=== PATIENT | female | born 1995 | race Caucasian/White ===

== ENCOUNTER 2023-08-17 13:35 | Outpatient (OUT) | payer BC, MEDICAID, SELFPAY | END 2023-08-17 13:36 | disposition home or self-care (01) | PROVIDERS: PCP Nurse Practitioner Family; Visit Provider Nurse Practitioner Family | DX: E66.9 Obesity, unspecified (principal) | CPT/HCPCS: 97802 ==

== ENCOUNTER 2023-08-20 10:35 | Outpatient (OUT) | payer BC, MEDICAID, SELFPAY ==
[2023-08-20 11:27] LABS: C Reactive Protein <0.2 mg/dL (<=1.0); Uric Acid 4.3 mg/dL (2.6-6.0)
[2023-08-21 06:09] LABS: Antistreptolysin O Ab 1622.9 IU/mL (0.0-200.0); Rheumatoid Factor (RF) <10.0 IU/mL (<14.0)
== END 2023-08-20 10:36 | disposition home or self-care (01) ==
LOC: LAB 10:37
PROVIDERS: PCP Nurse Practitioner Family; Visit Provider Nurse Practitioner Family
DX: M25.50 Pain in unspecified joint (principal)
CPT/HCPCS: 36415; 84550; 86038; 86060; 86140; 86430; 86431

== ENCOUNTER 2023-09-15 08:38 | Outpatient (OUT) | payer BC, MEDICAID, SELFPAY ==
--- NOTE | 2023-09-15 08:45 | MR_ITS ---
The [address] [address] Patient Name: GIGI FERGUSON MRN: [id number] date: 1995 Sex: F Assigned Patient Location: MRI Current Patient Location: MRI Accession/Order Number: [id number] Exam Date: 09/15/2023 08:59 Report Date: 09/15/2023 09:45 At the request of: NAOMIE RANGEL Procedure: MR head/brain wo con MR head/brain wo con, 09/15/2023 8:59 AM EST INDICATION: Chronic Intractable Headache R51.9 COMPARISON: There is no appropriate prior study for comparison. TECHNIQUE: Multiplanar, multisequential MRI images of brain were obtained without injection of contrast. FINDINGS: The cerebral sulci as well as ventricular system are appropriate for age. There is no restricted diffusion. There is no intracranial mass, mass effect, midline shift, intra or extra-axial fluid collection or large hemorrhage. Normal flow-void in the intracranial vessels is noted. There is mucosal thickening within the maxillary sinuses and right ethmoid cells. The visualized portions of orbits, mastoid air cells as well as remainder of paranasal sinuses are unremarkable. MR/MR head/brain wo con IMPRESSION: No acute intracranial process is noted. No definite intracranial pathology. Mucosal thickening of the maxillary sinuses and right ethmoidal cells. Electronically authenticated by: YANELIS CONRAD Date: 09/15/2023 09:45
== END 2023-09-15 08:39 | disposition home or self-care (01) ==
LOC: MRI 08:38
PROVIDERS: PCP Nurse Practitioner Family; Visit Provider Psychiatry & Neurology Neurology
DX: R51.9 Headache, unspecified (principal); G89.29 Other chronic pain
CPT/HCPCS: 70551

== ENCOUNTER 2023-10-04 17:26 | Emergency (ER) | payer BC, MEDICAID, SELFPAY ==
[2023-10-04 17:31] VITALS: BP 128/77; PULSE 86; RESP 18; TEMP 36.8; O2SAT 97; BMI 39.1
--- NOTE | 2023-10-04 17:54 | ED.NAVMDI1 ---
HPI - Nausea/Vomiting/Diarrhea General Chief complaint: Nausea/Vomiting/Diarrhea Stated complaint: dehydrated, vomitting the last 2 days Time Seen by Provider: 10/04/23 17:30 Source: patient Mode of arrival: walk-in Limitations: no limitations History of Present Illness HPI Narrative: Patient is a 27-year-old female who presents to the emergency department with concern for dehydration. She states she has had multiple episodes of vomiting over the last 3 days. She denies diarrhea. She has not had any objective fevers. She states both of her children have been sick, 1 child had vomiting and the other child had upper respiratory symptoms. Patient denies any cough, congestion. She has no significant abdominal pain although she states she did have some discomfort on the right side of her ribs when she was actively vomiting. She does not have any current abdominal pain, fevers. She states her family members were concerned that she was dehydrated and referred her to the ER. She has not had any urinary symptoms. She is not concerned for . Related Data Home Medications Medication Instructions Recorded Confirmed adalimumab 40 mg/0.4 mL 20 mg subcut Q14D 10/04/23 10/04/23 subcutaneous pen kit (Humira(CF) Pen) albuterol sulfate 90 mcg/actuation 1 puff inhalation Q8H PRN 10/04/23 10/04/23 aerosol inhaler shortness of breath or wheezing budesonide-formoterol HFA 160 2 puff inhalation Q12H PRN 10/04/23 10/04/23 mcg-4.5 mcg/actuation aerosol shortness of breath or wheezing inhaler (Symbicort) clonazepam 0.5 mg tablet 0.5 mg PO Q12H 10/04/23 10/04/23 erenumab-aooe 70 mg/mL 70 mg subcut .monthly 10/04/23 10/04/23 subcutaneous auto-injector (Aimovig Autoinjector) tiotropium bromide 1.25 2 puff inhalation Q24H 10/04/23 10/04/23 mcg/actuation mist for inhalation (Spiriva Respimat) tizanidine 4 mg tablet 4 mg PO Q8H 10/04/23 10/04/23 Previous Rx's Medication Instructions Recorded famotidine 20 mg tablet (Pepcid) 20 mg PO BID #10 tabs 10/04/23 ondansetron 4 mg disintegrating 4 mg PO Q6H PRN nausea and 10/04/23 tablet vomiting #12 tabs Allergies Allergy/AdvReac Type Severity Reaction Status Date / Time No Known Drug Allergies Allergy Verified 10/04/23 17:31 Review of Systems ROS Constitutional Denies: fever or chills Ears, nose, mouth, and throat Denies: throat pain or nasal congestion Cardiovascular Denies: chest pain Respiratory Denies: shortness of breath or cough Gastrointestinal Reports: nausea and vomiting; Denies: abdominal pain or diarrhea Genitourinary Denies: painful urination Musculoskeletal Denies: back pain Integumentary/Breast Denies: rash Neurological Denies: headache PFSH PFSH Social History Smoking status: Current every day smoker Exam Narrative Exam Narrative: Gen.: Awake, alert, in no distress Head: Normocephalic, atraumatic ENT: Moist mucous membranes Respiratory: No respiratory distress, lungs clear bilaterally Cardio: Regular rate and rhythm Gastrointestinal: Abdomen is soft, nondistended and nontender to palpation Extremities: Moves extremities equally Psych: Normal mood and affect Neuro: No focal neuro deficit Skin: Warm, dry, intact Constitutional Vital Signs, click to edit/add: Last Vital Signs Temp 98.4 F 10/04/23 20:18 Pulse 67 10/04/23 20:18 Resp 16 10/04/23 20:18 BP 107/87 10/04/23 20:18 Pulse Ox 100 10/04/23 20:18 O2 Del Method Room Air 10/04/23 20:18 Course Vital Signs Vital signs: Vital Signs Temperature 98.3 F 10/04/23 17:31 Pulse Rate 86 10/04/23 17:31 Respiratory Rate 18 10/04/23 17:31 Blood Pressure 128/77 10/04/23 17:31 Pulse Oximetry 97 10/04/23 17:31 Oxygen Delivery Method Room Air 10/04/23 17:31 Temperature 98.4 F 10/04/23 20:18 Pulse Rate 67 10/04/23 20:18 Respiratory Rate 16 10/04/23 20:18 Blood Pressure 107/87 10/04/23 20:18 Pulse Oximetry 100 10/04/23 20:18 Oxygen Delivery Method Room Air 10/04/23 20:18 MDM - Nausea/Vomiting/Diarrhea MDM Narrative Medical decision making narrative: Patient was medicated with IV fluids, Zofran, Pepcid. She reported still feeling nauseous although she did not have any episodes of vomiting in the emergency room. After an additional 4 mg of IV Zofran, patient was able to tolerate water with no difficulty. Abdomen is soft and benign in the ER. She has stable vital signs, she will be discharged home with Zofran and Pepcid. Follow-up with PCP and return to the ER if symptoms change or worsen. Urine specimen is contaminated, patient has no urinary symptoms so we will wait for culture. Medical Records Attestation: I reviewed the patient's medical records. Lab Data Attestation: I reviewed the patient's lab results. Labs: Lab Results 10/04/23 Range/Units 18:12 WBC 8.3 (4.0-11.0) 10^3/uL RBC 4.78 (4.20-5.40) 10^6/uL Hgb 12.6 (12.0-16.0) g/dL Hct 39.5 (36.0-48.0) % MCV 82.6 (81.0-99.0) fL MCH 26.4 L (26.7-34.0) pg MCHC 31.9 (29.9-35.2) g/dL RDW 14.7 (11.0-15.0) % Plt Count 394 (150-450) 10^3/uL MPV 8.8 L (9.5-13.5) fL Neut % (Auto) 63.9 (43.0-75.0) % Lymph % (Auto) 25.9 (20.5-60.0) % [place] % (Auto) 9.0 (1.7-12.0) % Eos % (Auto) 0.6 L (0.9-7.0) % Baso % (Auto) 0.4 (0.2-2.0) % Neut # (Auto) 5.3 (1.4-6.5) 10^3/uL Lymph # (Auto) 2.2 (1.2-3.8) 10^3/uL [place] # (Auto) 0.8 (0.3-0.8) 10^3/uL Eos # (Auto) 0.1 (0.0-0.7) 10^3/uL Baso # (Auto) 0.0 (0.0-0.1) 10^3/uL Abs Immat Gran (auto) 0.02 (0.00-0.03) 10^3/uL Imm/Tot Granulo (auto) 0.2 (0.0-0.5) % Sodium 138 (136-145) mmol/L Potassium 3.5 (3.5-5.1) mmol/L Chloride 99 (98-107) mmol/L Carbon Dioxide 27.4 (21.0-32.0) mmol/L Anion Gap 15.1 BUN 16.0 (7.0-18.0) mg/dL Creatinine 0.85 (0.55-1.02) mg/dL Est GFR ( Amer) >60 (>=60) Est GFR (Non-Af Amer) >60 (>=60) BUN/Creatinine Ratio 18.8 Glucose 86 (74-106) mg/dL Calcium 8.9 (8.5-10.1) mg/dL Total Bilirubin 0.5 (0.2-1.0) mg/dL AST 14 L (15-37) U/L ALT 29 (14-59) U/L Alkaline Phosphatase 58 (46-116) U/L Total Protein 8.9 H (6.4-8.2) g/dL Albumin 4.0 (3.4-5.0) g/dL Globulin 4.9 g/dL Albumin/Globulin Ratio 0.8 Lipase 20.0 (16.0-77.0) U/L Urine Color Yellow (YELLOW) Urine Clarity Clear (CLEAR) Urine pH 6.0 (5.0-9.0) Ur Specific [place] >=1.030 A (1.005-1.025) Urine Protein 30 A (NEG/TRACE) mg/dL Urine Glucose (UA) Negative (NEGATIVE) mg/dL Urine Ketones 15 A (NEGATIVE) mg/dL Urine Occult Blood Moderate A (NEGATIVE) Urine Nitrite Negative (NEGATIVE) Urine Bilirubin Negative (NEGATIVE) Urine Urobilinogen 0.2 (0.2-1.0) EU/dL Ur Leukocyte Esterase Negative (NEGATIVE) Urine RBC 2-5 A (0-2) #/HPF Urine WBC 2-5 A (NONE SEEN) #/HPF Ur Squamous Epith Cells Moderate A (NONE/RARE) #/LPF Urine Crystals None seen (None Seen) #/HPF Urine Bacteria Large A (NONE SEEN) #/HPF Urine Casts None seen (NONE SEEN) #/LPF Urine Mucus Large A (NONE SEEN) Ur Culture Indicated? Yes Discharge Plan Discharge Chief Complaint: Nausea/Vomiting/Diarrhea Clinical Impression: Nausea & vomiting Patient Disposition: Home, Self-Care Time of Disposition Decision: 20:01 Condition: Good Prescriptions / Home Meds: New famotidine [Pepcid] 20 mg tablet 20 mg PO BID Qty: 10 0RF ondansetron 4 mg tablet,disintegrating 4 mg PO Q6H PRN (Reason: nausea and vomiting) Qty: 12 0RF No Action Humira(CF) Pen 40 mg/0.4 mL pen injector kit 20 mg SUBCUT Q14D budesonide-formoterol [Symbicort] 160-4.5 mcg/actuation HFA aerosol inhaler 2 puff INHALATION Q12H PRN (Reason: shortness of breath or wheezing) clonazepam 0.5 mg tablet 0.5 mg PO Q12H Aimovig Autoinjector 70 mg/mL auto-injector 70 mg SUBCUT .monthly Spiriva Respimat 1.25 mcg/actuation mist 2 puff INHALATION Q24H tizanidine 4 mg tablet 4 mg PO Q8H albuterol sulfate 90 mcg/actuation HFA aerosol inhaler 1 puff INHALATION Q8H PRN (Reason: shortness of breath or wheezing) Instructions: Acute Nausea and Vomiting (ED) Stand Alone Forms: Portal Instructions Referrals: ZACK LARA [Primary Care Provider] - 1 week Discharge Date/Time: 10/04/23 20:20
[2023-10-04] MEDS: FAMOTIDINE/PF 20 MG/2 ML VIAL IV (18:07)
[2023-10-04] MEDS: ONDANSETRON PF 4 MG/2 ML VIAL IV ×2 (18:07→19:28)
[2023-10-04] MEDS: 0.9 % SODIUM CHLORIDE 1,000 ML 1000 ML IV (18:07)
[2023-10-04 18:21] LABS: Basophils Percent Auto 0.4 % (0.2-2.0); Eosinophils Absolute Auto 0.1 10^3/uL (0.0-0.7); Eosinophils Percent Auto 0.6 % (0.9-7.0); Hematocrit 39.5 % (36.0-48.0); Hemoglobin 12.6 g/dL (12.0-16.0); Immature Granulocytes Abs Auto 0.02 10^3/uL (0.00-0.03); Immature Granulocytes Pct Auto 0.2 % (0.0-0.5); Lymphocytes Absolute Auto 2.2 10^3/uL (1.2-3.8); Lymphocytes Percent Auto 25.9 % (20.5-60.0); Mean Corpuscular HGB Conc 31.9 g/dL (29.9-35.2); Mean Corpuscular Hemoglobin 26.4 pg (26.7-34.0); Mean Corpuscular Volume 82.6 fL (81.0-99.0); Mean Platelet Volume 8.8 fL (9.5-13.5); Monocytes Absolute Auto 0.8 10^3/uL (0.3-0.8); Neutrophils Absolute Auto 5.3 10^3/uL (1.4-6.5); Neutrophils Percent Auto 63.9 % (43.0-75.0); Platelet Count 394 10^3/uL (150-450); Red Blood Count 4.78 10^6/uL (4.20-5.40); Red Cell Distribution Width 14.7 % (11.0-15.0); White Blood Count 8.3 10^3/uL (4.0-11.0)
[2023-10-04 18:22] LABS: Bilirubin Urine NEGATIVE (NEGATIVE); Blood Urine MODERATE (NEGATIVE); Clarity Urine CLEAR (CLEAR); Color Urine YELLOW (YELLOW); Glucose Urine UA NEGATIVE (NEGATIVE); Ketones Urine 15 mg/dL (NEGATIVE); Leukocyte Esterase Urine NEGATIVE (NEGATIVE); Nitrite Urine NEGATIVE (NEGATIVE); Protein Urine 30 mg/dL (NEG/TRACE); Specific Gravity Urine >=1.030 (1.005-1.025); Urobilinogen Urine 0.2 EU/dL (0.2-1.0)
[2023-10-04 18:24] LABS: Urine Microscopic Indicated YES
[2023-10-04 18:30] LABS: Bacteria Urine LARGE #/HPF (NONE SEEN); Cast Seen? NONE SEEN #/LPF (NONE SEEN); Crystals Seen? None Seen #/HPF (None Seen); Mucus Urine LARGE (NONE SEEN); Squamous Epithelial Cell Urine MODERATE #/LPF (NONE/RARE); Urine Culture Indicated YES
[2023-10-04 18:49] LABS: Alanine Aminotransferase 29 U/L (14-59); Albumin Globulin Ratio 0.8; Alkaline Phosphatase 58 U/L (46-116); Anion Gap 15.1; Aspartate Amino Transferase 14 U/L (15-37); BUN Creatinine Ratio 18.8; Bilirubin Total 0.5 mg/dL (0.2-1.0); Calcium 8.9 mg/dL (8.5-10.1); Carbon Dioxide 27.4 mmol/L (21.0-32.0); Chloride 99 mmol/L (98-107); Estimated GFR (African America >60 (>=60); Estimated GFR (Non-African Ame >60 (>=60); Globulin 4.9 g/dL; Glucose 86 mg/dL (74-106); Potassium 3.5 mmol/L (3.5-5.1); Sodium 138 mmol/L (136-145); Total Protein 8.9 g/dL (6.4-8.2)
[2023-10-04 19:04] VITALS: BP 123/78; PULSE 76; RESP 16; TEMP 37.1; O2SAT 100
[2023-10-04 20:18] VITALS: BP 107/87; PULSE 67; RESP 16; TEMP 36.9; O2SAT 100
== END 2023-10-04 20:20 | disposition home or self-care (01) ==
PROVIDERS: Physician Assistant; Emergency Provider Emergency Medicine; PCP Nurse Practitioner Family
DX: R11.2 Nausea with vomiting, unspecified (principal); Z79.899 Other long term (current) drug therapy; F17.210 Nicotine dependence, cigarettes, uncomplicated
CPT/HCPCS: 36415; 80053; 81001; 83690; 85025; 87086; 96374; 96375; 96376; 99285

== ENCOUNTER 2024-01-26 09:30 | Outpatient (OUT) | payer MEDICAID, SELFPAY ==
--- NOTE | 2024-01-26 09:43 | XR_ITS ---
The [address] [address] Patient Name: GIGI FERGUSON MRN: [id number] date: 1995 Sex: F Assigned Patient Location: [facility] Current Patient Location: [facility] Accession/Order Number: [id number] Exam Date: 01/26/2024 10:05 Report Date: 01/26/2024 15:42 At the request of: ZACK LARA Procedure: XR lumbar spine 2-3V EXAMINATION: XR lumbar spine 2-3V HISTORY: Sciatica M54.30 COMPARISON: No relevant comparison available. FINDINGS: BONES: Normal. No significant spondylosis, scoliosis, fracture, or visible bony lesion. DISC SPACES: Normal. No significant disc height narrowing, subluxation, or endplate abnormality. PARASPINOUS: Negative. No paraspinous abnormality is seen. OTHER: Negative. XR/XR lumbar spine 2-3V IMPRESSION: No acute radiographic abnormality Electronically authenticated by: TAMMY POTTER Date: 01/26/2024 15:42
--- OUTSIDE RECORDS SUMMARY | 2024-01-26 09:45 | XMS_ITS | CCD ---
Author Organization [facility] Care Team Providers Care Photo Mask Processor Name Role Phone Basia Mattson Primary Care Provi lizeth Jm Bell Unavailable MAEGAN LARA S Primary Care Unavailable MARCO, MAEGAN Primary Care Unavailable HAY ., DR CÁRDENAS Attending Unavailable HAY ., DR CÁRDENAS Admitting Unavailable HAY ., DR CÁRDENAS Consulting Unavailable MARCO, MAEGAN Primary Care Unavailable JACQUELIN, DR REILLY Attending Unavailable JACQUELIN, DR REILLY Admitting Unavailable JACQUELIN, DR REILLY Consulting Unavailable NEFCY, BRI Consulting Unavailable MARCO, MAEGAN Primary Care Unavailable MARCO, MAEGAN Consulting Unavailable MARCO, MAEGAN Attending Unavailable MARCO, MAEGAN Admitting Unavailable MARCO, MAEGAN Primary Care Unavailable MARCO, MAEGAN Consulting Unavailable MARCO, MAEGAN Attending Unavailable MARCO, MAEGAN Admitting Unavailable MARCO, MAEGAN Consulting Unavailable MARCO, MAEGAN Attending Unavailable MARCO, MAEGAN Admitting Unavailable MARCO, MAEGAN Primary Care Unavailable MD Jm Bell Attending Provider MARCELINO Lara Maegan Lara Primary Care Provider Marco Maegan Lara Primary Care Unavailable Jm Bell Attending UnavailJm Anthony Admitting Unavailrosina e Marco TERMITE CONTROL SERVICE REPRESENTATIVE-ANGELO, Maegan S Primary Care Provider Unallocated, [place] Provider Primary Care Provider NAOMIE THRASHER Attending Unavailable BRIAN MC Attending Unavailable MARCO, MAEGAN Referring Unavailable MYRIAM RAY Attending Unavailable JAEL ALVARADO Attending Unavailable MAEGAN LARA Referring Unavailable NAOMIE THRASHER Attending Unavailable BRIAN MC Attending Unavailable MAEGAN LARA Referring Unavailable HUGO FRIEDMAN Admitting Unavailable HUGO FRIEDMAN Attending Unavailable MARCO, MAEGAN S Primary Care Unavailable MARCO, MAEGAN S Primary Care Unavailable MARCO, MAEGAN S Referring Unavailable MARCO, MAEGAN S Primary Care Unavailable Allergies Allergy Classification Reported Allergen(s) Allergy Type Date of Onset Reaction(s) Facility (4 sources) Horse-Derived Products Propensity to adverse reactions to drug 3 [place], [place] (4 sources) Other Propensity to adverse reactions 2 [place] (2 sources) Horse/Equine Containing Products; Translations: [Horse/Equine Containing Products] Allergy to substance 3 Swelling of Lip/Tongue/Thro at [facility] Medications Current Medications Medication Drug Class(es) Dates Sig (Normalized) Sig (Original) acetaminophen 32 mg/ml oral suspension (5 sources) Start: 01-05-2024 acetaminophen (Children's TylenoL) 160 mg/5 mL suspension Indications: pain Children's tylenol every 6 hours. Give recommended dose for your child's weight. 0 01/05/2024 Active Start: 05-28-2020 acetaminophen (TYLENOL) tablet 650 mg take 1 tablet by verónica th every six hours as needed for pain acetaminophen (TYLENOL EXTRA STRENGTH) 500 mg tablet Indications: pain Take 1 tablet (500 mg total) by mouth every 6 (six) hours as needed for pain. 0 Active 0.4 ml adalimumab 100 mg/ml auto-injector (20 sources) Tumor Necrosis Factor Hernan Start: 04-29-2023 Adalimumab (Humira(C f) Pen) 40 mg/0.4 mL pen injector kit Active 40 MG SUBCUT As Directed April 29, 2023 12:00am Start: 02-03-2021 Humira Pen 40 MG/0.8ML 1 prefilled syringe Subcutaneous every 2 weeks for 30 days citrate free pen needle Jan, Active Start: 02-03-2021 Humira Pen 40 MG/0.4ML 1 pen Subcutaneous every 2 weeks for 30 days citrate free PRIOR AUTH APPROVED UNTIL 03/06/23 Jan, Active Start: 01-16-2020 Adalimumab (HU MANOHAR) 40 MG/0.4ML PSKT Inject 40 mg into the skin every 14 days 2 each 5 01/16/2020 Active Start: 05-02-2019 End: 05-29-2020 HUMIRA PEN 40 MG/0.8ML injec tion INJECT ONE PEN (40 MG) SUBCUTANEOUSLY EVERY 14 DAYS. REFRIGERATE. 1 each 5 05/02/2019 05/29/2020 Discontinued (Stop Taking at Discharge) inject 0.8 mL by sub cutaneous injection once adalimumab (HUMIRA) 20 mg/0.4 mL injection kit Inject 0.8 mL (40 mg total) under the skin every 14 (fourteen) days. 0 Active Humira 40 MG/0.4 ML Prefilled Syringe Kit prefilled syringe Inject 40 mg under the skin every 14 (fourteen) days. 0 Active [id number] 200 actuat albuterol 0.09 mg/actuat metered dose inhaler (11 sources) beta2-Adrenergic Agonist Start: 04-29-2023 take 1 puff(s) by inhalation every four to six hours Albuterol Sulfate (Ventolin Hfa) 90 mcg/actuation Hfa Aerosol Inhaler Active 2 PUFF INHALATION EVERY 4-6 HOURS April 29, 2023 12:00am Start: 11-05-2022 take 1 puff(s) by in halation four times daily as needed albuterol (PROVENTIL HFA;VENTOLIN HFA) 90 mcg/actuation inhaler Inhale 1 puff 4 (four) times a day as needed. 0 11/05/2022 Active Start: 11-05-2022 take 1 puff(s) by in halation every four hours Ventolin HFA 108 (90 Base) MCG/ACT inhaler Inhale 1 puff every 4 (four) hours. 0 11/05/2022 Active take 1 puff(s) by in halation every four hours as needed Ventolin HFA 108 (90 Base) MCG/ACT 1 puff as needed Inhalation every 4 hrs Active ARIPiprazole 5 mg oral tablet (1 source) Atypical Antipsychotic take 1 tablet by mouth once daily ARIPiprazole (ABILIFY) 5 MG tablet Take 5 mg by mouth daily 0 Active benzocaine 200 mg/ml / menthol 5 mg/ml topical spray (1 source) Standardized Chemical Allergen Start: 05-28-20 benzocaine-menthol (DERMOPLAST) 20-0.5 % spray 120 actuat budesonide 0.16 mg/actuat / formoterol fumarate 0.0045 mg/actuat metered dose inhaler (19 sources) Corticosteroid, beta2-Adrenergic Agonist Start: 04-29-20 23 take 1 puff(s) by inhalation twice daily Budesonide-Formoter ol (Symbicort) 160-4.5 mcg/actuation Hfa Aerosol Inhaler Active 2 PUFF INHALATION Twice daily April 29, 2023 12:00am Start: 11-11-2022 take 2 puff(s) by in halation in the morning SYMBICORT 160-4.5 mcg/actuation inhaler Inhale 2 puffs in the morning and 2 puffs before bedtime. Rise mouth after use. 0 11/11/2022 Active take 2 puff(s) by in halation once daily Symbicort 80-4.5 MCG/ACT 2 puffs Inhalation Once a day Active calcium carbonate 1500 mg oral tablet (7 sources) take 1 tablet by verónica th in the morning, then take 1 tablet by mouth at mealtime calcium carbonate (OS-GINGER) 600 mg (1,500 mg) tablet Take 1 tablet (600 mg total) by mouth in the morning and 1 tablet (600 mg total) in the evening. Take with meals. 0 Active End: 05-29-2020 take 1 tablet by mouth once daily calcium carbonate (OSCAL) 500 MG TABS tablet Take 500 mg by mouth daily 0 05/29/2020 Discontinued (Stop Taking at Discharge) cephalexin 500 mg oral capsule (2 sources) Cephalosporin Antibacterial Start: 12-22-2023 End: 01-01-2024 take 1 capsule by mouth in the morning cephalexin (Keflex) 500 MG capsule Indications: Folliculitis Take 1 capsule (500 mg) by mouth in the morning and 1 capsule (500 mg) before bedtime. Do all this for 10 days. 20 capsule 0 12/22/2023 01/01/2024 Active cholecalciferol 0.05 mg oral capsule (2 sources) Vitamin D Start: 04-29-2023 take 1 capsule by mouth once daily Cholecalciferol (Vitamin D3) (Vitamin D3) 50 mcg (2,000 unit) Capsule Active 50 MCG PO Daily April 29, 2023 12:00am take 1 capsule by [facility] every twenty-four hours Vitamin D3 50 MCG (1999) 1 capsule Orally Once a day Active cholecalciferol, vitamin D3, (VITAMIN D3 ORAL) (3 sources) cholecalciferol, vitamin D3, (VITAMIN D3 ORAL) Take by mouth daily. 0 Active clonazePAM 0.5 mg oral tablet (19 sources) Benzodiazepine Start: 04-29-20 take 0.25 mg by mouth twice daily Clonazepam Active 0.25 MG PO Twice daily April 29, 2023 12:00am Start: 03-30-2023 clonazePAM (Kl onoPIN) 0.5 mg tablet Take 1 tablet (0.5 mg total) by mouth as needed. skizophenia 0 03/30/2023 Active CoQ-10 100 MG (1 source) CoQ-10 100 MG as directed Orally Active docusate sodium 100 mg oral capsule (2 sources) Start: 05-28-2020 docusate sodiu m (COLACE) capsule 100 mg Start: 12-09-2018 End: 08-23-2019 take 1 capsule by mouth twice daily as needed for constipation docusate sodium (COLACE, DULCOLAX) 100 MG CAPS Take 100 mg by mouth 2 times daily as needed for Constipation 60 capsule 3 12/09/2018 08/23/2019 Discontinued (Stop Taking at Discharge) 1 ml erenumab-aooe 140 mg/ml auto-injector (13 sources) Start: 12-07-2023 End: 06-04-2024 inject 1 mL by subcutaneous injection once erenumab (Aimovig) 140 MG/ML injection Indications: Migraine without aura, intractable, without status migrainosus (CMS/HCC) , 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) Inject 1 mL (140 mg) under the skin every 28 (twenty-eight) days 1 each 5 12/07/2023 06/04/2024 Active Start: 05-10-2023 End: 12-07-2023 inject 1 mL by subcutaneous injection every 30 days AIMOVIG AUTOINJECTOR 70 mg/mL auto-injector Inject 1 mL under the skin every 30 (thirty) days. 0 05/10/2023 Active Start: 04-29-2023 inject 70 mg by subc utaneous injection every month Erenumab-Aooe (Aimovig Autoinjector) 70 mg/mL auto-injector Active 70 MG SUBCUT every month April 29, 2023 12:00am ferrous fum/folic acid/Bcomp,C (IRON FUM-VIT C-B COMPLEX-FA ORAL) (3 sources) ferrous fum/foli c acid/Bcomp,C (IRON FUM-VIT C-B COMPLEX-FA ORAL) Take by mouth daily. 0 Active ferrous sulfate 325 mg oral tablet (6 sources) Start: 04-29-2023 take 1 tablet by mouth once daily Ferrous Sulfate (Iron) 325 mg (65 mg iron) Tablet Active 325 MG PO Daily April 29, 2023 12:00am Start: 05-28-2020 ferrous sulfat e (IRON 325) tablet 325 mg Start: 12-09-2018 take 1 tablet by verónica th twice daily at mealtime ferrous sulfate 325 (65 Fe) MG tablet Take 1 tablet by mouth 2 times daily (with meals) 30 tablet 3 12/09/2018 Active fluconazole 100 mg oral tablet (2 sources) Azole Antifungal Start: 05-25-2020 End: 05-25-2020 take 1.5 tablets by mouth once fluconazole (DIFLUCAN) 100 MG tablet Take 1.5 tablets by mouth once for 1 dose 1 tablet 0 05/25/2020 05/25/2020 Active Start: 05-22-2020 End: 05-22-2020 fluconazole (DIFLUCAN) table t 150 mg HAIR, SKIN AND NAILS, BIOTIN, ORAL (3 sources) HAIR, SKIN AND NAILS, BIOTIN, ORAL Take by mouth daily. 0 Active ibuprofen 800 mg oral tablet (1 source) Nonsteroidal Anti-inflammatory Drug Start: 0 ibuprofen (ADVIL;MOTRIN) tablet 800 mg Iron (1 source) Iron Active lamoTRIgine 25 mg oral tablet (1 source) Mood Stabilizer, Anti-epileptic Agent take 2 tablets by mouth once daily lamoTRIgine (LAMICTAL) 25 MG tablet Take 50 mg by mouth nightly 0 Active loratadine 10 mg oral tablet (5 sources) Start: 3 take 1 tablet by mouth once daily Loratadine (Claritin) 10 mg Tablet Active 10 MG PO Daily April 29, 2023 12:00am Magnesium (2 sources) Start: 3 take 400 mg by mouth once daily Magnesium Active 400 MG PO Daily April 29, 2023 12:00am Magnesium 400 MG as directed Orally Active magnesium oxide 400 mg oral capsule (3 sources) magnesium oxide 400 mg magnesium capsule Take by mouth daily. 0 Active magnesium sulfate 0.0277 meq/ml / potassium sulfate 0.0374 meq/ml / sodium sulfate 0.257 meq/ml oral solution (1 source) Start: 019 Na Sulfate-K Sulfate-Mg Sulf (SUPREP BOWEL PREP KIT) 17.5-3.13-1.6 GM/177ML SOLN Take as directed 2 Bottle 0 01/10/2019 Active methylPREDNISolone (1 source) Corticosteroid Start: 024 methylPREDNISolone (MEDROL, ARLIN,) 4 mg tablet follow package directions 21 tablet 0 01/05/2024 Active Multiple Vitamins-Minerals (THERAPEUTIC MULTIVITAMIN-MINERALS) tablet (2 sources) take 1 tablet by mouth once daily Multiple Vitamins-Minerals (THERAPEUTIC MULTIVITAMIN-MINERALS) tablet Take 1 tablet by mouth daily 0 Active multivit-min/ferrous fumarate (MULTI VITAMIN ORAL) (3 sources) take 1 tablet by mouth once in the morning multivit-min/ferrous fumarate (MULTI VITAMIN ORAL) Take 1 tablet by mouth in the morning. 0 Active Multivitamin preparation (3 sources) Start: 023 take 1 tablet by mouth once daily Multivitamin Active 1 TAB PO Daily April 29, 2023 12:00am take 1 tablet by mouth once abdirashid y Multi Vitamin - 1 tablet Orally Once a day Active NON FORMULARY (3 sources) NON FORMULARY da scott. Med Name: BioSTLcandi 0 Active [place] 3 1000 MG (1 source) take 1 capsule by mouth once daily [place] 3 1000 MG 1 capsule Orally Once a day Active omega 4-ery-mfo-fish oil (Fish OiL) 300-1,000 mg capsule (3 sources) omega 3-dha-epa- fish oil (Fish OiL) 300-1,000 mg capsule Take by mouth daily. 0 Active [place]-3 Fatty Acids-Fish Oil (1 source) Start: 2022 take 1 capsule by mouth once daily [place]-3 Fatty Acids-Fish Oil Active 1 CAP PO Daily April 29, 2023 12:00am ondansetron 4 mg disintegrating oral tablet (1 source) Serotonin-3 Receptor Antagonist Start: 2019 ondansetron (ZOFRAN-ODT) disintegrating tablet 8 mg oxyCODONE hydrochloride 1 mg/ml oral solution (1 source) Opioid Agonist Start: 2023 End: 2023 take 5 mL by mouth every four hours as needed for pain oxyCODONE (ROXICODONE) 5 mg/5 mL solution Indications: Sleep apnea, unspecified type Take 5 mL (5 mg total) by mouth every 4 (four) hours as needed for pain for up to 7 days. Max Daily Amount: 30 mg 210 mL 0 01/05/2024 01/12/2024 Active polyethylene glycol 3350 21958 mg powder for oral solution (6 sources) Osmotic Laxative End: 2019 polyethylene glycol (GLYCOLAX) 17 gram/dose powder Take 17 g by mouth daily as needed. 0 Active polyethylene glycol 3350 [id number] mg / potassium chloride 2970 mg / sodium bicarbonate 6740 mg / sodium chloride 5860 mg / sodium sulfate 01422 mg powder for oral solution (4 sources) Osmotic Laxative Start: 2022 Golytely 236 GM 8oz every 15 minutes Orally at 4pm the day prior to colonoscopy for 1 days Feb, Active predniSONE 20 mg oral tablet (4 sources) take 3 tablets by mouth every twenty-four hours predniSONE 20 MG 3 TABLETS Orally Once a day Active 3 ml sodium chloride 9 mg/ml injection (2 sources) Start: 2019 sodium chloride flush 0.9 % injection 10 mL SUMAtriptan 100 mg oral tablet (8 sources) Serotonin-1b and Serotonin-1d Receptor Agonist Start: 2022 take 1 tablet by mouth every two hours SUMAtriptan (IMITREX) 100 mg tablet take 1 tablet by mouth AT ONSET OF MIGRAINE may repeat in 2 hours... (REFER TO PRESCRIPTION NOTES). 0 10/05/2023 Active 60 actuat tiotropium 0.55466 mg/actuat inhalation spray (11 sources) Anticholinergic Start: 2022 take 1 puff(s) by inhalation once daily Tiotropium [place] (Spiriva Respimat) 1.25 mcg/actuation Mist Active 1 PUFF INHALATION Daily April 29, 2023 12:00am Start: 11-12-2022 take 1.25 ug by inha lation in the morning SPIRIVA RESPIMAT 1.25 mcg/actuation mist Inhale 2 puffs in the morning. 0 11/12/2022 Active Start: 11-12-2022 Spiriva Respim at 1.25 MCG/ACT inhaler Inhale 2 puffs in the morning. 0 11/12/2022 Active take 1.25 ug by inha lation once daily Spiriva Respimat 1.25 MCG/ACT 2 puffs Inhalation Once a day Active tiZANidine 4 mg oral tablet (9 sources) Central alpha-2 Adrenergic Agonist Start: 06-29-2023 tiZANidine (Zanaflex ) 4 MG tablet Indications: Cervical paraspinal muscle spasm 1 po up to TID 90 tablet 3 06/29/2023 Active Start: 03-30-2023 take 1 tablet by verónica every eight hours as needed tiZANidine (ZANAFLEX) 4 mg tablet Take 1 tablet (4 mg total) by mouth every 8 (eight) hours as needed. 0 03/30/2023 Active tranexamic acid 650 mg oral tablet (1 source) Antifibrinolytic Agent Start: 12-10-2023 End: 12-24-2023 take 2 tablets by mouth three times daily tranexamic acid (LYSTEDA) 650 mg tablet Indications: Platelet function defect (CMS-HCC) Take 2 tablets (1,300 mg total) by mouth 3 (three) times a day for 14 days. After surgery 84 tablet 0 12/10/2023 12/24/2023 Active ubidecarenone 100 mg oral capsule (4 sources) Start: 04-29-2023 Coenzyme Q10 (Co Q-10) 100 mg Capsule Active 100 MG PO Daily April 29, 2023 12:00am take 1 capsule by mo [facility] once in the morning coenzyme Q10 (CO Q-10) 100 mg capsule Ta ke 1 capsule (100 mg total) by mouth in the morning. 0 Active witch deidra 500 mg/ml medicated pad (1 source) Start: 05-28-2020 witch deidra-gl ycerin (CINDY) pad Completed/Discontinued Medications Medication Drug Class(es) Dates Sig (Normalized) Sig (Original) ascorbic acid 60 mg / beta carotene 5000 unt / copper sulfate 40 mg / dl-alpha tocopheryl acetate 30 unt / sodium selenite 0.04 mg / zinc oxide 40 mg oral tablet (2 sources) Vitamin C End: 05-29-2020 take 1 tablet by mouth once daily Multiple Vitamins-Minerals (THERAPEUTIC MULTIVITAMIN-ELECTRICAL ENGINEERING PROFESSOR ALS) tablet Take 1 tablet by mouth daily 0 05/29/2020 Discontinued (Stop Taking at Discharge) azaTHIOprine 50 mg oral tablet (1 source) Purine Antimetabolite Start: 11-16-2017 End: 08-23-2019 take 1 tablet by mouth twice daily azaTHIOprine (IMURAN) 50 MG tablet Take 1 tablet by mouth 2 times daily 60 tablet 5 11/16/2017 08/23/2019 Discontinued (Stop Taking at Discharge) calcium chloride 0.0014 meq/ml / potassium chloride 0.004 meq/ml / sodium chloride 0.103 meq/ml / sodium lactate 0.028 meq/ml injectable solution (2 sources) Start: 05-27-2020 End: 05-28-2020 lactated ringers infusion Start: 08-23-2019 lactated ringe rs infusion clotrimazole 10 mg/ml topical cream (2 sources) Azole Antifungal Start: 05-22-2020 End: 05-29-2020 clotrimazole (LOTRIMIN AF) 1 % cream Apply topically 2 times daily. 1 Tube 0 05/22/2020 05/29/2020 Discontinued (Stop Taking at Discharge) 60 actuat formoterol fumarate 0.005 mg/actuat / mometasone furoate 0.1 mg/actuat metered dose inhaler (4 sources) Corticosteroid, beta2-Adrenergic Agonist Start: 01-17-2013 End: 05-27-2020 take 2 puff(s) by inhalation twice daily Mometasone Formoterol (DULERA) 100-5 MCG/ACT inhaler Indications: Asthma Inhale 2 puffs into the lungs 2 times daily. 1 Inhaler 4 01/17/2013 05/27/2020 Discontinued (LIST CLEANUP) hydrOXYzine pamoate 50 mg oral capsule (1 source) Antihistamine Start: 04-23-2020 End: 04-23-2020 hydrOXYzine (VISTARIL) capsule 50 mg mometasone furoate 0.05 mg/actuat metered dose nasal spray (4 sources) Corticosteroid Start: 10-18-2012 End: 05-27-2020 take 1 spray(s) by inhalation once daily mometasone (NASONEX) 50 MCG/ACT nasal spray Indications: Asthma 1 spray by Nasal route daily. 1 Inhaler 3 10/18/2012 05/27/2020 Discontinued (LIST CLEANUP) montelukast 10 mg oral tablet (4 sources) Leukotriene Receptor Antagonist Start: 01-17-2013 End: 05-27-2020 take 1 tablet by mouth once daily montelukast (SINGULAIR) 10 MG tablet Indications: Asthma Take 1 tablet by mouth nightly. 30 tablet 3 01/17/2013 05/27/2020 Discontinued (LIST CLEANUP) oxytocin (PITOCIN) 30 Units in sodium chloride 0.9 % 500 mL infusion (1 source) Start: 05-27-2020 End: 05-28-2020 oxytocin (PITOCIN) 30 Units in sodium chloride 0.9 % 500 mL infusion Spacer/Aero-Holdin g Chambers (V[employer]EX VALVED HOLDING CHAMBER) BOY (4 sources) Start: 01-17-2013 End: 05-27-2020 Spacer/Aero-Holdi ng Chambers (VORTEX VALVED HOLDING CHAMBER) BOY Indications: Asthma by Does not apply route. 1 Device 0 01/17/2013 05/27/2020 Discontinued (LIST CLEANUP) Start: 01-17-2013 Spacer/Aero-Ho lding Chambers (VORTEX VALVED HOLDING CHAMBER) BOY Indications: Asthma by Does not apply route. 1 Device 0 01/17/2013 Active Problems Active Problems Problem Classification Problem Date Documented Date Episodic/Chronic Acute and chronic tonsillitis (4 sources) Hypertrophy of tonsils; Translations: [Hypertrophy of tonsils] Onset: 3 12-10-2023 Chronic Asthma (5 sources) Asthma; Translations: [Unspecified asthma, uncomplicated] Onset: 2 07-19-2012 Chronic Attention-deficit conduct and disruptive behavior disorders (4 sources) Attention deficit hyperactivity disorder; Translations: [ADHD (attention deficit hyperactivity disorder)] Onset: 4 04-16-2014 Chronic Cardiac dysrhythmias (4 sources) Palpitations; Translations: [PALPITATIONS] Onset: 3 Episodic Coagulation and hemorrhagic disorders (4 sources) Qualitative platelet disorder; 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] Onset: 3 12-10-2023 Chronic Headache; including migraine (10 sources) Refractory migraine without aura; Translations: [Migraine without aura, intractable, without status migrainosus] Onset: 3 12-07-2023 Chronic Headache; including migraine (1 source) Headache; including migraine; Translations: [HEADACHE UNSPECIFIED] Onset: 2 Hemorrhoids (4 sources) Internal hemorrhoids; Translations: [Internal hemorrhoids] 08-23-2019 Episodic Immunity disorders (4 sources) Drug-induced immunodeficiency ; 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] Onset: 3 09-09-2016 Chronic Joint disorders and dislocations; trauma-related (6 sources) Patellofemoral syndrome of left knee; Translations: [Patellofemoral disorders, left knee] Onset: 3 05-31-2023 Chronic Noninfectious gastroenteritis (10 sources) Colitis; Translations: [Noninfective gastroenteritis and colitis, unspecified] Onset: 2 Resolved: 2 Episodic Other and unspecified benign neoplasm (4 sources) Pseudopolyposis of colon; Translations: [Pseudopolyposis of colon without complication] 08-23-2019 Chronic Other inflammatory condition of skin (4 sources) Psoriasis; Translations: [Psoriasis] Onset: 3 01-16-2013 Chronic Other liver diseases (4 sources) Liver cyst; Translations: [Benign liver cyst] Onset: 3 01-16-2013 Chronic Other lower respiratory disease (3 sources) Snoring; Translations: [Snoring] Onset: 4 12-10-2023 Episodic Other lower respiratory disease (1 source) Snoring; Translations: [Snoring] Onset: 4 Episodic Other non-traumatic joint disorders (4 sources) Enteropathic arthritis; 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] Onset: 6 09-09-2016 Chronic Other and delivery including normal (5 sources) Term ; Translations: [Term ] Onset: 9 12-07-2018 Episodic Other skin disorders (2 sources) Folliculitis; Translations: [Follicular disorder, unspecified] 12-22-2023 Episodic Other upper respiratory disease (3 sources) Pain in throat; Translations: [PAIN IN THROAT] Onset: 3 Episodic Other upper respiratory infections (10 sources) Pharyngitis; Translations: [Streptococcal pharyngitis] Onset: 3 Resolved: 3 Episodic Residual codes; unclassified (4 sources) Obstructive sleep apnea (adult) (pediatric); Translations: [OBSTRUCTIVE SLEEP APNEA] Onset: 3 Chronic Residual codes; unclassified (4 sources) Sleep apnea; Translations: [Sleep apnea, unspecified] Onset: 3 12-10-2023 Chronic Residual codes; unclassified (8 sources) Obstructive sleep apnea syndrome; Translations: [Obstructive sleep apnea (adult) (pediatric)] Onset: 3 12-07-2023 Chronic Residual codes; unclassified (1 source) Sleep apnea, unspecified; Translations: [Sleep apnea, unspecified] Onset: 4 Chronic Schizophrenia and other psychotic disorders (3 sources) Schizophrenia; Translations: [Schizophrenia, unspecified] Onset: 3 06-09-2023 Chronic Substance-related disorders (1 source) Nicotine dependence, cigarettes, uncomplicated; Translations: [NICOTINE DEPEND CIGARETTES UNCOMP] Onset: 2 Chronic Unclassified (4 sources) Finding of sensation of abdomen; Translations: [Abdominal cramping] Onset: 0 04-23-2020 Unclassified (3 sources) CONTACT W/AND (SUSP) EXPOS COVID-19; Translations: [CONTACT W/AND (SUSP) EXPOS COVID-19] Onset: 2 Unclassified (1 source) OTHER SPECIFIED COUGH; Translations: [OTHER SPECIFIED COUGH] Onset: 2 Unclassified (1 source) Tonsillar hypertrophy [J35.1] Onset: 4 Past or Other Problems Problem Classification Problem Date Documented Da te Episodic/Chronic Acute bronchitis (1 source) Acute bronchitis, unspecified; Translations: [ACUTE BRONCHITIS UNSPECIFIED] Onset: 11-06-2022 Episodic Fever of unknown origin (1 source) Fever, unspecified; Translations: [FEVER UNSPECIFIED] Onset: 11-04-2022 Episodic Headache; including migraine (6 sources) Headache; Translations: [Persistent headaches] Onset: 08-19-2023 08-19-2023 Episodic Malaise and fatigue (6 sources) Asthenia; Translations: [Weakness] Onset: 08-16-2023 08-16-2023 Episodic Mood disorders (3 sources) Mood disorders Onset: 06-09-2023 06-09-2023 Nausea and vomiting (1 source) Nausea; Translations: [NAUSEA] Onset: 11-04-2022 Episodic Other aftercare (1 source) Other long term care social worker (current) drug therapy; Translations: [OTH ALF CURRENT DRUG THERAPY] Onset: 11-06-2022 Episodic Other complications of (3 sources) Vaginal discharge; Translations: [Other specified related conditions, second trimester] Onset: 07-27-2018 Resolved: 01-07-2023 01-07-2023 Episodic Other connective tissue disease (6 sources) Spasm of cervical paraspinous muscle; Translations: [Other muscle spasm] Onset: 04-12-2023 04-12-2023 Episodic Other connective tissue disease (6 sources) Pain in left lower limb; Translations: [Pain in left leg] Onset: 05-30-2023 05-30-2023 Episodic Other connective tissue disease (6 sources) Tendinitis of hip; Translations: [Other specified enthesopathies of left lower limb, excluding foot] Onset: 05-31-2023 05-31-2023 Episodic Other gastrointestinal disorders (4 sources) Chronic constipation; Translations: [Chronic constipation] Onset: 01-16-2013 01-16-2013 Episodic Other lower respiratory disease (3 sources) Shortness of breath; Translations: [SHORTNESS OF BREATH] Onset: 11-05-2022 Episodic Other upper respiratory disease (3 sources) Nasal congestion; Translations: [Nasal congestion] Onset: 05-24-2023 05-24-2023 Episodic Regional enteritis and ulcerative colitis (20 sources) Ulcerative colitis; Translations: [Ulcerative pancolitis] Onset: 07-20-2012 Resolved: 01-07-2023 03-26-2015 Chronic Unclassified (1 source) CONTACT W/AND (SUSP) EXPOS COVID-19; Translations: [CONTACT W/AND (SUSP) EXPOS COVID-19] Onset: 10-28-2022 Results Test Name Value Interpretation Reference Range Facility HCG ( test) Ql (U)o n 01-05-2024 Beta HCG ( test) Ql (U) Negative Normal NEG [facility] Comment on above: Performed By: #### 2 106-3 #### [facility] ([id number]) [facility] [place] [address] Surgical Pathologyon 024 Surgical Pathology Normal [facility] Comment on above: Result Comment: [facility] [address] [place] [address] Surgical Pathology Consultation Patient Name:RIRI ALEJADNRO:1995 (Age: 28)Gender:FTaken:4Reported:01/11/2024hysician(s):Hugo Friedman MD ([phone])Copy To: Rec. #:[id number]: #[id number] Final Pathologic Diagnosis Right and left tonsils (2 H&E): Tonsils, 2, with reactive chronic follicular lymphoid hyperplasia. Report Electronically Signed Out /01/11/2024Chino Soriano MD Interpretation performed at [facility], [address] [place] [address], License number: [id number]. Clinical History tonsillar hypertrophy, sleep apnea, unspecified type, recurrent streptococcal tonsilitis, snoring. Gross Description Received in formalin labeled JAVON, right and left tonsils are bilateral tonsils, 2.1 x 1.8 x 1.2 cm and 2.3 x 1.6 x 1.4 cm. The specimen are sectioned to reveal uniform tonsillar architecture. Mechanical Laboratory Technician sections are submitted in cassettes A-B. (2, ss, [id number], m6) . /01/05/2024O Microscopic Findings Microscopic examination performed. Specimen(s) Received Right and left tonsils Fee Codes(s): 1; 01975 Amphetamine Screen Ql (U)Ord ered By: Jm Bell on 04-29-2023 Amphetamines Ql (U) Negative Negative [facility] Barbiturates [Presence] in U rine by Screen methodOrdered By: Jm Bell on 04-29-2023 Barbiturates Screen Ql (U) Negative Negative [facility] Benzodiazepines Screen Ql (U )Ordered By: Jm Bell on 04-29-2023 Benzodiazepines Ql (U) Negative Negative [facility] Benzoylecgonine [Presence] i n Urine by Screen methodOrdered By: Jm Bell on 04-29-2023 Benzoylecgonine Screen Ql (U) Negative Negative [facility] Cannabinoids [Presence] in U rine by Screen methodOrdered By: Jm Bell on 04-29-2023 Cannabinoids Screen Ql (U) Negative Negative [facility] Comment on above: These are unconfirme d results and should not be used for legal purposes. Drug Cut-Off Concentration: AMPH 1000 ng/mL DOUG 200 ng/mL PAZ 200 ng/mL COCM 300 ng/mL OP 300 ng/mL PCP 25 ng/mL THC 20 ng/mL Drug Screen,Urineon 04-29-20 23 Amphetamine Screen,Urine Negative Normal Negative [facility] Comment on above: Performed By: #### U RDS #### [address] Barbiturate Screen,Urine Negative Normal Negative [facility] Comment on above: Performed By: #### U RDS #### [place] [address] [place] Benzodiazepines Screen,Urine Negative Normal Negative [facility] Comment on above: Performed By: #### U RDS #### [address] Cannabinoid Screen,Urine Negative Normal Negative [facility] Comment on above: Result Comment: Thes e are unconfirmed results and should not be used for legal purposes. Drug Cut-Off Concentration: AMPH 1000 ng/mL DOUG 200 ng/mL PAZ 200 ng/mL COCM 300 ng/mL OP 300 ng/mL PCP 25 ng/mL THC 20 ng/mL PERFORMED BY: [place] [address] PATHOLOGIST COIL REWIND MACHINE OPERATOR BALDEMAR LUNSFORD M.D. Performed By: #### U RDS #### [place] [address] [place] Cocaine Screen,Urine Negative Normal Negative [facility] Comment on above: Performed By: #### U RDS #### [address] Opiate Screen,Urine Negative Normal Negative [facility] Comment on above: Performed By: #### U RDS #### [address] Phencyclidine Screen,Urine Negative Normal Negative [facility] Comment on above: Performed By: #### U RDS #### [address] HCG ( test) IA.rapi d Ql (U)Ordered By: Jm Bell on 04-29-2023 HCG ( test) Ql (U) Negative [facility] HCG,Urineon 04-29-2023 Beta HCG ( test) Ql (U) Negative Normal [facility] Comment on above: Result Comment: PERF ORMED BY: [place] [address] PATHOLOGIST COIL REWIND MACHINE OPERATOR BALDEMAR LUNSFORD M.D. Performed By: #### U HCG #### [address] [place] 04-29-2023 L Specimen: [id number] Received: 04/29/23 Status: MAL Brian Num: [id number] Spec Type: Surgical Subm Dr: Jm Bell MD Tissues: A Colon Biopsy (RANDOM COLON BX) B Colon Biopsy (SIGMOID POLYP) Procedures: HE/4, Gross/Micro L4/2 Age/ Patient Sex Location Account Attending Physician JavonRiri H 27/ [id number] Jm Bell MD SPEC NUM: [id number] RECD: 04/29/23 STATUS: MAL MODI NUM: [id number] SRIRAM: 04/29/23- [facility] DR: Jm Bell MD ENTERED: 04/29/[address]: CHIP TYPE: Surgical DEPT: S ORDERED: HE/4, Gross/Micro L4/2 ORDERED: HE/4, Gross/Micro L4/2 Pathological Diagnosis A. Colon, random, biopsy: - Colonic mucosa, no significant histopathologic changes. B. Colon, sigmoid, polyp, biopsy: - Colonic mucosa with hyperplastic features. Clinical Information Ulcerative colitis, rule out ulcerative colitis Gross Description A. Received in formalin labeled with the patient's name, date of and random colon biopsies are five kate tissues averaging 0.3 cm. Entirely submitted in one cassette labeled A1. B. Received in formalin labeled with the patient's name, date of and sigmoid polyp is one kate tissue measuring 0.3 cm. Entirely submitted in one cassette labeled B1. Microscopic Description A. Two H E slides reviewed. The microscopic examination confirms the diagnosis. B. Two H E slides reviewed. The microscopic examination confirms the diagnosis. Specimen: [id number] Received: 04/29/23 Status: MAL Modi Num: [id number] Spec Type: Surgical Subm Dr: Jm Bell MD Tissues: A Colon Biopsy (RANDOM COLON BX) B Colon Biopsy (SIGMOID POLYP) Procedures: HE/4, Gross/Micro L4/2 Patient: Riri Alejandro [id number] (Continued) Specimen: [id number] Received: 04/29/23 (Continued) Signed (signature on file) Murtaza Erazo MD 05/03/23 1312 Specimen: [id number] Received: 04/29/23 Status: MAL Modi Num: [id number] Spec Type: Surgical Subm Dr: Jm Bell MD Tissues: A Colon Biopsy (RANDOM COLON BX) B Colon Biopsy (SIGMOID POLYP) Procedures: HE/Farhad, Gross/Micro L4/2 Patient: Riri Alejandro [id number] (Continued) Specimen: [id number] Received: 04/29/23 (Continued) CPT Codes 78188 x 2 Specimen: [id number] Received: 04/29/23 Status: MAL Modi Num: [id number] Spec Type: Surgical Subm Dr: Jm Bell MD Tissues: A Colon Biopsy (RANDOM COLON BX) B Colon Biopsy (SIGMOID POLYP) Procedures: HE/4, Gross/Micro L4/2 Patient: Riri Alejandro [id number] (Continued) Signed (signature on file) Murtaza Erazo MD 05/03/23 1312 Normal [facility] Opiates [Presence] in Urine by Screen methodOrdered By: Jm Bell on 04-29-2023 Opiates Screen Ql (U) Negative Negative [facility] Phencyclidine Screen Ql (U)O rdered By: Jm Bell on 04-29-2023 Phencyclidine Ql (U) Negative Negative [facility] CBC with Diffon 02-15-2023 Abs. Basophil 0.06 k/uL Normal 0.00-0.20 [facility] Comment on above: Performed By: #### C P, CDP #### [facility] [address] [place] [address] Surveillance Operator: Jose A Pastor MD Abs.Imm.Granulocyte 0.04 k/uL Normal 0.00-0.30 [facility] Comment on above: Performed By: #### C P, CDP #### [address] [place], [facility] Surveillance Operator: Jose A Pastor MD Abs.Neutrophil (Seg) 9.14 k/uL High 1.50-8.10 [facility] Comment on above: Performed By: #### C P, CDP #### [address] [place], [place] [address] Surveillance Operator: Jose A Pastor MD Basophils/100 WBC (Bld) 1 % Normal 0-2 [facility] Comment on above: Performed By: #### C P, CDP #### [address] [place], [place] [address] Surveillance Operator: Jose A Pastor MD Eosinophils (Bld) [#/Vol] 0.12 10*3/uL Normal 0.00-0.44 [facility] Comment on above: Performed By: #### C P, CDP #### [address] [place], [place] [address] Surveillance Operator: Jose A Pastor MD Eosinophils/100 WBC (Bld) 1 % Normal 1-4 [facility] Comment on above: Performed By: #### C P, CDP #### [address] [place], [facility] Surveillance Operator: Jose A Pastor MD Erythrocyte distribution width (RBC) [Ratio] 15.1 % High 11.8-14.4 [facility] Comment on above: Performed By: #### C P, CDP #### [address] [place], [facility] Surveillance Operator: Jose A Pastor MD Hematocrit (Bld) [Volume fraction] 37.5 % Normal 36.3-47.1 [facility] Comment on above: Performed By: #### C P, CDP #### [facility] [address] [place] [address] Dr. [place], [place] [address] Surveillance Operator: Jose A Pastor MD Hemoglobin (Bld) [Mass/Vol] 12.2 g/dL Normal 11.9-15.1 [facility] Comment on above: Performed By: #### C P, CDP #### [address] [place], [facility] Surveillance Operator: Jose A Pastor MD Immature granulocytes/100 WBC (Bld) 0 % Normal 0 [facility] Comment on above: Performed By: #### C P, CDP #### [address] [place], [facility] Surveillance Operator: Jose A Pastor MD Lymphocytes (Bld) [#/Vol] 2.00 10*3/uL Normal 1.10-3.70 [facility] Comment on above: Performed By: #### C P, CDP #### [address] [place], [facility] Surveillance Operator: Jose A Pastor MD Lymphocytes/100 WBC (Bld) 17 % Low 24-43 [facility] Comment on above: Performed By: #### C P, CDP #### [address] [place], [facility] Surveillance Operator: Jose A Pastor MD MCH (RBC) [Entitic mass] 27.2 pg Normal 25.2-33.5 [facility] Comment on above: Performed By: #### C P, CDP #### [address] [place] [address] Surveillance Operator: Jose A Pastor MD MCHC (RBC) [Mass/Vol] 32.5 g/dL Normal 28.4-34.8 [facility] Comment on above: Performed By: #### C P, CDP #### [facility] [address] [place], [place] [address] Surveillance Operator: Jose A Pastor MD MCV (RBC) [Entitic vol] 83.5 fL Normal 82.6-102.9 [facility] Comment on above: Performed By: #### C P, CDP #### [facility] [address] [place], [place] [address] Surveillance Operator: Jose A Pastor MD Monocytes (Bld) [#/Vol] 0.78 10*3/uL Normal 0.10-1.20 [facility] Comment on above: Performed By: #### C P, CDP #### [address] [place], [place] [address]783 Surveillance Operator: Jose A Pastor MD Monocytes/100 WBC (Bld) 6 % Normal 3-12 [facility] Comment on above: Performed By: #### C P, CDP #### [address] [place], [place] [address] Surveillance Operator: Jose A Pastor MD Neutrophil (Seg) 75 % High 36-65 [facility] Comment on above: Performed By: #### C P, CDP #### [address] [place], [place] [address] Surveillance Operator: Jose A Pastor MD NRBC Automated 0.0 per 100 WBC Normal 0.0 [facility] Comment on above: Performed By: #### C P, CDP #### [facility] [address] [place], [place] [id number] Surveillance Operator: Jose A Pastor MD Platelet mean volume (Bld) [Entitic vol] 9.8 fL Normal 8.1-13.5 [facility] Comment on above: Performed By: #### C P, CDP #### [facility] [address] [place] [address] Surveillance Operator: Jose A Pastor MD Platelets (Bld) [#/Vol] 318 10*3/uL Normal 138-453 [facility] Comment on above: Performed By: #### C P, CDP #### [facility] [address] [place], [place] [address] Surveillance Operator: Jose A Pastor MD RBC (Bld) [#/Vol] 4.49 10*6/uL Normal 3.95-5.11 [facility] Comment on above: Performed By: #### C P, CDP #### [facility] [address] [place], [place] [address] Surveillance Operator: Jose A Pastor MD WBC (Bld) [#/Vol] 12.1 10*3/uL High 3.5-11.3 [facility] Comment on above: Performed By: #### C P, CDP #### [facility] [address] [place], [place] [address] Surveillance Operator: Jose A Pastor MD CT SOFT TISSUE NECK W CONTRA Yonatan 02-15-2023 CT SOFT TISSUE NECK W CONTRAST EXAMINATION: CT OF THE NECK SOFT TISSUE WITH CONTRAST 02/15/2023 TECHNIQUE: CT of the neck was performed with the administration of intravenous contrast. Multiplanar reformatted images are provided for review. Automated exposure control, iterative reconstruction, and/or weight based adjustment of the mA/kV was utilized to reduce the radiation dose to as low as reasonably achievable. COMPARISON: None. HISTORY: ORDERING SYSTEM PROVIDED HISTORY: difficulty swallowing TECHNOLOGIST PROVIDED HISTORY: difficulty swallowing Decision Support Exception - unselect if not a suspected or confirmed emergency medical condition->Emergency Medical Condition (MA) FINDINGS: The lung apices are clear. The thyroid gland enhances homogeneously. No retropharyngeal free fluid is identified. The major salivary glands are symmetric in size and enhancement and visualized portions of the tongue are normal. Prominence of the adenoids is likely due to lymphoid hypertrophy. There is enlargement of both palatine tonsils, with striated enhancement patterns consistent with tonsillitis. No peritonsillar abscess (MECHANICAL UNIT REPAIRER) is identified. The hypopharynx, larynx, and upper esophagus are within normal limits. The major vessels of the neck enhance symmetrically. There is mild bilateral cervical lymphadenopathy with right level IIa lymph nodes measuring up to 16 mm in short axis, likely reactive. No acute osseous abnormality is visualized. IMPRESSION: Bilateral tonsillitis, without evidence of MECHANICAL UNIT REPAIRER at this time. Mild bilateral cervical lymphadenopathy, likely reactive. RECOMMENDATIONS: Unavailable Interpreted by: Manny Jaimes MD Signed by: Manny Jaimes MD 02/15/23 Final result Normal [facility] Comp Metabolic Profon 2022 Albumin [Mass/Vol] 4.1 g/dL Normal 3.5-5.2 [facility] Comment on above: Performed By: #### C P, CDP #### [facility] [address] [place] [address] Surveillance Operator: Jose A Pastor MD Albumin/Glob Ratio 1.1 Normal 1.0-2.5 [facility] Comment on above: Performed By: #### C P, CDP #### [facility] [address] [place], [place] [phone] Surveillance Operator: oJse A Pastor MD Alkaline Phos 45 U/L Normal 35-104 [facility] Comment on above: Performed By: #### C P, CDP #### [address] [place], [place] [address] Surveillance Operator: Jose A Pastor MD ALT [Catalytic activity/Vol] 10 U/L Normal 5-33 [facility] Comment on above: Performed By: #### C P, CDP #### [facility] [address] [place], [place] [address]83 Surveillance Operator: Jose A Pastor MD Anion gap [Moles/Vol] 11 mmol/L Normal 9-17 [facility] Comment on above: Performed By: #### C P, CDP #### [facility] [address] [place] [address] Surveillance Operator: Jose A Pastor MD AST [Catalytic activity/Vol] 11 U/L Normal <32 [facility] Comment on above: Performed By: #### C P, CDP #### [facility] [address] [place], [place] [address] Surveillance Operator: Jose A Pastor MD Bilirubin [Mass/Vol] 0.4 mg/dL Normal 0.3-1.2 [facility] Comment on above: Performed By: #### C P, CDP #### [facility] [address] [place], [place] [address] Surveillance Operator: Jose A Pastor MD BUN/CRE Ratio 23 High 9-20 [facility] Comment on above: Performed By: #### C P, CDP #### [facility] [address] [place], [place] [address]483 Surveillance Operator: Jose A Pastor MD Calcium [Mass/Vol] 9.6 mg/dL Normal 8.6-10.4 [facility] Comment on above: Performed By: #### C P, CDP #### [facility] [address] [place] [address] Dr[address] [place], [place] [address] Surveillance Operator: Jose A Pastor MD Chloride [Moles/Vol] 102 mmol/L Normal 98-107 [facility] Comment on above: Performed By: #### C P, CDP #### [facility] [address] [place] [address] Dr[place], [place] [address] Surveillance Operator: Jose A Pastor MD CO2 [Moles/Vol] 26 mmol/L Normal 20-31 [facility] Comment on above: Performed By: #### C P, CDP #### [facility] [address] [place], [place] [address]83 Surveillance Operator: Jose A Pastor MD Creatinine [Mass/Vol] 0.73 mg/dL Normal 0.50-0.90 [facility] Comment on above: Performed By: #### C P, CDP #### [facility] [address] [place], [place] [address] Surveillance Operator: Jose A Pastor MD GFR/1.73 sq M.predicted among non-blacks MDRD (S/P/Bld) [Vol rate/Area] mL/min/{1.73_m2} Normal >60 [facility] Comment on above: Result Comment: These results are not intended for use in patients <18 years of age. eGFR results are calculated without a race factor using the 2020 CKD-EPI equation. Careful clinical correlation is recommended, particularly when comparing to results calculated using previous equations. The CKD-EPI equation is less accurate in patients with extremes of muscle mass, extra-renal metabolism of creatine, excessive creatine ingestion, or following therapy that affects renal tubular secretion. Performed By: #### C P, CDP #### [facility] [address] [place] [address] [place] [address] Surveillance Operator: Jose A Pastor MD Glucose [Mass/Vol] 83 mg/dL Normal 70-99 [facility] Comment on above: Performed By: #### C P, CDP #### [address] [place] [address] Surveillance Operator: Jose A Pastor MD Potassium [Moles/Vol] 4.0 mmol/L Normal 3.7-5.3 [facility] Comment on above: Performed By: #### C P, CDP #### [address] [place] [address] Surveillance Operator: Jose A Pastor MD Protein [Mass/Vol] 7.7 g/dL Normal 6.4-8.3 [facility] Comment on above: Performed By: #### C P, CDP #### [facility] [address] [place] [address] [place] [address] Surveillance Operator: Jose A Pastor MD Sodium [Moles/Vol] 139 mmol/L Normal 135-144 [facility] Comment on above: Performed By: #### C P, CDP #### [address] [place] [address] Surveillance Operator: Jose A Pastor MD Urea nitrogen [Mass/Vol] 17 mg/dL Normal 6-20 [facility] Comment on above: Performed By: #### C P, CDP #### [facility] [address] [place], [place] [address] Surveillance Operator: Jose A Pastor MD Strep Gr A Direct Agon 02-15 Strep Gr A Direct Ag Positive Abnormal NEG [facility] Comment on above: Result Comment: for Group A Streptococci Performed By: #### R GPA #### [facility] [address] [place], [place] [phone] Surveillance Operator: Jose A Pastor MD Source .THROAT SWAB Normal [facility] Comment on above: Performed By: #### R GPA #### [facility] [address] [place], [place] [address] Surveillance Operator: Jose A Pastor MD CBC AUTO DIFFon 01-30-2023 BASO # 0.1 103/ul Normal 0.0-0.1 [facility] Comment on above: Performed By: #### C BC #### [facility] [address] [address] [address] Arpan Clark Basophils/100 WBC (Bld) 0.4 % Normal 0.2-2.0 [facility] Comment on above: Performed By: #### C BC #### [facility] [address] [address] [address] Arpan Clark EO # 0.1 103/ul Normal 0.0-0.7 [facility] Comment on above: Performed By: #### C BC #### [facility] [address] [address] [address] Arpan Clark Eosinophils/100 WBC (Bld) 0.7 % Critically low 0.9-7.0 [facility] Comment on above: Performed By: #### C BC #### [facility] [address] [address] [address] Arpan Clark Erythrocyte distribution width (RBC) [Ratio] 15.2 % Critically high 11.0-15.0 [facility] Comment on above: Performed By: #### C BC #### [facility] [address] [place] [address] [address] Arpan Clark Hematocrit (Bld) [Volume fraction] 41.1 % Normal 36.0-48.0 [facility] Comment on above: Performed By: #### C BC #### [facility] [address] [place] [address] Dr. Arpan Clark Hemoglobin (Bld) [Mass/Vol] 13.4 g/dL Normal 12.0-16.0 [facility] Comment on above: Performed By: #### C BC #### [facility] [address] [place] [address] Dr. Arpan Clark IG # 0.05 10e3/ul Critically high 0.00-0.03 [facility] Comment on above: Performed By: #### C BC #### [facility] [address] [place] [address] Dr. Arpan Clark IG % 0.4 % Normal 0.0-0.5 [facility] Comment on above: Performed By: #### C BC #### [facility] [address] [place] [address] Dr. Arpan Clark LYMPH # 1.6 103/ul Normal 1.2-3.8 [facility] Comment on above: Performed By: #### C BC #### [facility] [address] [place] [address] Dr. Arpan Clark Lymphocytes/100 WBC (Bld) 12.0 % Critically low 20.5-60.0 [facility] Comment on above: Performed By: #### C BC #### [facility] [address] [place] [address] Dr. Arpan Clark MANUAL DIFF REQ NO Normal [facility] Comment on above: Performed By: #### C BC #### [facility] [address] [place] [address] Dr. Arpan Clark MCH (RBC) [Entitic mass] 27.2 pg Normal 26.7-34.0 [facility] Comment on above: Performed By: #### C BC #### [facility] [address] [address] [address] Arpan Clark MCHC (RBC) [Mass/Vol] 32.6 g/dL Normal 29.9-35.2 [facility] Comment on above: Performed By: #### C BC #### [facility] [address] [address] [address] Arpan Clark MCV (RBC) [Entitic vol] 83.5 fL Normal 81.0-99.0 [facility] Comment on above: Performed By: #### C BC #### [facility] [address] [address] [address] Arpan Clark MONO # 1.3 103/ul Critically high 0.3-0.8 [facility] Comment on above: Performed By: #### C BC #### [facility] [address] [place] [address] Dr. Arpan Clark Monocytes/100 WBC (Bld) 9.5 % Normal 1.7-12.0 [facility] Comment on above: Performed By: #### C BC #### [facility] [address] [address] [address] Arpan Clark NEUT # 10.2 103/ul Critically high 1.4-6.5 [facility] Comment on above: Performed By: #### C BC #### [facility] [facility] [address] [address] [address] Arpan Clark Neutrophils/100 WBC (Bld) 77.0 % Critically high 43.0-75.0 [facility] Comment on above: Performed By: #### C BC #### [facility] [address] [address] [address] Arpan Clark Platelet mean volume (Bld) [Entitic vol] 9.1 fL Critically low 9.5-13.5 [facility] Comment on above: Performed By: #### C BC #### [facility] [address] [address] [address] Arpan Clark PLT 288 103/ul Normal 150-450 [facility] Comment on above: Performed By: #### C BC #### [facility] [address] [place] [address] Dr. Arpan Clark RBC 4.92 106/ul Normal 4.20-5.40 [facility] Comment on above: Performed By: #### C BC #### [facility] [address] [place] [address] Dr. Arpan Clark WBC 13.2 103/ul Critically high 4.0-11.0 [facility] Comment on above: Performed By: #### C BC #### [facility] [address] [place] [address] Dr. Arpan Clark CULTURE BLOODon 01-30-2023 Microscopic examination of blood, culture Culture Observations: NO GROWTH AT 5 DAYS. Normal [facility] Comment on above: Performed By: #### B [id number] #### [facility] [address] [place] [address] Dr. Arpan Clark Microscopic examination of blood, culture Culture Observations: NO GROWTH AT 5 DAYS. Normal [facility] Comment on above: Performed By: #### B LDCX1 #### [facility] [address] [place] [address] Dr. Arpan Clark LACTATE/LACTIC ACIDon 2022 Lactate [Moles/Vol] 1.3 mmol/L Normal 0.4-2.0 [facility] Comment on above: Performed By: #### L ACT #### [facility] [address] [place] [address] Dr. Arpan Clark MONOon 01-30-2023 Monocytes (Bld) [#/Vol] Negative Normal NEGATIVE [facility] Comment on above: Performed By: #### M ELADIO #### [facility] [address] [place] [address] Dr. Arpan Clark PROF 14(COMP METB)on 023 Albumin [Mass/Vol] 4.0 g/dL Normal 3.4-5.0 [facility] Comment on above: Performed By: #### C MP #### [facility] [address] [place] [address] Dr. Arpan Clark Albumin/Globulin [Mass ratio] 0.8 {ratio} Normal [facility] Comment on above: Performed By: #### C MP #### [facility] [address] [address] [address] Arpan Clark ALP [Catalytic activity/Vol] 70 U/L Normal 46-116 [facility] Comment on above: Performed By: #### C MP #### [facility] [address] [address] [address] Arpan Clark ALT [Catalytic activity/Vol] 16 U/L Normal 14-59 [facility] Comment on above: Performed By: #### C MP #### [facility] [address] [address] [address] Arpan Clark Anion gap [Moles/Vol] 14.8 mmol/L Normal [facility] Comment on above: Performed By: #### C MP #### [facility] [address] [place] [address] Dr. Arpan Clark AST [Catalytic activity/Vol] 14 U/L Critically low 15-37 [facility] Comment on above: Performed By: #### C MP #### [facility] [address] [address] [address] Arpan Clark Bilirubin [Mass/Vol] 0.5 mg/dL Normal 0.2-1.0 [facility] Comment on above: Performed By: #### C MP #### [facility] [address] [place] [address] Dr. Arpan Clark Calcium [Mass/Vol] 9.3 mg/dL Normal 8.5-10.1 [facility] Comment on above: Performed By: #### C MP #### [facility] [address] [address] [address] Arpan Clark Chloride [Moles/Vol] 100 mmol/L Normal 98-107 [facility] Comment on above: Performed By: #### C MP #### [facility] [address] [address] [address] Arpan Clark CO2 [Moles/Vol] 23.8 mmol/L Normal 21.0-32.0 [facility] Comment on above: Performed By: #### C MP #### [facility] [address] [address] [address] Arpan Clark Creatinine [Mass/Vol] 0.88 mg/dL Normal 0.55-1.02 [facility] Comment on above: Performed By: #### C MP #### [facility] [address] [address] [address] Arpan Clark EGFR-AF IRAQI >60 Normal >=60 [facility] Comment on above: Performed By: #### C MP #### [facility] [address] [address] [address] Arpan Clark EGFR-NON AF IRAQI >60 Normal >=60 [facility] Comment on above: Performed By: #### C MP #### [facility] [address] [place] [address] Dr. Arpan Clark Globulin (S) [Mass/Vol] 4.8 g/dL Normal [facility] Comment on above: Performed By: #### C MP #### [facility] [address] [place] [address] Dr. Arpan Clark Glucose [Mass/Vol] 98 mg/dL Normal 74-106 [facility] Comment on above: Performed By: #### C MP #### [facility] [address] [place] [address] Dr. Arpan Clark Potassium [Moles/Vol] 3.6 mmol/L Normal 3.5-5.1 [facility] Comment on above: Performed By: #### C MP #### [facility] [address] [place] [address] Dr. Arpan Clark Protein [Mass/Vol] 8.8 g/dL Critically high 6.4-8.2 [facility] Comment on above: Performed By: #### C MP #### [facility] [address] [place] [address] Dr. Arpan Clark Sodium [Moles/Vol] 135 mmol/L Critically low 136-145 [facility] Comment on above: Performed By: #### C MP #### [facility] [address] [place] [address] Dr. Arpan Clark Urea nitrogen [Mass/Vol] 21.0 mg/dL Critically high 7.0-18.0 [facility] Comment on above: Performed By: #### C MP #### [facility] [address] [address] [address] Arpan Clark Urea nitrogen/Creatinine [Mass ratio] 23.9 mg/mg Normal [facility] Comment on above: Performed By: #### C MP #### [facility] [address] [address] [address] Arpan Clark STREPT SCREENon 01-30-2023 STREP SCREEN A Positive Abnormal NEGATIVE [facility] Comment on above: Performed By: #### S SCRN #### [facility] [address] [address] [address] Arpan Clark XR CHEST 2 Von 11-05-2022 XR CHEST 2 V EXAM: XR CHEST 2 V HISTORY: SHORTNESS OF BREATH COMPARISON: 12/06/2020 TECHNIQUE: Upright PA and lateral chest x-ray FINDINGS: The heart is not enlarged and the vasculature is not distended. No acute infiltrate, effusion or pneumothorax is identified. The osseous structures are grossly intact. IMPRESSION: No acute infiltrate or evidence of cardiac decompensation. The overall appearance of the chest has not changed significantly. Electronically authenticated by: BRI GREER Date: 2022-11-05 14:15 Normal [facility] Covid-19 PCR (CVDTB)on 10-09 SARS-CoV-2 (COVID-19) RNA MAG+probe Ql (Unsp spec) Not detected Normal NOT DETECTED [facility] Comment on above: Result Comment: This test is not yet approved or cleared by the [place] FDA. When there are no FDA-approved or cleared tests available, and other criteria are met, FDA can make tests available under an emergency access mechanism called an Emergency Use Authorization (EUA). The EUA for this test is supported by the Spray Rig Operator of Health and Human Service's (HHS's) declaration that circumstances exist to justify the emergency use of in vitro diagnostics for the detection and/or diagnosis of the virus that causes COVID-19. This EUA will remain in effect (meaning this test can be used) for the duration of the COVID-19 declaration justifying emergency of IVDs, unless it is terminated or revoked by FDA (after which the test may no longer be used). When diagnostic testing is negative, the possibility of a false negative should be considered in the context of a patient's recent exposures and the presence of clinical signs and symptoms consistent with SARS-CoV-2. Performed By: #### C VDTBH #### [facility] [address] [address] [address] Arpan Clark INFLUENZA A AND B AGon 10-28 INFLUENZA A AG Negative Normal NEGATIVE SEE COMMENT [facility] Comment on above: Performed By: #### I NFLUAB #### [facility] [address] [address] [address] Arpan Clark INFLUENZA B AG Negative Normal NEGATIVE SEE COMMENT [facility] Comment on above: Performed By: #### I NFLUAB #### [facility] [address] [address] [address] Arpan Clark INTERNAL CONTROLS Within Normal Limits Normal Wi thin Normal Limits [facility] Comment on above: Performed By: #### I NFLUAB #### [facility] [address] [address] [address] Arpan Clark CBCon 05-28-2020 Erythrocyte distribution width (RBC) [Ratio] 19.3 % High 11.8 - 14.4 % [place] Hematocrit (Bld) [Volume fraction] 30.4 % Low 36.3 - 47.1 % [place] Hemoglobin (Bld) [Mass/Vol] 9.2 g/dL Low 11.9 - 15.1 g/dL [place] Interpretation and review of laboratory results Abnormal [place] MCH (RBC) [Entitic mass] 22.6 pg Low 25.2 - 33.5 pg [place] MCHC (RBC) [Mass/Vol] 30.3 g/dL 28.4 - 34.8 g/dL [place] MCV (RBC) [Entitic vol] 74.7 fL Low 82.6 - 102.9 fL [place] Platelet mean volume (Bld) [Entitic vol] 10.1 fL 8.1 - 13.5 fL [place] Platelets (Bld) [#/Vol] 283 10*3/uL [place] RBC (Bld) [#/Vol] 4.07 10*6/uL 3.95 - 5.1 1 m/uL [place] WBC (Bld) [#/Vol] 0.0 10*3/uL 0.0 per 10 0 WBC [place] WBC (Bld) [#/Vol] 13.1 10*3/uL High [place] Chlamydia trachomatis DNA, U rineon 05-28-2020 C. trachomatis DNA ,Urine Negative NEGATIVE [place] Comment on above: CHLAMYDIA TRACHOMATI S DNA not detected by nucleic acid amplification. This test is intended for medical purposes only and is not valid for the evaluation of suspected sexual abuse or for other forensic purposes. In certain contexts, culture may be required to meet applicable laws and regulations for diagnosis of C. trachomatis and N. gonorrhoeae infections. Per 2014 CDC recommendations, this test does not include confirmation of positive results by an alternative nucleic acid target. Specimen Description .URINE [place], [place] CBC auto differentialon 05-09 Basophils (Bld) [#/Vol] 0.03 10*3/uL [place] Basophils/100 WBC (Bld) 0 % 0 - 2 % [place] Differential Type NOT REPORTED [place] Eosinophils (Bld) [#/Vol] 0.31 10*3/uL [place] Eosinophils/100 WBC (Bld) 3 % 1 - 4 % [place] Erythrocyte distribution width (RBC) [Ratio] 19.0 % High 11.8 - 14.4 % [place] Hematocrit (Bld) [Volume fraction] 32.8 % Low 36.3 - 47.1 % [place] Hemoglobin (Bld) [Mass/Vol] 9.8 g/dL Low 11.9 - 15.1 g/dL [place] Immature granulocytes (Bld) [#/Vol] 0.07 10*3/uL [place] Immature granulocytes (Bld) [#/Vol] 1 % High 0 [place] Interpretation and review of laboratory results Abnormal [place] Lymphocytes (Bld) [#/Vol] 1.62 10*3/uL [place] Lymphocytes/100 WBC (Bld) 17 % Low 24 - 43 % [place] MCH (RBC) [Entitic mass] 22.5 pg Low 25.2 - 33.5 pg [place] MCHC (RBC) [Mass/Vol] 29.9 g/dL 28.4 - 34.8 g/dL [place] MCV (RBC) [Entitic vol] 75.2 fL Low 82.6 - 102.9 fL [place] Monocytes (Bld) [#/Vol] 0.75 10*3/uL [place] Monocytes/100 WBC (Bld) 8 % 3 - 12 % [place] Platelet mean volume (Bld) [Entitic vol] 9.9 fL 8.1 - 13.5 fL [place] Platelets (Bld) [#/Vol] NOT REPORTED [place] Platelets (Bld) [#/Vol] 324 10*3/uL [place] RBC (Bld) [#/Vol] 4.36 10*6/uL 3.95 - 5.1 1 m/uL [place] RBC morphology finding Nom (Bld) NOT REPORTED [place] Segmented neutrophils/100 WBC (Bld) 71 % High 36 - 65 % [place] Segs Absolute 6.79 [place] WBC (Bld) [#/Vol] 0.0 10*3/uL 0.0 per 10 0 WBC [place] WBC (Bld) [#/Vol] 9.6 10*3/uL [place] WBC Morphology NOT REPORTED [place] DRUG SCREEN MULTI URINEon Amphetamine Screen, Ur Negative NEGATIVE [place] Barbiturate Screen, Ur Negative NEGATIVE [place] Benzodiazepine Screen, Urine Negative NEGATIVE [place] Buprenorphine Urine Negative NEGATIVE [place] Cannabinoid Scrn, Ur Negative NEGATIVE [facility], [place] Cocaine Metabolite, Urine Negative NEGATIVE [facility], [place] MDMA, Urine NOT REPORTED NEGATIVE [place] Methadone Screen, Urine Negative NEGATIVE [facility] Methamphetamine, Urine Negative NEGATIVE [place] Opiates, Urine Negative NEGATIVE [place] Oxycodone Screen, Ur Negative NEGATIVE [place] Phencyclidine, Urine Negative NEGATIVE [place] Propoxyphene, Urine Negative NEGATIVE [place] Test Information NOT REPORTED [place] Tricyclic Antidepressants, Urine Negative NEGATIVE [place] Comment on above: Drug screen results are to be used for medical purposes only. All positive results are unconfirmed. Testing for employment or legal uses should be sent to a reference laboratory for confirmation. GBS, External Resulton 04-30 GBS, External Result Negative [place] Comment on above: confirmed with Ion bird RN Urinalysison 04-23-2020 Bilirubin Urine Negative NE[facility]IVE [facility] [place] Color, UA YELLOW YELLOW [place] Glucose, Ur Negative NEGATIVE [place] Interpretation and review of laboratory results Abnormal [place] Ketones Ql (U) Negative NEGATIVE [place] Leukocyte esterase Test strip Ql (U) Negative NEGATIVE [place] Nitrite, Urine Negative NEGATIVE [place] pH, UA 6.0 [place] Protein (U) [Mass/Vol] Negative NEGATIVE [place] Specific [place], UA >1.030 High [place] Turbidity UA CLEAR CLEAR [place] Urinalysis Comments NOT REPORTED [place] Urine Hgb Negative NEGATIVE [place] Urobilinogen, Urine Normal Normal [place] ABO, External Resulton 10-26 ABO, External Result A [place] Comment on above: confirmed with Ion bird RN C. Trachomatis, External Res ulton 10-26-2019 C. Trachomatis, External Result Positive [place] Comment on above: confirmed with Ion bird RN HIV, External Resulton 10-26 HIV, External Result NON-REACTIVE [facility], [place] Comment on above: confirmed with Ion bird RN Hepatitis B, External Result on 10-26-2019 Hep B, External Result NON-REACTIVE [place] Comment on above: confirmed with Ion bird RN N. Gonorrhoeae, External Res ulton 10-26-2019 N. Gonorrhoeae, External Result Negative [place] Comment on above: confirmed with Ion bird RN RPR, External Labon 10-26-20 19 RPR, External Result NON-REACTIVE Me [facility], [place] Comment on above: confirmed with Ion bird RN Rh Factor, External Resulton 10-26-2019 Rh Factor, External Result Positive [place] Comment on above: confirmed with Ion bird RN Rubella Titer, External Resu lton 10-26-2019 Rubella Titer, External Result IMMUNE [place] Comment on above: confirmed with Ion bird RN Progress Noteon 01-12-2018 HIM IP Note OR Shirt Finisher Normal [facility] Vital Signs Date Time Vital Sign Value Performing Clinician Facility 12-29-2023 11:49-0500 Body height 160 cm [facility] 12-29-2023 11:49-0500 Body mass index (BMI) [Ratio] 38.97 kg/m2 [facility] 12-29-2023 11:49-0500 Body weight 99.79 kg [facility] [address] [place] [address] 12-22-2023 14:45-0500 Body mass index (BMI) [Ratio] 39.15 kg/m2 Myriam Flormeli [facility] Work Phone: [facility] 12-22-2023 14:45-0500 Body weight 100.25 kg Myriam Cory [facility] Work Phone: [facility] 12-22-2023 14:45-0500 Diastolic blood pressure 80 mm[Hg] Myriam Cory [facility] Work Phone: [facility] 02-14-2024 14:45-0500 Systolic blood pressure 120 mm[Hg] Myriam Ray JOHNNaeem Work Phone: [facility] 12-07-2023 11:22-0500 Body height 160 cm Naomie Thrasher MD Work Phone: [facility] 12-07-2023 11:22-0500 Body mass index (BMI) [Ratio] 36.67 kg/m2 Naomie Thrasher MD Work Phone: [facility] 12-07-2023 11:22-0500 Body weight 93.89 kg Naomie Thrasher MD Work Phone: [facility] 12-07-2023 11:22-0500 Diastolic blood pressure 79 mm[Hg] Naomie Thrasher MD Work Phone: [facility] 12-07-2023 11:22-0500 Heart rate 75 /min Naomie Thrasher MD Work Phone: [facility] 12-07-2023 11:22-0500 Systolic blood pressure 137 mm[Hg] Naomie Thrasher MD Work Phone: [facility] 07-29-2023 15:15-0400 Body height 160.66 cm Jm Bell Other [place] Other 07-29-2023 15:15-0400 Body mass index (BMI) [Ratio] 37.78 kg/m2 Jm Bell Other [place] Other 07-29-2023 15:15-0400 Body weight 97.52 kg Jm Bell Other [place] Other 07-29-2023 15:15-0400 Diastolic blood pressure 76 mm[Hg] Jm Bell Other [place] Other 07-29-2023 15:15-0400 Systolic blood pressure 110 mm[Hg] Jm Bell Other [place] Other 04-29-2023 14:13-0400 Diastolic blood pressure 91 mm[Hg] BRANCH MANAGER-C Maegan Lara Work Phone: [facility] 04-29-2023 14:13-0400 Heart rate 75 /min BRANCH MANAGER-C Maegan Lara Work Phone: [facility] 04-29-2023 14:13-0400 Respiratory rate 16 /min BRANCH MANAGER-C Maegan Lara Work Phone: [facility] 04-29-2023 14:13-0400 SaO2% (BldA) [Mass fraction] 99 % BRANCH MANAGER-C Maeagn Lara Work Phone: [facility] 04-29-2023 14:13-0400 Systolic blood pressure 125 mm[Hg] BRANCH MANAGER-C Maegan Lara Work Phone: [facility] 04-29-2023 12:23-0400 Body height 160.02 cm BRANCH MANAGER-C Maegan Lara Work Phone: [facility] 04-29-2023 12:23-0400 Body temperature 99.2 [degF] BRANCH MANAGER-C Maegan Lara Work Phone: [facility] 04-29-2023 12:23-0400 Body weight 90.71 kg BRANCH MANAGER-C Maegan Lara Work Phone: [facility] 02-09-2023 14:15-0400 Body height 160.66 cm Jm Bell Other [place] Other 02-09-2023 14:15-0400 Body mass index (BMI) [Ratio] 33.39 kg/m2 Jm Bell Other [place] Other 02-09-2023 14:15-0400 Body weight 86.18 kg Jm Bell Other [place] Other 02-09-2023 14:15-0400 Diastolic blood pressure 101 mm[Hg] Jm Bell Other [place] Other 02-09-2023 14:15-0400 Systolic blood pressure 144 mm[Hg] Jm Bell Other [place] Other 12-30-2021 15:30-0500 Body height 160.66 cm Jm Bell Other [place] Other 12-30-2021 15:30-0500 Body mass index (BMI) [Ratio] 35.85 kg/m2 Jm Bell Other [place] Other 12-30-2021 15:30-0500 Body weight 92.53 kg Jm Bell Other [place] Other 05-29-2020 07:10-0400 Body Temperature 98.2 [degF] Myriam [facility] 05-29-2020 07:10-0400 BP Diastolic 55 mm[Hg] [facility] [place] 05-29-2020 07:10-0400 BP Systolic 105 mm[Hg] [facility] [place] 05-29-2020 07:10-0400 Pulse (Heart Rate) 70 /min [facility] [place] 05-29-2020 07:10-0400 Respiratory Rate 16 /min [facility] [place] [facility] [place] 05-28-2020 00:11-0400 Pulse Oximetry 99 % [facility] [place] 05-27-2020 08:23-0400 BMI (Body Mass Index) 36.67 kg/m2 [facility] [place] 05-27-2020 08:23-0400 Body weight 93.89 kg [facility] [place] 05-27-2020 08:23-0400 Height 160 cm Myriam Ray [facility] , [place] 05-22-2020 15:33-0400 Body Temperature 98.01 [degF] [facility] [place] 05-22-2020 15:33-0400 BP Diastolic 73 mm[Hg] Felecia [facility] , [place] 05-22-2020 15:33-0400 BP Systolic 118 mm[Hg] Felecia [facility] , [place] 05-22-2020 15:33-0400 Pulse (Heart Rate) 111 /min Felecia [facility] 05-22-2020 15:33-0400 Respiratory Rate 16 /min [facility] [place] 04-23-2020 21:26-0400 BMI (Body Mass Index) 33.66 kg/m2 Felecia Carpenter [facility], [place] 04-23-2020 21:26-0400 Body weight 86.18 kg Felecia Carpenter [facility] , [place] 04-23-2020 21:26-0400 Height 160 cm Felecia Carpenter [facility] , [place] 04-23-2020 20:56-0400 Body Temperature 98.2 [degF] Felecia Carpenter [facility], [place] 04-23-2020 20:56-0400 BP Diastolic 68 mm[Hg] Felecia Carpenter [facility] , [place] 04-23-2020 20:56-0400 BP Systolic 120 mm[Hg] Felecia Carpenter [facility] , [place] 04-23-2020 20:56-0400 Pulse (Heart Rate) 90 /min Feleciadayanna Carpenter [facility], [place] 04-23-2020 20:56-0400 Respiratory Rate 18 /min Felecia Carpenter [facility], [place] 08-23-2019 10:15-0400 BP Diastolic 71 mm[Hg] Raman Barnard [facility] , [place] 08-23-2019 10:15-0400 BP Systolic 105 mm[Hg] Raman Barnard [facility] , [place] 08-23-2019 10:15-0400 Pulse (Heart Rate) 74 /min Raman Barnard [facility], [place] 08-23-2019 10:15-0400 Pulse Oximetry 98 % Raman Barnard [facility] , [place] 08-23-2019 10:15-0400 Respiratory Rate 16 /min [facility] [place] 08-23-2019 09:55-0400 Body Temperature 97.11 [degF] Raman [facility], [place] 08-23-2019 08:50-0400 BMI (Body Mass Index) 28.37 kg/m2 Raman Barnard [facility], [place] 08-23-2019 08:50-0400 Body weight 74.39 kg Raman Barnard [facility] , [place] 08-23-2019 08:50-0400 Height 161.9 cm Raman Barnard [facility] , [place] Encounters Encounter Date Encounter Type Care Provider Facility Start: 01-05-2024 End: 01-05-2024 Evaluation and management of inpatient [facility] Start: 01-05-2024 End: 01-05-2024 [facility] Start: 01-02-2024 Telephone encounter Hugo Friedman MD Work Phone: [facility] Start: 12-29-2023 End: 12-29-2023 Admission to [facility] Phone Call Provider 1 [facility] On [facility] Start: 12-29-2023 End: 12-29-2023 Evaluation and management of inpatient [facility] Start: 12-22-2023 End: 12-23-2023 ambulatory MYRIAM L FLORO Not Available Start: 12-22-2023 End: 12-22-2023 Office outpatient visit 15 minutes Myriam L Floro CNM Work Phone: [facility] Comment on above: Folliculitis (Primar y Dx) Start: 12-22-2023 Bamboo flowsheet Myriam L Wilmer ro CNM Work Phone: [facility] Start: 12-22-2023 Bamboo flowsheet Myriam L Wilmer ro CNM Work Phone: [facility] Start: 12-21-2023 Telephone encounter Myriam Ray CNM Work Phone: [facility] Start: 12-10-2023 Telephone encounter [facility] Comment on above: Surgical Or Dental C learance Start: 12-07-2023 End: 12-07-2023 ambulatory NAOMIE THRASHER Not Available Start: 12-07-2023 End: 12-07-2023 Office outpatient visit 25 minutes Naomie Thrasher MD Work Phone: [facility] Comment on above: JENSEN (obstructive sle ep apnea) (Primary Dx); Migraine without aura, intractable, without status migrainosus (CMS/HCC); 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) Start: 10-06-2023 End: 10-06-2023 ambulatory BRIAN [facility] Not Available Start: 10-05-2023 End: 10-05-2023 ambulatory NAOMIE THRASHER Not Available Start: 09-28-2023 End: 09-28-2023 ambulatory JAEL ALVARADO Not Available Start: 09-23-2023 End: 09-23-2023 ambulatory BRIAN [facility] Not Available Start: 07-29-2023 End: 07-29-2023 ambulatory Jm Bell Other [place] Other Start: 07-29-2023 Office outpatient vi sit 15 minutes Jm Bell [facility] Start: 04-29-2023 End: 04-29-2023 ambulatory Maegan Lara Facility:[facility] Start: 04-29-2023 End: 04-29-2023 Admission to same day surgery center BRANCH MANAGER-C Maegan Lara Work Phone: [facility] Work Phone: Start: 04-29-2023 End: 04-29-2023 ambulatory BRANCH MANAGER-C Maegan Lara Work Phone: [facility] Work Phone: Start: 03-17-2023 End: 03-18-2023 ambulatory MAEGANFARHAD GONGMER Facility:[facility] Start: 03-04-2023 Telephone encounter Jm pfeiffer [facility] Start: 03-04-2023 End: 03-05-2023 ambulatory MAEGAN LARA [facility] [employer] Other Start: 02-22-2023 End: 02-22-2023 ambulatory Jm Bell Other [facility] Other Start: 02-22-2023 Telephone encounter Jm pfeiffer [facility] Start: 02-18-2023 End: 02-18-2023 ambulatory Jm Bell Other [facility] Other Start: 02-18-2023 Telephone encounter Jm pfeiffer [facility] Start: 02-15-2023 [facility] Start: 02-09-2023 End: 02-09-2023 ambulatory Jm Bell Other [facility] Other Start: 02-09-2023 Office outpatient vi sit 15 minutes Jm Bell [facility] Start: 01-30-2023 End: 01-30-2023 ambulatory MAEGAN GONGMER Facility:[facility] Start: 11-05-2022 End: 11-05-2022 ambulatory MAEGAN LARA Facility:[facility] Start: 10-28-2022 End: 10-28-2022 ambulatory MAEGANFARHAD GONGMER Facility:[facility] Start: 10-27-2022 End: 10-27-2022 ambulatory Jm Bell Other [facility] Other Start: 10-27-2022 Telephone encounter Jm pfeiffer [facility] Start: 04-08-2022 End: 04-08-2022 ambulatory Jm Bell Other [facility] Other Start: 04-08-2022 Telephone encounter Jm pfeiffer [facility] Start: 02-06-2022 End: 02-06-2022 ambulatory Jm Bell Other [facility] Other Start: 02-06-2022 Telephone encounter Jm Shin [facility] Start: 12-30-2021 End: 12-30-2021 ambulatory Jm Bell Other [facility] Other Start: 12-30-2021 Office outpatient vi sit 25 minutes Jm Bell [facility] Start: 05-27-2020 End: 05-29-2020 Evaluation and management of inpatient Myriam Ray Work Phone: [facility] Start: 05-22-2020 End: 05-22-2020 Subsequent hospital visit by physician Felecia Paige Work Phone: [facility] Start: 04-23-2020 End: 04-23-2020 Subsequent hospital visit by physician Felecia Carpenter Work Phone: [facility] Start: 08-23-2019 End: 08-23-2019 Subsequent hospital visit by physician Raman Barnard Work Phone: [facility] Procedures Date Procedure Procedure Detail Performing Clinician Start: 06-09-2023 Adult depression scr eening assessment Angy Recinos RN Start: 04-29-2023 Colonoscopy BRANCH MANAGER-C Buddy Lara Work Phone: Start: 05-28-2020 Blood count complete automated Myriam Ray Work Phone: Start: 05-27-2020 Drug screen class list a Myriam Ray Work Phone: Start: 05-27-2020 Iadna chlamydia trachomatis amplified probe tq Myriam Ray Work Phone: Start: 05-27-2020 Blood count complete auto&auto difrntl wbc Myriam Ray Work Phone: Start: 04-30-2020 GBS, EXTERNAL RESULT Hi storical Provider Start: 04-23-2020 Urnls dip stick/tabl et rgnt auto w/o microscopy Felecia Carpenter Work Phone: Start: 10-26-2019 ABO, EXTERNAL RESULT Hi storical Provider Start: 10-26-2019 C. TRACHOMATIS, EXTE RNAL RESULT Historical Provider Start: 10-26-2019 HEPATITIS B, EXTERNA L RESULT Historical Provider Start: 10-26-2019 HIV, EXTERNAL RESULT Hi storical Provider Start: 10-26-2019 N. GONORRHOEAE, EXTE RNAL RESULT Historical Provider Start: 10-26-2019 RH FACTOR, EXTERNAL RESULT Historical Provider Start: 10-26-2019 RPR, EXTERNAL RESULT Hi storical Provider Start: 10-26-2019 RUBELLA TITER, EXTER NAL RESULT Historical Provider Plan of Treatment Date Care Activity Detail Author Start: 08-23-2029 Screening for malign ant neoplasm of colon Colon cancer screen colonoscopy [place], [place] Start: 08-18-2027 Colon cancer screen colonoscopy Colon cancer screen colonoscopy [place] Start: 05-20-2027 DTaP,Tdap and Td Vaccines (7 - Td or Tdap) DTaP,Tdap and Td Vaccines (7 - Td or Tdap) [facility] Start: 05-20-2027 DTaP/Tdap/Td vaccine (7 - Td) DTaP/Tdap/Td vaccine (7 - Td) [place] Start: 01-05-2025 Adult BMI Screening Adult BMI Screen ing [facility] Start: 01-05-2025 Tobacco Screening Tobacco Screening [facility] Start: 12-29-2024 Adult BMI Screening Adult BMI Screen ing [facility] Start: 12-29-2024 Tobacco Screening Tobacco Screening [facility] Start: 08-12-2024 Tobacco Screening Tobacco Screening [facility] Start: 08-11-2024 Adult BMI Screening Adult BMI Screen ing [facility] Start: 06-09-2024 Depression Screening Depression Scre ening [facility] Start: 03-07-2024 End: 03-07-2024 Patient encounter procedure 03/07/2024 10:00 AM EDT Office Visit [facility] [address] [facility] [address] [place] [address] Naomie Thrasher MD [address] [place] [address] [facility] Start: 02-01-2024 End: 02-01-2024 Patient encounter procedure 02/01/2024 9:45 AM EDT Office Visit [facility] [address] [place] [address], [place] [address] [place] [address] [place] [address] [place] [address] [facility] Start: 01-05-2024 End: 01-05-2024 Adenoidectomy primary age 14/> ADENOIDECTOMY Tonsillar hypertrophy Sleep apnea, unspecified type Recurrent streptococcal tonsillitis Snoring 01/05/2024 7:30 AM EST [facility] Start: 01-05-2024 End: 01-05-2024 Admission to same day surgery center 01/05/2024 7:30 AM EST - 01/05/2024 8:45 AM EST Surgery [facility] [address] [place] [phone] [place] [address] [place] [id number] TONSILLECTOMY [44599 (CPT )] [facility] Comment on above: TONSILLECTOMY [24171 (CPT )] Start: 01-05-2024 Subsequent hospital visit by physician 01/05/2024 7:30 AM EST Hospital Encounter [address] [phone] Hugo Friedman MD [address] [facility] [place] [address] [facility] Start: 01-05-2024 End: 01-05-2024 Tonsillectomy primary/secondary age 14/> TONSILLECTOMY Tonsillar hypertrophy Sleep apnea, unspecified type Recurrent streptococcal tonsillitis Snoring 01/05/2024 7:30 AM EST [facility] Start: 12-29-2023 End: 12-29-2023 Admission to establishment 12/29/2023 3:15 PM EST Support Visit [facility] [address] [place], [place] [address] [address] [facility] Start: 07-09-2023 Influenza vaccination Influenza Vacc ine [facility] Start: 04-29-2023 [facility] Start: 05-27-2021 Screening for Chlamy robbie trachomatis Chlamydia screen [place] Start: 07-23-2020 End: 07-23-2020 Office Visit 07/23/2020 Office Visit Gastroenterology aRman Barnard MD [address] [place] [address] [place] [address] [phone] [facility] Part of [facility] Start: 07-09-2020 Influenza vaccination [place], [place] Start: 01-16-2020 End: 01-16-2020 Office Visit 01/16/2020 Office Visit Gastroenterology Raman Barnard MD [address] [place] [address] [place] [address] [facility] Start: 07-09-2019 Influenza vaccination Flu vaccine (# 1) [place] Start: 05-19-2019 Chlamydia screen Chlamydia screen [place], [place] Start: 05-19-2019 Screening for Chlamy robbie trachomatis Chlamydia screen [place] Start: 2018 Cervical cancer screen Cervical canc er screen [place] Start: 2018 Screening for malign ant neoplasm of cervix [facility] Start: 2016 DTaP/Tdap/Td vaccine (1 - Tdap) DTaP/Tdap/Td vaccine (1 - Tdap) [place] Start: 2015 Adult BMI Follow Up Plan Adult BMI Follow Up Plan [facility] Start: 2012 HPV vaccine (1 - Fem armais 3-dose series) HPV vaccine (1 - Female 3-dose series) [place] Start: 2010 Varicella Vaccine (1 of 2 - 13+ 2-dose series) Varicella Vaccine (1 of 2 - 13+ 2-dose series) [place] Start: 2008 HPV vaccine (1 - 2-d ose series) HPV vaccine (1 - 2-dose series) [place] Start: 2003 Pneumococcal 0-64 ye ars Vaccine (1 of 3 - PCV13) Pneumococcal 0-64 years Vaccine (1 of 3 - PCV13) [place] Start: 2001 Varicella vaccine (2 of 2 - 2-dose childhood series) Varicella vaccine (2 of 2 - 2-dose childhood series) [place] End: 04-23-2020 Bacteria identified Cx Nom (U) Urine culture Microbiology Routine One Time for 1 Occurrences starting 04/23/2020 until 04/23/2020 [place] Comment on above: One Time for 1 Occur rences starting 04/23/2020 until 04/23/2020 Bacteria identified Cx Nom (U) Urine culture Microbiology [employer] Label Print 04/23/2020 8:50 PM EDT [place] nonstress test nonst ress test OB Routine Daily until discontinued starting 04/24/2020 [place] Comment on above: Daily until disconti nued starting 04/24/2020 Nonrebreather mask oxygen Nonrebreather mask oxygen Respiratory Care Routine As directed - RT (PRN) until discontinued starting 04/23/2020 [place] Comment on above: As directed - RT (TX N) until discontinued starting 04/23/2020 Patient Education Colon polyps [facility] Work Phone: End: 08-23-2019 , Urine , Urine Lab STAT One Time for 1 Occurrences starting 08/23/2019 until 08/23/2019 [place] Comment on above: One Time for 1 Occur rences starting 08/23/2019 until 08/23/2019 Surgical Pathology Surgical Path ology Lab Routine ONE TIME for 1 Occurrences starting 08/23/2019 [place] Comment on above: ONE TIME for 1 Occur rences starting 08/23/2019 End: 04-23-2020 SVE SVE Point of Care Testing Routine One Time for 1 Occurrences starting 04/23/2020 until 04/23/2020 [place] Comment on above: One Time for 1 Occur rences starting 04/23/2020 until 04/23/2020 Immunizations Immunization Date Immunization Notes Care Provider Angel vasquez 11-15-2020 influenza, injectabl e, quadrivalent, preservative free Angy Recinos RN [facility] 11-15-2020 influenza virus vacc ine, unspecified formulation Angy Recinos RN [facility] 09-13-2019 influenza, injectabl e, quadrivalent, contains preservative Angy Recinos RN [facility] 09-05-2018 influenza, injectabl e, quadrivalent, contains preservative Angy Recinos RN [facility] 09-02-2017 influenza, injectabl e, quadrivalent, contains preservative Angy Recinos RN [facility] 05-20-2017 tetanus toxoid, redu lc diphtheria toxoid, and acellular pertussis vaccine, adsorbed Angy Recinos RN [facility] 09-09-2016 influenza, injectabl e, quadrivalent, preservative free Angy Recinos RN [facility] 09-02-2015 tuberculin skin test ; purified protein derivative solution, intradermal Raman Barnard [place] 08-06-2015 influenza, seasonal, injectable, preservative free Angy Recinos RN [facility] 08-21-2014 influenza, seasonal, injectable, preservative free Angy Recinos RN [facility] 09-12-2013 influenza, seasonal, injectable, preservative free Angy Recinos RN [facility] 09-15-2012 influenza, seasonal, injectable, preservative free Angy Recinos RN [facility] 09-18-2011 influenza virus vacc ine, whole virus Angy Recinos RN [facility] 08-18-2010 influenza virus vacc ine, whole virus Angy Recinos RN [facility] 06-27-2010 hepatitis B vaccine, pediatric or pediatric/adolescent dosage Angy Recinos RN [facility] 06-27-2010 tetanus toxoid, redu lc diphtheria toxoid, and acellular pertussis vaccine, adsorbed Angy Recinos RN [facility] 02-28-2003 diphtheria, tetanus toxoids and acellular pertussis vaccine, unspecified formulation Angy Recinos RN [facility] 02-28-2003 measles, mumps and rubella virus vaccine Angy Recinos RN [facility] 02-28-2003 poliovirus vaccine, inactivated Angy Recinos RN [facility] 01-20-1999 diphtheria, tetanus toxoids and acellular pertussis vaccine, unspecified formulation Angy Recinos RN [facility] 01-20-1999 haemophilus influenz ae type b vaccine, HbOC conjugate Angy Recinos RN [facility] 12-16-1998 measles, mumps and rubella virus vaccine Angy Recinos RN [facility] 12-16-1998 varicella virus vaccine Angy Recinos RN [facility] 05-16-1998 diphtheria, tetanus toxoids and acellular pertussis vaccine, unspecified formulation Angy Recinos RN [facility] 05-16-1998 haemophilus influenz ae type b vaccine, conjugate unspecified formulation Angy Recinos RN [facility] 05-16-1998 trivalent poliovirus vaccine, live, oral Angy Recinos RN [facility] 03-14-1998 hepatitis B vaccine, pediatric or pediatric/adolescent dosage Angy Recinos RN [facility] 02-05-1998 diphtheria, tetanus toxoids and acellular pertussis vaccine, unspecified formulation Angy Recinos RN [facility] 02-05-1998 haemophilus influenz ae type b vaccine, conjugate unspecified formulation Angy Recinos [facility] 02-05-1998 poliovirus vaccine, inactivated Angy Recinos RN [facility] 1997 hepatitis B vaccine, pediatric or pediatric/adolescent dosage Angy Recinos [facility] Payers Date Payer Category Payer Self-pay 2022 Medicaid [id number] 2022 Medicaid [id number] 2019 Unknown BCBS BCBS OUT OF STATE [id number] 2019-Present [address] [place] [address] [id number] .[id number] 2019 Unknown [id number] .[id number] 2019 Unknown BCBS BCBS OUT OF STATE xxxxxxxxxxxxxx 2019-Present [address] [place] [address] xxxxxxxxxxxxxx [id number] .[id number] 2019 Unknown BCBS BCBS OUT OF STATE [id number] 2019-Present [address] [place] [address] [id number] .[id number] 2015 Unknown BCBS BC[place] - [place] P PO xxxxxxxxxxxx 2015-Present [address] [place] [address] xxxxxxxxxxxx [id number] .[id number] 1997 Unknown [id number] 2.16.840.1.312447.3.579.2.173 1997 Unknown [id number] 2.16.840.1.615768.3.579.2.593 1997 Unknown [id number] 2.16.840.1.894215.3.579.2.593 1997 Unknown [id number] 2.16.840.1.748207.3.579.2.593 1997 Unknown [id number] 2.16.840.1.744380.3.579.2.593 1997 Unknown [id number] 2.16.840.1.180884.3.579.2.593 1997 Unknown [id number] 2.16.840.1.120090.3.579.2.125 9 1997 Unknown [id number] 2.16.840.1.040617.3.579.2.125 9 1997 Unknown [id number] 2.16.840.1.276671.3.579.2.125 9 1997 Unknown [id number] 2.16.840.1.584105.3.579.2.125 9 1997 Unknown [id number] 2.16.840.1.694871.3.579.2.125 9 1997 Unknown [id number] 2.16.840.1.656177.3.579.2.125 9 1997 Unknown [id number] 2.16.840.1.551570.3.579.2.128 6 1997 Unknown [id number] 2.16.840.1.381489.3.579.2.128 6 1997 Unknown [id number] 2.16.840.1.147685.3.579.2.128 6 1997 Unknown [id number] 2.16.840.1.937711.3.579.2.128 6 1959 Unknown [id number] 2.16.840.1.009454.19 1959 Unknown [id number] Unknown [facility] [id number] Unknown [id number] Social History Date Type Detail Facility Start: 08-23-2019 End: 12-16-2015 Tobacco smoking status VAIS Current some day smoker [place] Start: 08-23-2019 End: 12-19-2020 Alcohol intake No [facility] Start: 01-10-2019 Tobacco Comment a pack lasts a month or 2 [place] Start: 1997 Sex Assigned At Not on file M [place] Start: 04-23-2020 End: 07-15-2023 Tobacco smoking status NHIS Former smoker [facility] End: 09-08-2019 History of tobacco use Current smoker [place] Start: 04-23-2020 End: 05-28-2020 Alcohol intake Current non-drinker of alcohol (finding) [place] Start: 09-10-2019 Estefany [place] Exposure to SARS-CoV -2 (event) Unable to assess [place] Start: 05-28-2020 End: 07-15-2023 Tobacco use and exposure Never used [place] Exposure to SARS-CoV -2 (event) Not sure [place] Start: 1997 Sex Assigned At Female F [facility] End: 11-08-2018 History of tobacco use Cigarette Smoker [facility] Start: 08-12-2023 End: 12-29-2023 Alcohol intake Current drinker of alcohol (finding) [facility] Start: 12-19-2020 End: 08-12-2023 History of Social function [facility] Adolescent depressio n screening assessment 14 [facility] Start: 06-14-2023 Tobacco Comment Quit age 18-19 -smoked 1-2 years, 1 pack lasted 3 months [facility] Start: 07-15-[address] [facility] Start: 06-03-2023 End: 12-22-2023 Tobacco smoking status NHIS Never smoked tobacco [facility] Start: 06-03-2023 Alcohol Comment Less than lynette hly. caffeine: more than 4 cups per day [facility] Start: 01-20-2023 Gender identity Identifies as female gender (finding) [facility] Goals Date Patient Goal Desired Activity /State Clinical Notes 12-30-2021 to 01-02-2024 Telephone Encounter - Hugo Friedman MD - 01/02/2024 10:54 AM ESTTelephone Encounter - Hugo Friedman MD - 01/02/2024 10:54 AM Jerome Ray CNM - 12/22/2023 2:30 PM EST Note Date & Type Note Facility 01-02-2024 Miscellaneous Notes Post op pain meds documented in this encounter [facility] 01-02-2024 Telephone encounter Note Post op pain meds [facility] 12-29-2023 Instructions Formatting of th is note might be different from the original. Your surgery/procedure is scheduled at [facility] on January 05 at 730 Arrival Time 530 [facility] Address: [address] [place], [place] [id number] Park in P1 Parking lot located on [facility]. Report to the Entrance B. Check in at the information desk the surgery. The waiting room located on the second floor. If you have any questions prior to surgery, please call Pre-Admission Clinic at [phone] between 7:30 am and 4:30 pm Wednesday through Wednesday. If you have questions the morning of surgery, please call the Pre-op Department at [phone]. Notify your SURGEON if you develop any illness such as a cold, cough, fever, sore throat, vomiting or are hospitalized between now and your surgery. CONTINUE TO TAKE YOUR MEDICATIONS PRESCRIBED. DO NOT STOP YOUR PRESCRIBED MEDICATIONS UNLESS DIRECTED BY YOUR PRESCRIBING PHYSICIAN Take the following medications the morning of surgery with a sip of water: no meds Take inhalers as prescribed the morning of surgery. . Blood thinners: Medications such as Coumadin, Heparin, Aspirin, Plavix, Eliquis, Pradaxa) Please contact your physician regarding a stop/hold date for these medications. Diabetics: If you take insulin, contact your prescribing doctor for instructions on how to manage this the night before and the morning of surgery. Non-steriodal Anti-Inflammatory Drugs (NSAIDS)- Stop 3 days prior to surgery unless otherwise directed by your surgeon. Vitamins/Herbal Products: You may continue to take your prescribed vitamins such as potassium, iron, vitamin B, vitamin C, or multivitamin unless specifically instructed by your surgeon to stop. STOP taking all herbal products/teas one week prior to your surgery. Marijuana: Stop marijuana 72 hours prior to surgery, stop CBD oil 48 hours prior to surgery. If you have been given bowel prep instructions by your surgeon, please call the surgeon's office with any questions about these instructions. What do I do the day of Surgery? Age 2 through adult - Stop all solids by midnight, You may have clear liquids up to 2 hours before surgery, unless otherwise instructed by your surgeon. Clear liquids are: water, sports drinks such as Gatorade or G2, or apple juice. You may NOT have: tube feedings, dairy products, alcoholic beverages, orange juice, or any liquids with solids or pulp in it. If applicable, shower again with CHG soap the morning of your surgery. If you received a green plastic bracelet, bring it with you the day of surgery and your nurse will put it on you. In order to help prevent infection post-operatively, you may be asked to use a CHG mouthwash when you arrive to the Pre-op area. Your nurse will provide instruction the morning of. What do I need to do to prepare for surgery? If you will be going home the same day as your surgery, arrange for an adult over [address] Riding in a bus or taxi by yourself is not permitted. You should not smoke or drink alcohol 24 hours before your surgery. Alcohol thins the blood and may cause bleeding problems during surgery. Smoking increases the risk of breathing problems after surgery. If you have been assigned CARLOS Education by your surgeon's office, please complete this education prior to your surgery. For questions regarding CARLOS education, reach out to your surgeon's office. If you have been given a prescription for occupational, physical or speech therapy, please set up these appointments before your procedure. If you would like to schedule therapy at a [facility] facility, please call [phone] ([phone]). Do not use lotions, creams, powders, perfume, make up, cologne or after-shaves day of surgery. Remove ALL jewelry including wedding rings, body piercings,hair extensions that contain metal, nail fijian, make-up, and contact lens. You may brush your teeth the morning of surgery, but do not swallow the water. Wear your dentures and partial plates to the hospital (no adhesive). Shower the night the before, and morning of with an antibacterial soap such as Dial. What should I bring to the hospital? If you received a green plastic bracelet, bring it with you the day of surgery and your nurse will put it on you. Eyeglass or contact lens case If you will be spending the night, please bring personal care items and leave them in the car until you are taken to your room after surgery. Leave ALL valuables at home. If any of these instructions conflict with those you received from the surgeon, please seek clarification from your surgeon's office. DEEP BREATHING EXERCISES This exercise helps promote good air exchange and helps to prevent pneumonia after surgery. Breathe in slowly and deeply through the nose. Hold your breath for a few seconds and then exhale slowly through the mouth. Repeat this three times and then cough.Coughing helps to clear your lungs. If you have had a surgery with an incision into your abdomen or chest, press gently against your incision with a pillow or a folded blanket when you cough. Please be aware - it may not be pink to cough following some types of surgeries involving the eyes, ears, sinuses and throat. Always follow your doctor's instructions. LEG EXERCISE These exercises help promote good circulation and help to prevent blood clots after surgery. Point your toes to the ceiling and then point them to the wall. Do this slowly about 15-20 times. You may also move your feet in circles. Do the exercise that is most comfortable for you. If you have had surgery involving your shoulder or arm, we recommend you move your fingers. PRACTICING We ask that you begin practicing these exercises before your surgery. After surgery try to do both exercises at least every 2 hours during the day and early evening. SURGICAL SITE INFECTION PREVENTION What is a Surgical Site Infection? Infection can happen to the area of the body where surgery is done. This is called a surgical site infection (SSI). A SSI does not happen very often. Can SSIs be treated? Antibiotics are used to treat SSI. Some patients may need another surgery to treat the infection. The doctor will discuss treatment options with you. What are some of the things that hospitals are doing to prevent SSIs? Soap and water or alcohol hand rub are used before and after caring for each patient. Special soap is used to clean surgery workers hands and arms just before the surgery. Masks, gowns, gloves and hair covers are worn during the surgery to keep the area clean. Hair in the surgery area may be removed with clippers (not razors). A special soap that kills germs is used to clean the skin at the surgery site. Antibiotics may be given before the surgery starts. What can you do to prevent SSIs? Before surgery: You may be asked to shower or bathe with a special soap that kills germs the night before and the day of surgery. Use the soap as you were told. If you smoke, stop or cut down. Ask your doctor about ways to quit. Do not shave near where you will have surgery. Shaving can irritate the skin and make it easier to get and infection. After surgery: Be sure that the doctors and nurses clean their hands before and after touching you. Be sure your family and friends clean their hands before and after visiting you. Do not be afraid to remind them. * Care for your wound at home as told by your doctor or nurse * Call your doctor right away if you have fever, redness, increased pain, or drainage at the surgery site. Further questions? Contact the doctor, nurse or the Infection Prevention and Control department if you have any questions. PATIENT RIGHTS AND RESPONSIBILITIES As a patient at [facility], you have the right to: Receive medical care and be informed of who is taking care of you Be treated with dignity and respect Have a family member/regional sales representative of choice and your physician notified of your admission Receive information and actively participate in decisions about your care and treatment Refuse care, treatment and services Decide who may provide your support and speak for you Access baptist and spiritual services Participate in ethical issues and questions about your care Receive private and confidential care Have appropriate assessment and management of your pain Know guest visitation restrictions or limitations Have an advance directive Access protective services Consent or refuse to participate in research studies or production or recordings, films or other images Have resolution of your complaints Receive information of hospital charges and payment methods Patient/patient regional sales representative responsibilities are to: Provide information about health status to facilitate care, treatment and services Follow the treatment, plan, keep appointments and speak up when you do not understand the plan Respect the rights of other patients and healthcare personnel Follow organizational rules and regulations that support quality care and a safe environment Fulfill financial obligations as promptly as possible [facility] 12-29-2023 Miscellaneous Notes Patient states had a phone interview with Dr Garcia, and medications pre op and post op for day of surgery on 01/05/2024. Your surgery/procedure is scheduled at [facility] on January 05 at 730 Arrival Time [facility] Address: [address] [place] [address]. [place], [place] [address] Park in [address] Parking lot located on [facility]. Report to the Entrance B. Check in at the information desk the surgery. The waiting room located on the second floor. If you have any questions prior to surgery, please call Pre-Admission Clinic at [phone] between 7:30 am and 4:30 pm Wednesday through Wednesday. If you have questions the morning of surgery, please call the Pre-op Department at [phone]. Notify your SURGEON if you develop any illness such as a cold, cough, fever, sore throat, vomiting or are hospitalized between now and your surgery. CONTINUE TO TAKE YOUR MEDICATIONS PRESCRIBED. DO NOT STOP YOUR PRESCRIBED MEDICATIONS UNLESS DIRECTED BY YOUR PRESCRIBING PHYSICIAN Take the following medications the morning of surgery with a sip of water: no meds Take inhalers as prescribed the morning of surgery. . Blood thinners: Medications such as Coumadin, Heparin, Aspirin, Plavix, Eliquis, Pradaxa) Please contact your physician regarding a stop/hold date for these medications. Diabetics: If you take insulin, contact your prescribing doctor for instructions on how to manage this the night before and the morning of surgery. Non-steriodal Anti-Inflammatory Drugs (NSAIDS)- Stop 3 days prior to surgery unless otherwise directed by your surgeon. Vitamins/Herbal Products: You may continue to take your prescribed vitamins such as potassium, iron, vitamin B, vitamin C, or multivitamin unless specifically instructed by your surgeon to stop. STOP taking all herbal products/teas one week prior to your surgery. Marijuana: Stop marijuana 72 hours prior to surgery, stop CBD oil 48 hours prior to surgery. If you have been given bowel prep instructions by your surgeon, please call the surgeon's office with any questions about these instructions. What do I do the day of Surgery? Age 2 through adult - Stop all solids by midnight, You may have clear liquids up to 2 hours before surgery, unless otherwise instructed by your surgeon. Clear liquids are: water, sports drinks such as Gatorade or G2, or apple juice. You may NOT have: tube feedings, dairy products, alcoholic beverages, orange juice, or any liquids with solids or pulp in it. If applicable, shower again with CHG soap the morning of your surgery. If you received a green plastic bracelet, bring it with you the day of surgery and your nurse will put it on you. In order to help prevent infection post-operatively, you may be asked to use a CHG mouthwash when you arrive to the Pre-op area. Your nurse will provide instruction the morning of. What do I need to do to prepare for surgery? If you will be going home the same day as your surgery, arrange for an adult over [address] Riding in a bus or taxi by yourself is not permitted. You should not smoke or drink alcohol 24 hours before your surgery. Alcohol thins the blood and may cause bleeding problems during surgery. Smoking increases the risk of breathing problems after surgery. If you have been assigned CARLOS Education by your surgeon's office, please complete this education prior to your surgery. For questions regarding CARLOS education, reach out to your surgeon's office. If you have been given a prescription for occupational, physical or speech therapy, please set up these appointments before your procedure. If you would like to schedule therapy at a [facility] facility, please call [phone] ([phone]). Do not use lotions, creams, powders, perfume, make up, cologne or after-shaves day of surgery. Remove ALL jewelry including wedding rings, body piercings,hair extensions that contain metal, nail fijian, make-up, and contact lens. You may brush your teeth the morning of surgery, but do not swallow the water. Wear your dentures and partial plates to the hospital (no adhesive). Shower the night the before, and morning of with an antibacterial soap such as Dial. What should I bring to the hospital? If you received a green plastic bracelet, bring it with you the day of surgery and your nurse will put it on you. Eyeglass or contact lens case If you will be spending the night, please bring personal care items and leave them in the car until you are taken to your room after surgery. Leave ALL valuables at home. If any of these instructions conflict with those you received from the surgeon, please seek clarification from your surgeon's office. DEEP BREATHING EXERCISES This exercise helps promote good air exchange and helps to prevent pneumonia after surgery. Breathe in slowly and deeply through the nose. Hold your breath for a few seconds and then exhale slowly through the mouth. Repeat this three times and then cough.Coughing helps to clear your lungs. If you have had a surgery with an incision into your abdomen or chest, press gently against your incision with a pillow or a folded blanket when you cough. Please be aware - it may not be pink to cough following some types of surgeries involving the eyes, ears, sinuses and throat. Always follow your doctor's instructions. LEG EXERCISE These exercises help promote good circulation and help to prevent blood clots after surgery. Point your toes to the ceiling and then point them to the wall. Do this slowly about 15-20 times. You may also move your feet in circles. Do the exercise that is most comfortable for you. If you have had surgery involving your shoulder or arm, we recommend you move your fingers. PRACTICING We ask that you begin practicing these exercises before your surgery. After surgery try to do both exercises at least every 2 hours during the day and early evening. SURGICAL SITE INFECTION PREVENTION What is a Surgical Site Infection? Infection can happen to the area of the body where surgery is done. This is called a surgical site infection (SSI). A SSI does not happen very often. Can SSIs be treated? Antibiotics are used to treat SSI. Some patients may need another surgery to treat the infection. The doctor will discuss treatment options with you. What are some of the things that hospitals are doing to prevent SSIs? Soap and water or alcohol hand rub are used before and after caring for each patient. Special soap is used to clean surgery workers hands and arms just before the surgery. Masks, gowns, gloves and hair covers are worn during the surgery to keep the area clean. Hair in the surgery area may be removed with clippers (not razors). A special soap that kills germs is used to clean the skin at the surgery site. Antibiotics may be given before the surgery starts. What can you do to prevent SSIs? Before surgery: You may be asked to shower or bathe with a special soap that kills germs the night before and the day of surgery. Use the soap as you were told. If you smoke, stop or cut down. Ask your doctor about ways to quit. Do not shave near where you will have surgery. Shaving can irritate the skin and make it easier to get and infection. After surgery: Be sure that the doctors and nurses clean their hands before and after touching you. Be sure your family and friends clean their hands before and after visiting you. Do not be afraid to remind them. * Care for your wound at home as told by your doctor or nurse * Call your doctor right away if you have fever, redness, increased pain, or drainage at the surgery site. Further questions? Contact the doctor, nurse or the Infection Prevention and Control department if you have any questions. PATIENT RIGHTS AND RESPONSIBILITIES As a patient at [facility], you have the right to: Receive medical care and be informed of who is taking care of you Be treated with dignity and respect Have a family member/regional sales representative of choice and your physician notified of your admission Receive information and actively participate in decisions about your care and treatment Refuse care, treatment and services Decide who may provide your support and speak for you Access baptist and spiritual services Participate in ethical issues and questions about your care Receive private and confidential care Have appropriate assessment and management of your pain Know guest visitation restrictions or limitations Have an advance directive Access protective services Consent or refuse to participate in research studies or production or recordings, films or other images Have resolution of your complaints Receive information of hospital charges and payment methods Patient/patient regional sales representative responsibilities are to: Provide information about health status to facilitate care, treatment and services Follow the treatment, plan, keep appointments and speak up when you do not understand the plan Respect the rights of other patients and healthcare personnel Follow organizational rules and regulations that support quality care and a safe environment Fulfill financial obligations as promptly as possible documented in this encounter [facility] 12-29-2023 Nurse Note Patient states had a phone interview with Dr Garcia, and medications pre op and post op for day of surgery on 01/05/2024. [facility] 12-22-2023 History of Presen t illness Narrative Images from the original note were not included. PROBLEM VISIT Riri Alejandro is 28 y.o. a established patient. Here for No chief complaint on file. . Last pap: 01/18/23 Last mammogram: No LMP recorded. Patient has had an implant. History: Past Medical History: Diagnosis Date ADHD (attention deficit hyperactivity disorder) ([facility]) Asthma ([facility]) high schoool History of being hospitalized childbirth x1 06/24, ICU for strep throat 01/2023 Ulcerative colitis ([facility]) 2008 Past Surgical History: Procedure Laterality Date [place] MEDICATION MANAGEMENT Procedure:medications;Disease:ul cerative colitis Family History Problem Relation Name Age of Onset No Known Problems Father Diabetes Maternal Grandmother @SOCX@ Allergies: No Known Allergies Medications: Current Outpatient Medications on File Prior to Visit Medication Sig Dispense Refill clonazePAM (KlonoPIN) 0.5 MG tablet 1/2 tab twice daily 30 tablet 3 erenumab (Aimovig) 140 MG/ML injection Inject 1 mL (140 mg) under the skin every 28 (twenty-eight) days 1 each 5 Humira 40 MG/0.4ML Prefilled Syringe Kit prefilled syringe Inject 40 mg under the skin every 14 (fourteen) days. Spiriva Respimat 1.25 MCG/ACT inhaler Inhale 2 puffs in the morning. SUMAtriptan (Imitrex) 100 MG tablet 1 prn migraine. May repeat once in 2 hrs. Max 2/MEJIAS 4/wk 9 tablet 3 Symbicort 160-4.5 MCG/ACT inhaler Inhale 2 puffs in the morning and 2 puffs in the evening. tiZANidine (Zanaflex) 4 MG tablet 1 po up to TID 90 tablet 3 Ventolin HFA 108 (90 Base) MCG/ACT inhaler Inhale 1 puff every 4 (four) hours. No current facility-administered medications on file prior to visit. There were no vitals filed for this visit. No chief complaint on file. NURSE : HPI: ROS: Review of Systems Physical exam: Physical Exam Chest: Comments: Area is reddened, tender to touch, warm. Appears to have a head to it that is pus filled. Unable to express it due to the tenderness. Assessment and Plan: There are no diagnoses linked to this encounter. Folliculitis RX antibiotic sent to pharmacy advised patient to use warm compress 2-3x a day, and keep the area clean, good handwashing PVU I will see her in 2 weeks if no better No follow-ups on file. There are no Patient Instructions on file for this visit. Basia Vizcaino MA,12/22/2023 2:50 PM documented in this encounter [facility] 12-21-2023 Telephone encounter Note Gume left a VM asking what her diagnosis was from [facility] ..Her other Dr is asking and she did not remember .. Please call (can leave a message) and let her know what that is . Ty [phone] Looks like she was here last February [facility] 12-21-2023 Miscellaneous Notes Gume left a VM asking what her diagnosis was from [facility] ..Her other Dr is asking and she did not remember .. Please call (can leave a message) and let her know what that is . Ty [phone] Looks like she was here last February documented in this encounter [facility] 12-10-2023 Miscellaneous Notes Received fax that patient is scheduled for T and A on 01/[address] [facility] w/ Dr. Jain Per Dr Sotelo office note: For her T+A, She will require DDAVP prior to surgery and then lysteda 1300 mg po q8 hours for 14 days. She should have her T+A at [facility]. Clearance faxed to ENT office and scanned into media. Spoke with patient. Reviewed plan for T and A in detail. Reviewed DDAVP, fluid restriction for 24 hours, post op lysteda. Reviewed to call if any trouble getting lysteda from pharmacy. Script sent to pharmacy documented in this encounter [facility] 12-10-2023 Telephone encounter Note Received fax that patient is scheduled for T and A on 01/[address] [facility] w/ Dr. Jain Per Dr Sotelo office note: For her T+A, She will require DDAVP prior to surgery and then lysteda 1300 mg po q8 hours for 14 days. She should have her T+A at [facility]. Clearance faxed to ENT office and scanned into media. Spoke with patient. Reviewed plan for T and A in detail. Reviewed DDAVP, fluid restriction for 24 hours, post op lysteda. Reviewed to call if any trouble getting lysteda from pharmacy. Script sent to pharmacy [facility] 12-07-2023 History of Presen t illness Narrative Associated Problem(s): Cervical paraspinal muscle spasm Incr home PT!!! as prev demonstrated to pt. Associated Problem(s): Migraine without aura, intractable, without status migrainosus (CMS/HCC) Change ere to 140. Encouraged pt to take 2nd robert if MEJIAS is persisting. Associated Problem(s): JENSEN (obstructive sleep apnea) From prev - [[[ Recommend proceeding with T&A & UPPP. 2 mo after surgery, split-night study, split for AHI>=5. BiPAP due to exhalation difficulty. Then restart BiPAP, probably with alprazolam premed. ]]] Images from the original note were not included. Outpatient Progress Note Prev Appt: 10/05/2023 Chief Complaint Patient presents with Migraine Assessment and Plan - JENSEN (obstructive sleep apnea) From prev - [[[ Recommend proceeding with T&A & UPPP. 2 mo after surgery, split-night study, split for AHI>=5. BiPAP due to exhalation difficulty. Then restart BiPAP, probably with alprazolam premed. ]]] Migraine without aura, intractable, without status migrainosus (CMS/HCC) Change ere to 140. Encouraged pt to take 2nd robert if MEJIAS is persisting. Cervical paraspinal muscle spasm Incr home PT!!! as prev demonstrated to pt. No orders of the defined types were placed in this encounter. Follow-Up - Follow up in about 3 months (around 03/07/2024). Lab Frequency Next Occurrence MR brain wo contrast Once 08/23/2023 History of Present Illness, Associated Treatments and Results - Dx MIGRAINES Tx ere 70 + Mg 250 bid + prn robert AEs Hx Freq (> 4 h) - 1-2 d/mo severe, 7 d/mo any severity. Recent severe MEJIAS. ... Orig (pre-CGRP) freq - daily. Imaging MR brain (09/2023, [facility]) - neg Testing Surgery Failed TPM 50 (cogn) ... CONTRA - b-blockers (asthma) Onset age 12-13, perhaps prepubertally Aura nausea phosphenes Sx pressure pulsating Loc frontal L>R Assoc nausea vomiting photophobia phonophobia movement-exacerbated dizziness blurred vision phosphenes scotomata Trigger barometric cervical spasm dehydration menses sleep deprivation stress (children) Compl paraesthesiae Clust none FHx mother, mat aunt Dx JENSEN / CLAUSTROPHOBIA Tx OFF CPAP @ 15 AEs Hx Download - not received. Use - reported as good. Mask - fits well, no leak. PAP improves sleep and diurnal wakefulness. Had great difficulty with exhalation; never changed to BiPAP, as machine was taken away due to low use. Failed PAP (claustrophobia) Semeiol Snores. No one has observed for apnoeas. Awakens 4-5 x/night. Mouth dry AM. Unrested AM and all day. Weight difficult to control. Circad Noct oxim PSG ([facility]) - AHI=37, REM=12 vs 41, supine=46 vs 13; PLMI=6.8, PLMAI=5.8 PAPT ([facility]) - AHI=0.3 @ 13, still=7.5 supine @ 12 MSLT MWT Imaging Testing Surgery T&A & UPPP pending Dx MYOFASCIITIS / CERVICOGENIC MEJIAS / ALIVIA Tx tizanidine 4 hs + home PT + PT completed (09/2023) ... inj (01/2022) AEs Hx Still problematic. Triggering HAs Onset Semeiology Imaging Testing Surgery Failed Physical Exam - General appearance, mentation, extraocular movements, facial strength and movement, hearing, upper and lower extremity strength and tone, sensation to gross testing, coordination, and gait are normal or at baseline unless noted below. HEENT - ___, unchanged: Tongue quite wide ... Jaw narrow ... Tonsils 3+, orig: ___ MS - ___, unchanged: ___, orig: ___ CNN - ___, unchanged: ___, orig: ___ Motor - ___, unchanged: ___, orig: ___ Sens - ___, unchanged: ___, orig: ___ Reflex - ___, unchanged: ___, orig: ___ Coord - ___, unchanged: ___, orig: ___ Gait - ___, unchanged: ___, orig: ___ Vestib - ___, unchanged: ___, orig: ___ MSK - Spasm - SCM sev Tr C mod, unchanged: ___, orig: ___ Other - ___, unchanged: ___, orig: ___ Vital Signs - Visit Vitals BP 137/79 Pulse 75 Ht 5' 3 Wt 207 lb BMI 36.67 kg/m Smoking Status Never BSA 2.04 m Review of Systems - . Const: Denies appetite change, fever, chills. Allergy: Denies medication reaction. Ocular: Denies visual acuity change. ENT: Denies hearing change. Endoc: Denies weight loss. Resp: Denies dyspnoea, wheezing. Cardiac: Denies angina, palpitations. GI: Denies nausea, vomiting. Haem: Denies bleeding. : Denies incontinence. MSK: Denies arthralgias, joint oedema. Derm: Denies rash, hair loss. Neuro: Denies ataxia, tremor. Also see HPI for elements of ROS documented therein and for details of positive findings, which shall supersede the foregoing. PMH, PSH, Allergies, FH, SH - Past Medical History: Diagnosis Date ADHD (attention deficit hyperactivity disorder) ([facility]) Asthma ([facility]) high schoool History of being hospitalized childbirth x1 06/24, ICU for strep throat 01/2023 Ulcerative colitis ([facility]) 2008 Past Surgical History: Procedure Laterality Date [place] MEDICATION MANAGEMENT Procedure:medications;Disease:ul cerative colitis No Known Allergies Family History Problem Relation Name Age of Onset No Known Problems Father Diabetes Maternal Grandmother Outpatient Encounter Medications as of 12/07/2023 Medication Sig Dispense Refill clonazePAM (KlonoPIN) 0.5 MG tablet 1/2 tab twice daily 30 tablet 3 erenumab (Aimovig) 70 MG/ML injection Inject 1 mL (70 mg) under the skin every 30 (thirty) days. 1 each 3 Humira 40 MG/0.4ML Prefilled Syringe Kit prefilled syringe Inject 40 mg under the skin every 14 (fourteen) days. Spiriva Respimat 1.25 MCG/ACT inhaler Inhale 2 puffs in the morning. SUMAtriptan (Imitrex) 100 MG tablet 1 prn migraine. May repeat once in 2 hrs. Max 2/MEJIAS 4/wk 9 tablet 3 Symbicort 160-4.5 MCG/ACT inhaler Inhale 2 puffs in the morning and 2 puffs in the evening. tiZANidine (Zanaflex) 4 MG tablet 1 po up to TID 90 tablet 3 Ventolin HFA 108 (90 Base) MCG/ACT inhaler Inhale 1 puff every 4 (four) hours. No facility-administered encounter medications on file as of 12/07/2023. documented in this encounter [facility] 07-29-2023 Evaluation note Encounter Date Diagnosis Assessment Notes Jul, Ulcerative colitis (ICD-10 - K51.90) COLITIS IS SHOWING IN REMISSION AT THIS TIME. PATIENT TO CONTINUE ON THE HUMIRA. PATIENT WILL REPEAT CBC AND CMP IN 6 MONTHS [facility] Encounter Date Diagnosis Assessment Notes Treatment Notes Treatment Clinical Notes Feb, Ulcerative colitis (ICD-10 - K51.90) [facility] Other 04-04-2023 Evaluation note* Encounter Date Diagnosis Assessment Notes Treatment Notes Treatment Clinical Notes Feb, Ulcerative colitis (ICD-10 - K51.90) [facility] Other 03-01-2022 History general Narrative - Reported* Type Description Date Hospitalization History throat closed 01/2022 [facility] Other 03-01-2022 History general Narrative - Reported* Type Description Date Medical History ulcerative colitis Medical History STORAGE POOLS Medical History sleep apnea Hospitalization History throat closed 01/2022 [facility] Other 02-22-2022 Evaluation note* Encounter Date Diagnosis Assessment Notes Treatment Notes Treatment Clinical Notes Dec, Colitis (ICD-10 - K52.9) RTO 6 MONTHS [facility] Other EvSpoutation noteNo InformationNort [employer] Other Evdkjdwczj note* Diagnosis Onset Date Resolution Status Ulcerative colitis [facility] Work Phone: evaluation note* Diagnosis Tonsillar hypertrophy Hypertrophy of tonsils alone Sleep apnea Unspecified sleep apnea Recurrent streptococcal tonsillitis Snoring Other dyspnea and respiratory abnormality Platelet function defect (CMS-HCC)- Primary Tonsillar hypertrophy Hypertrophy of tonsils alone Sleep apnea, unspecified type Recurrent streptococcal tonsillitis Snoring Other dyspnea and respiratory abnormality documented in this encounter [facility] [employer] SystemEvaluation note* Diagnosis JENSEN (obstructive sleep apnea)- Primary Obstructive sleep apnea (adult) (pediatric) Migraine without aura, intractable, without status migrainosus (CMS/HCC) 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) documented in this encounter [facility] HealthcareEvaluation note* Diagnosis Folliculitis- Primary Other specified disease of hair and hair follicles documented in this encounter [facility] HealthcareEvaluation note* Diagnosis Sleep apnea, unspecified type- Primary [facility] Discharge instructions Additional Instructions DISCHARGE INSTRUCTIONS FOR ENDOSCOPY FOR COLONOSCOPY: -Expect a gassy or full feeling after a colonoscopy. Report any NEW abdominal pain or vomiting. -Watch for rectal bleeding if you have a polyp removed. You may have oozing, but notify the doctor if you pass clots. -Avoid aspirin for 2 days IF a polyp is removed. -It is important to keep your appointments for follow up examinations because polyps can grow back. FOR LAYNE/EGD/ERCP/PEG: -Your throat may feel sore today from the scope that the doctor passed through your throat to visualize your stomach. Take a throat lozenge or suck on ice to ease the discomfort. -Do NOT smoke. -You may notice some streaks of blood in your sputum if the doctor has taken a biopsy. Notify the doctor if you cough up large amounts of blood. -Expect a gassy or full feeling after esophagoscopy. Report any persistent pain or vomiting. -Take it easy today. You need not stay in bed, but avoid strenuous activities such as jogging. FOR SEDATION FOR 24 HOURS: -NO driving -Do NOT operate machinery such as power tools, lawn mowers, snow blowers, sewing machines, etc. -Avoid alcoholic beverages and drugs for allergies, nerves, or sleep. -Do NOT stay alone. Do NOT leave your child unattended. -Do NOT make important personal or business decisions or sign any legal documents. -Eat solid foods and drink liquids in smaller amounts than usual until normal appetite returns. If you should experience an upset stomach, liquids high in sugar content (soda, Nikolas-aid, non-acid juices) are recommended. -You can resume normal activities tomorrow. FOLLOW UP Please call the office and make a follow up appointment to see me in 6-8 weeks. Continue Humira -Notify the doctor if you have any problems. -Office number [phone] Work Phone: InstructionsNot on filedocumented in this encounter [facility] [employer] SystemInstructionsNot on filedocumented in this encounter [facility] [employer] SystemInstructionsNot on filedocumented in this encounter [facility] [employer] System Summary Purpose Family History No Family History Records Found Relationship Condition Age at Onset Recorded Date/T cece grandparent Heart disease Unknown Diabetes mellitus Unknown Sleep apnea Unknown grandparent Malignant neoplasm Unknown father Diabetes mellitus Unknown Advance Directives No Advanced Directives Records FoundDocuments on File Type Date 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 Latest Code Status on File Code Status Date Activated Date Inactivated Comments Full Code 12/07/2018 6:20 PM 12/09/2018 9:25 PM Full Code 12/07/2018 5:59 AM 12/07/2018 5:55 PM Full Code 06/19/2017 9:49 PM 06/21/2017 12:29 PM Full Code 06/18/2017 4:59 PM 06/19/2017 9:49 PM Full Code 06/18/2017 12:49 PM 06/18/2017 4:59 PM Documents on File Type Date 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 Latest Code Status on File Code Status Date Activated Date Inactivated Comments Full Code 04/23/2020 8:51 PM Full Code 12/07/2018 6:20 PM 12/09/2018 9:25 PM Full Code 12/07/2018 5:59 AM 12/07/2018 5:55 PM Full Code 06/19/2017 9:49 PM 06/21/2017 12:29 PM Full Code 06/18/2017 4:59 PM 06/19/2017 9:49 PM Latest Code Status on File Code Status Date Activated Date Inactivated Comments Full Code 05/28/2020 1:06 AM Full Code 05/27/2020 8:39 AM 05/28/2020 12:36 AM Full Code 04/23/2020 8:51 PM 04/24/2020 1:19 AM Latest Code Status on File Code Status Date Activated Date Inactivated Comments Full Code 04/23/2020 8:51 PM 04/24/2020 1:19 AM Latest Code Status on File Code Status Date Activated Date Inactivated Comments Full Code 01/05/2023 5:41 PM 01/07/2023 7:18 PM Discharge Instructions * Instructions* Angie Hernández RN - 08/23/2019 See me in the office as needed. Call the GI clinic at if you have a problem or question. If a biopsy or polypectomy was done, call for results in two weeks if you have not been contacted by the GI clinic staff. It's normal to have a feeling of fullness or mild cramping in your abdomen afterwards due to air that is put into your bowel during the procedure. Mild activities such as walking will help you pass the air. You may resume your regular diet. CALL THE DOCTOR IF YOU HAVE: Chest pain or trouble breathing. A hoarse voice or trouble swallowing Bleeding from your rectum, vomiting or spitting up of blood that is more than a few streaks or red or black stools A fever above 101F or if you have chills Pain that is worse or different than any pain you had before the procedure Nausea or vomiting that lasts for more then 2 hours. If symptoms are to severe call 911 or go to the nearest Emergency Room. documented in this encounter* Instructions* Cindy So, VARGAS - 04/23/2020 OUTPATIENT DISCHARGE Jessica Mullen [facility] or [address] Dr. Clancy Dr. Castro, Felecia Carpenter [facility] Godwin aRy [facility] Felecia Paige [facility] Tati Olmedo [facility] ACTIVITY LIMITATIONS: ( )Up and about as desired and tolerated ( )Up to bathroom only ( )Lay on either side ( )Avoid heavy lifting or exercise ( )No sex ( )No nipple stimulation ( )Complet bedrest ( )Avoid using stairs ( )Increase fluids DRINK AT LEAST eight-8oz. Glasses of water daily. Call your Doctor if: ( )Contractions are every 5 minutes apart (from start of one to the start of the next contraction) lasting 60 seconds for at least 1 hour, strong enough you can not walk or talk through the contraction and regular. ( x)Bag of water breaks ( x)Vaginal bleeding (x )Unusual pain occurs ( x )Decreased movement ( x) labor: If you have 4 contractions in an hour Keep your scheduled follow up appointment. Or call for a follow up on . IN CASE OF EMERGENCY CONTACT LABOR AND DELIVERY . * Attachments The following attachments cannot be sent through Care Everywhere. * Coronavirus Disease (COVID-19): General Info (Bel[place]an) documented in this encounter* Discharge Instr - Activity* Shelly Guerrero RN - 05/29/2020 8:16 AM EDT As tolerated * Discharge Instr - Diet* Shelly Guerrero RN - 05/29/2020 8:16 AM EDT General diet * Additional Instructions* Shelly Guerrero RN - 05/29/2020 Follow-up with your OB doctor as specified. [facility] OB Department phone: Dr. Jake Grossman [facility] Dr. Matthew Carpenter CN [address] [address] [place] or [place] Godwin Ray, MSN, TERMITE CONTROL SERVICE REPRESENTATIVE, CNM [facility] [address] [facility] [address] [address] Clancy [address] [facility] [phone] Felecia Paige CNM [address] [address] [place] [address] Tati Olmedo CNM [address] [place] [address] [place] [address] [phone] DIET Eat a well balanced diet focusing on foods high in fiber and protein. Drink plenty of fluids especially water. To avoid constipation you may take a mild stool softener as recommended by your doctor or state game protector. ACTIVITY Gradually increase your activity. Resume exercise regimen only after advice by your doctor or state game protector. Avoid lifting anything heavier than a gallon of milk for SIX weeks. Avoid driving until your doctor or state game protector has given their approval. Rise slowly from a lying to sitting and then a standing position. Climb stairs one at a time. Use caution when carrying your baby up and down the stairs. NO SEXUAL Activity for 4-6 weeks or until advised by your doctor; Nothing in vagina: intercourse, tampons, or douching. Be prepared to discuss family planning at your follow-up OB visit. You may feel tired or have a lack of energy. You may continue your vitamin to replenish nutrients post delivery. Nap when baby naps to catch up on sleep. EMOTIONS You may feel rowe, sad, teary, & overwhelmed. Contact your OB provider if you feel you may be showing signs of depression, or have thoughts of harming yourself or your infant. If will not stop crying, contact another adult for help or place infant in their crib on their back and take a break. NEVER shake your infant. BLEEDING Vaginal bleeding will decrease in amount over the next few weeks. You will notice that as your activity increases, your flow may increase. This is your body's way oftelling you, you need to take things easier and rest more often. Call your care provider if you are saturating more than one maxi pad in an hour & resting does not help. BREAST CARE Take medications as recommended by your doctor or state game protector for pain If you develop a warm, red, tender area on your breast or develop a fever contact your OB provider. For moms: If you become engorged, feeding may be more difficult or painful for 1-2 days. You may find it helpful to hand express some milk so that the infant can latch on more easily. While , continue to take your vitamins as directed by your doctor or state game protector. Refer to the booklet in the folder/binder for more information. If you feel you need more assistance or have questions, please call Megan Turner IBCLC, sap payroll consultant, at or the OB department to schedule an appointment or phone consultation. For more FREE help, visit the Support Group on Wednesday evenings at 7 pm in the OB department. For NON- moms: You may apply ice packs to your breasts over your bra for twenty minutes at a time for comfort. Avoid stimulation to your breasts, when showering allow the water to strike your back not your breasts. Wear a good fitting bra until your milk dries, such as a sports bra. INCISIONAL CARE / ESTEFANIA CARE If you have an acticoat dressing in place after your please leave your dressing in place for one week until you follow up with your provider. They will remove this dressing in the office when you see them. If your dressing starts to peel up or becomes soiled prior to your appointment with your provider, you may remove the dressing and clean your incision as directed below. Clean your incision in the shower with mild soap. After shower pat the incision area dry and allow the area open to air. If used, Steri-strips should be completely removed by 2 weeks but you may remove them as they become loose or soiled. If used, Santa Claus should be removed by your care provider. If used/ordered, an abdominal binder may provide support for your incision. Use the estefania-bottle after toileting until bleeding stops. Cleanse your perineum from front to back If used, stitches will dissolve in 4-6 weeks. You may use a sitz bath or soak in a clean tub as needed for comfort. Kegel exercises will help restore bladder control. SWELLING Try to keep your legs elevated when you are sitting. When lying down keep your legs elevated. When wearing stocking or socks, make sure they are not too tight. WHEN TO CALL THE DOCTOR If you have a temp of 100.6 or more. If your bleeding has increased and you are saturating a pad in an hour. Your abdomen is tender to touch. You are passing blood clots bigger than the size of a lemon. If you are experiencing extreme weakness or dizziness. If you are having flu-like symptoms such as achy muscles or joints. There is a foul smell or a green color to your vaginal bleeding. If you have pain that cannot be relieved. You have persistent burning or frequency with urination. Call if you have concerns about your well-being. You are unable to sleep, eat, or are having thoughts of harming yourself or your baby. You have swelling, bleeding, drainage, foul odor, redness, or warmth in/around your incision or stitches. You have a red, warm, tender area in your calf. * Attachments The following attachments cannot be sent through Care Everywhere. * ([place]an) documented in this encounter* Instructions* Basia Heller RN - 05/22/2020 Home Undelivered Discharge Instructions After Discharge Orders: Future Appointments Date Time Provider Department Center 05/27/2020 8:00 AM [facility] L&D INDUCTION [facility] [place] HOD 07/23/2020 2:15 PM Raman Barnard MD [facility] Diet: normal diet as tolerated Rest: normal activity as tolerated Other instructions: Do kick counts once a day on your baby. Choose the time of day your baby is most active. Get in a comfortable lying or sitting position and time how long it takes to feel 10 kicks, twists, turns, swishes, or rolls. Call your physician or state game protector if there have not been 10 kicks in 2 hours Call physician or state game protector, return to Labor and Delivery, call 911, or go to the nearest Emergency Room if: increased leakage or fluid, contractions more than 6 per 30 minutes, decreased movement, persistent low back pain or cramping, bleeding from vaginal area, difficulty urinating, pain withurination, difficulty breathing or new calf pain wall mirror department supervisor scripts from [employer] in [place] and take as directed. documented in this encounter History of Present Illness * Joan Martinez RN - 08/23/2019 9:56 AM EDT Report given to Angie KAYE * Fabi Ron RN - 08/23/2019 9:15 AM EDT Patient refused test. States she is on her period and her boyfriend has a vasectomy. Risks explained to patient. Patient still wishes to refuses test. Refusal form signed and on chart. documented in this encounter* Shelly Guerrero RN - 05/29/2020 9:00 AM EDT Patient given discharge instructions at this time. [employer]razzo Mechanic Helper offered to go sinan them and patient chooses to read over them by herself. Motrin also given at this time per pt request. * Megan Muñoz RN - 05/28/2020 5:33 AM EDT Tucks pads and dermoplast spray placed in bathroom for patient use. * Megan Muñoz RN - 05/28/2020 5:30 AM EDT Pt ambulates to and from bathroom with a standby assist. Pt tolerates ambulation well and denies lightheadedness or dizziness. Pt voids and estefania care complete independently. Gown changed and all linens changed. Patient helped back to bed and in to a comfortable position. Call light placed within reach and bed in lowest locked position. * Myriam Ray APRN - CNM - 05/27/2020 11:40 PM EDT Patient feeling pressure and states it's hard not to push . Patient set up in bed, and will begin pushing. Dr Waldron updated with patient's progress and that we will start pushing. Text acknowledged. * Megan Muñoz RN - 05/27/2020 11:09 PM EDT SVE complete at [id number]. Robin Ray CNM states to let patient labor down. * Myriam Ray APRN - CNM - 05/27/2020 11:05 PM EDT Department of Obstetrics and Gynecology Progress Note SUBJECTIVE: I feel some pressure down there. Comfortable and no pain at this time, only feeling pressure OBJECTIVE: Vitals: 05/27/20 2230 05/27/20 2235 05/27/20 2244 05/27/20 2245 BP: (!) 96/59 Pulse: 83 Resp: Temp: TempSrc: SpO2: 98% 98% 98% Weight: Height: heart rate: Baseline Heart Rate: 130 Accelerations: present Prison Variability: moderate Decelerations: variable Contraction frequency: 2-4 minutes Membranes: Ruptured clear fluid, no fluid noted on bed pad at this time Cervix: Dilation: 9 cm Effacement: 90 Station: -1 Position: mid ASSESSMENT & PLAN: Continue routine orders Dr Waldron in unit and verbally updated her that patient is 9 cm Anticipate * Myriam Ray APRN - CNM - 05/27/2020 11:02 PM EDT SVE: Complete/100/0 station. Patient beginning to feel a little bit of vaginal pressure. Trial pushwith her and she has good expulsatory effort but doesn't feel the urge to push. Will labor down some more and explained to patient to put on her call light if she feels an increase in pressure. PVU. * Megan Muñoz RN - 05/27/2020 10:39 PM EDT Robin Ray CNM remains in department. * Megan Muñoz RN - 05/27/2020 9:05 PM EDT Pt states I feel fine. Not nauseous anymore . * Myriam Ray APRN - CNM - 05/27/2020 8:23 PM EDT Department of Obstetrics and Gynecology Progress Note SUBJECTIVE: Feeling better and I feel sleepy now OBJECTIVE: Vitals: 05/27/20200405/27/20200705/27/20200905/27/202018 BP: 106/64 Pulse: 94 Resp: Temp: TempSrc: SpO2: 100% 99% 99% Weight: Height: heart rate: Baseline Heart Rate: 135 Accelerations: present Stair Builder Variability: moderate Decelerations: absent Contraction frequency: 2-3 minutes Membranes: Ruptured clear fluid Cervix: Dilation: 4 cm Effacement: 60 Station: -2 Position: mid ASSESSMENT & PLAN: Continue routine labor orders Frequent position changes Anticipate * Megan Mñuoz RN - 05/27/2020 8:14 PM EDT Robin Ray CNM remains in department. * Megan Muñoz RN - 05/27/2020 7:47 PM EDT Patient sitting upright in bed for epidural from [id number]. FHR not tracing on monitor yet FHR intermittently heard by RN at bedside. Patient continues to contract every 2-3 minutes. * Megan Muñoz RN - 05/27/2020 7:28 PM EDT STUART Mccarty at bedside. * Megan Muñoz RN - 05/27/2020 7:25 PM EDT Patient standing at side of bed, leaned over and swaying her hips back and forth. RN at bedside. * Rosibel Grossman APRN - CNM - 05/27/2020 6:46 PM EDT Called to room to assist godwin with amniotomy assessment. AROM with finger cot for moderate amount of clear fluid with some old blood flecks noted. Pt tolerated well * Myriam Ray APRN - CNM - 05/27/2020 6:39 PM EDT SVE done, patient having a hard time tolerating exam. Unable to feel bag of water. Consulted Mark Grossman CNM who is in department to assess patient and feel for BOW. She feels bag posteriorly and ruptures with sterile finger cot for moderate amount of clear fluid with blood flakes, odorless fluid. Pt is becoming more uncomfortable and would like to get an epidural. Anesthesia is in OR currently and then will place another patients' epidural and then administer hers. PVU and agrees with the plan of care. * Myriam Ray APRN - CNM - 05/27/2020 5:05 PM EDT Department of Obstetrics and Gynecology Progress Note SUBJECTIVE: The contractions are getting a little stronger OBJECTIVE: Vitals: 05/27/20 1530 05/27/20 1558 05/27/20 1600 05/27/20 1628 BP: 103/64 116/67 (!) 118/58 Pulse: 69 82 77 Resp: 18 Temp: Weight: Height: heart rate: Baseline Heart Rate: 125 Accelerations: present Prison Variability: moderate Decelerations: absent Contraction frequency: 2-3 minutes Membranes: Intact Cervix: Dilation: 3 cm Effacement: 60 Station: -3 Position: mid ASSESSMENT & PLAN: Continue routine pitocin induction Continue routine labor orders DC pitocin at 24 mu for 30 mins and then restart infusion at 12mu/hr * Myriam Ray APRN - CNM - 05/27/2020 3:07 PM EDT Department of Obstetrics and Gynecology Progress Note SUBJECTIVE: Doing ok, states her back hurts and her butt is extremely numb OBJECTIVE: Vitals: 05/27/20 1329 05/27/20 1359 05/27/20 1400 05/27/20 1428 BP: 109/64 107/65 110/60 Pulse: 65 64 71 Resp: 18 Temp: Weight: Height: heart rate: Baseline Heart Rate: 130 Accelerations: present Stair Builder Variability: moderate Decelerations: absent Contraction frequency: 2-3 minutes Membranes: Intact Cervix: Dilation: 2 cm Effacement: 50% Station: -3 Position: Mid- Bollotable, unable to rupture membranes due to baby position at this time ASSESSMENT & PLAN: Continue with routine pitocin and labor orders Allow patient up on the birthing ball Anticipate Dr Waldron updated via text and text acknowledged documented in this encounter* Basia Heller RN - 05/22/2020 4:55 PM EDT DC instructions given. * Basia Heller RN - 05/22/2020 4:30 PM EDT Pt has had no leaking of fluid onto bag. * Basia Heller RN - 05/22/2020 3:53 PM EDT S Royal WADE phoned on cell. Updated that pt had low fluid level last week and pt was scheduled for an US to check it again tomorrow. Pt called office today and wanted to know if she could have the US done today. When the office asked her why she stated she was just nervous about it. They then asked her if she thought she was ruptured and she stated that her panties are just wet a lot . Pt states she has a lot of discharge and wears a pantiliner. Amnioswab completed and was negative. Pts inner labia are very red and sore to touch. SVE completed and thick white discharge noted. FHR reactive at this time and no contractions noted. documented in this encounter Assessments Diagnosis Abdominal cramping Abdominal pain, unspecified site Diagnosis Term Hospital Course * Felecia Paige APRN - CNM - 05/29/2020 7:48 AM EDT Obstetrical Discharge Form Gestational Age:39w2d Antepartum complications: Ulcerative colitis, 3rd trimester anemia Type of Delivery: Delivered By: Robin Ray CNM Anesthesia: epidural Intrapartum complications: none Feeding method: bottle Blood type: A POSITIVE Rubella: Rubella Antibody, IGG Date Value Ref Range Status 05/19/2018 IMM Final T. Pallidium, IGG: T. pallidum, IgG Date Value Ref Range Status 05/19/2018 NR Final Hepatitis B Surface Antigen: Hepatitis B Surface Ag Date Value Ref Range Status 05/19/2018 NR Final HIV: No results found for: [id number] Results for orders placed or performed during the hospital encounter of 05/27/20 GBS, External Result Result Value Ref Range GBS, External Result NEGATIVE C. Trachomatis, External Result Result Value Ref Range C. Trachomatis, External Result POSITIVE N. Gonorrhoeae, External Result Result Value Ref Range N. Gonorrhoeae, External Result NEGATIVE Chlamydia trachomatis DNA, Urine Specimen: Urine Result Value Ref Range Specimen Description .URINE C. trachomatis DNA ,Urine NEGATIVE NEGATIVE CBC auto differential Result Value Ref Range WBC 9.6 3.5 - 11.3 k/uL RBC 4.36 3.95 - 5.11 m/uL Hemoglobin 9.8 (L) 11.9 - 15.1 g/dL Hematocrit 32.8 (L) 36.3 - 47.1 % MCV 75.2 (L) 82.6 - 102.9 fL MCH 22.5 (L) 25.2 - 33.5 pg MCHC 29.9 28.4 - 34.8 g/dL RDW 19.0 (H) 11.8 - 14.4 % Platelets 324 138 - 453 k/uL MPV 9.9 8.1 - 13.5 fL NRBC Automated 0.0 0.0 per 100 WBC Differential Type NOT REPORTED Seg Neutrophils 71 (H) 36 - 65 % Lymphocytes 17 (L) 24 - 43 % Monocytes 8 3 - 12 % Eosinophils % 3 1 - 4 % Basophils 0 0 - 2 % Immature Granulocytes 1 (H) 0 % Segs Absolute 6.79 1.50 - 8.10 k/uL Absolute Lymph # 1.62 1.10 - 3.70 k/uL Absolute Kings # 0.75 0.10 - 1.20 k/uL Absolute Eos # 0.31 0.00 - 0.44 k/uL Basophils Absolute 0.03 0.00 - 0.20 k/uL Absolute Immature Granulocyte 0.07 0.00 - 0.30 k/uL WBC Morphology NOT REPORTED RBC Morphology NOT REPORTED Platelet Estimate NOT REPORTED DRUG SCREEN MULTI URINE Result Value Ref Range Amphetamine Screen, Ur NEGATIVE NEGATIVE Barbiturate Screen, Ur NEGATIVE NEGATIVE Benzodiazepine Screen, Urine NEGATIVE NEGATIVE Cocaine Metabolite, Urine NEGATIVE NEGATIVE Methadone Screen, Urine NEGATIVE NEGATIVE Opiates, Urine NEGATIVE NEGATIVE Phencyclidine, Urine NEGATIVE NEGATIVE Propoxyphene, Urine NEGATIVE NEGATIVE Cannabinoid Scrn, Ur NEGATIVE NEGATIVE Oxycodone Screen, Ur NEGATIVE NEGATIVE Methamphetamine, Urine NEGATIVE NEGATIVE Tricyclic Antidepressants, Urine NEGATIVE NEGATIVE MDMA, Urine NOT REPORTED NEGATIVE Buprenorphine Urine NEGATIVE NEGATIVE Test Information NOT REPORTED HIV, External Result Result Value Ref Range HIV, External Result NON-REACTIVE RPR, External Lab Result Value Ref Range RPR, External Result NON-REACTIVE Hepatitis B, External Result Result Value Ref Range Hep B, External Result NON-REACTIVE Rubella Titer, External Result Result Value Ref Range Rubella Titer, External Result IMMUNE CBC Result Value Ref Range WBC 13.1 (H) 3.5 - 11.3 k/uL RBC 4.07 3.95 - 5.11 m/uL Hemoglobin 9.2 (L) 11.9 - 15.1 g/dL Hematocrit 30.4 (L) 36.3 - 47.1 % MCV 74.7 (L) 82.6 - 102.9 fL MCH 22.6 (L) 25.2 - 33.5 pg MCHC 30.3 28.4 - 34.8 g/dL RDW 19.3 (H) 11.8 - 14.4 % Platelets 283 138 - 453 k/uL MPV 10.1 8.1 - 13.5 fL NRBC Automated 0.0 0.0 per 100 WBC Rh Factor, External Result Result Value Ref Range Rh Factor, External Result POSITIVE ABO, External Result Result Value Ref Range ABO, External Result A complications: anemia Discharge Medication: Riri Alejandro Home Medication Instructions PRICE:[id number] Printed on:05/29/20 0748 Medication Information Adalimumab (HUMIRA) 40 MG/0.4ML PSKT Inject 40 mg into the skin every 14 days ferrous sulfate 325 (65 Fe) MG tablet Take 1 tablet by mouth 2 times daily (with meals) Admit date: 05/27/2020 8:13 AM Discharge Date: 05/29/2020 A: Day 1 PP Discharged to: home in stable condition Plan: Follow up with Dr. Barnard in the next couple weeks. Follow up with Godwin Ray CNM in 2 weeks. documented in this encounter Chief Complaint and Reason for Visit Chief Complaint Ulcerative Colitis Reason for Visit Ulcerative colitis Additional Source Comments INFORMATION SOURCE (unrecogn ized section and content) DATE CREATED AUTHOR 04/29/2018 [facility] DATE CREATED AUTHOR AUTHOR'S ORGANIZ ATION 02/16/2023 [facility]ia DATE CREATED AUTHOR AUTHOR'S ORGANIZ ATION 03/22/2023 [facility] pitia DATE CREATED AUTHOR AUTHOR'S ORGANIZ ATION 05/03/2023 [facility] DATE CREATED AUTHOR AUTHOR'S ORGANIZ ATION 12/26/2023 [facility] EPIC DATE CREATED AUTHOR AUTHOR'S ORGANIZ ATION 01/12/2024 [facility] Reason for Visit (unrecogniz ed section and content) Status Reason Specialty Diagnoses / Procedures Referre d By Contact Referred To Contact Diagnoses Ulcerative pancolitis (HCC) ULCERATIVE PANCOILITIS WITHOUT COMPLICATION Procedures TX COLONOSCOPY FLX DX W/COLLJ SPEC WHEN PFRMD COLONOSCOPY DIAGNOSTIC Raman Barnard MD [address] [place] [address] [place] [address] [facility] Reason Comments Abdominal Pain Reason Comments Scheduled Induction Status Reason Specialty Diagnoses / Procedures Referre d By Contact Referred To Contact Diagnoses Term Myriam Ray, MIGEL - CNM [address] [place] [address] [facility] Reason Onset Date Comments Surgical Or Dental Clearance 12/10/2023 Reason Comments Migraine Care Teams (unrecognized sec tion and content) Team Status: Active Member Role Status Dates Maegan Lara NP-Kirt Primary Care Provider Active Team Status: Inactive Member Role Status Dates Jm Bell MD Attending Provider Active Maegan Lara NP-C Primary Care Provider Active Photo Mask Processor Relationship Specialty Start Date End Date Maegan Lara APRN-[employer] [address] [place] [id number] PCP - General Family Medicine 06/09/23 Photo Mask Processor Relationship Specialty Start Date End Date Unallocated, [place] Provider [address] [place] [address] PCP - General 05/24/23 Photo Mask Processor Relationship Specialty Start Date End Date Unallocated, [place]oms Provider [address] [place] [address] PCP - General 05/24/23 Photo Mask Processor Relationship Specialty Start Date End Date Unallocated, Noms Provider [address] [place] [address] PCP - General 05/24/23 Photo Mask Processor Relationship Specialty Start Date End Date Unallocated, [place] Provider [address] [place] [address] PCP - General 05/24/23 Photo Mask Processor Relationship Specialty Start Date End Date Maegan Lara APRN-ANGELO [address] [facility], [place] [address] PCP - General Family Medicine 06/09/23 Photo Mask Processor Relationship Specialty Start Date End Date Maegan Lara, TERMITE [employer] SERVICE REPRESENTATIVE-[employer] [address] [facility], [place] [address] PCP - General Family Medicine 06/09/23 FOR RECORDS PERTAINING TO PATIENTS WHO ARE OR HAVE BEEN ENROLLED IN A CHEMICAL DEPENDENCY/SUBSTANCEABUSE PROGRAM, SOME INFORMATION MAY BE OMITTED. This clinical summary was aggregated from multiple sources. Caution should be exercised in using it in the provision of clinical care. This summary normalizes information from multiple sources, and as a consequence, information in this document may materially change the coding, format and clinical context of patient data. In addition, data may be omitted in some cases. CLINICAL DECISIONS SHOULD BE BASED ON THE PRIMARY CLINICAL RECORDS. [facility] [employer] [facility]. provides no warranty or guarantee of the accuracy or completeness of information in this document.
== END 2024-01-26 09:31 | disposition home or self-care (01) ==
LOC: RAD 09:31
PROVIDERS: PCP Nurse Practitioner Family; Visit Provider Nurse Practitioner Family
DX: M54.30 Sciatica, unspecified side (principal)
CPT/HCPCS: 72100

== ENCOUNTER 2024-01-26 20:05 | Emergency (ER) | payer MEDICAID, SELFPAY ==
[2024-01-26 20:08] VITALS: BP 142/85; PULSE 79; RESP 16; TEMP 36.7; O2SAT 100; BMI 37.2
--- NOTE | 2024-01-26 20:16 | ED_ITS ---
HPI - General Adult General Chief complaint: Abdominal Pain Stated complaint: Abdominal Pain Time Seen by Provider: 01/26/24 20:06 Source: patient Mode of arrival: walk-in Limitations: no limitations History of Present Illness HPI narrative: Patient is a 28-year-old female with a history of ulcerative colitis. She presents to the emergency department for the evaluation of acid reflux type symptoms for the past week associated with a bloated sensation. She states this typically precedes her ulcerative colitis exacerbations, but she has not had any disproportionate diarrhea or bloody stools. She has not had any fevers or upper respiratory symptoms. She vomited once at the beginning of the course of her illness and states she vomited this morning on trying to take milk of magnesia because she was concerned she might be constipated. She states she typically only has bowel movements 1-2 times a week and frequently takes MiraLAX to help her with her stools. She denies urinary symptoms. She is not concerned for . She has never had previous abdominal surgery but does get colonoscopies every 2 to 3 years. She states she had a scope last year and her GI doctor was happy with the imaging results. Related Data Home Medications ?Medication ?Instructions ?Recorded ?Confirmed adalimumab 40 mg/0.4 mL 20 mg subcut Q14D 10/04/23 01/26/24 subcutaneous pen kit (Humira(CF) Pen) albuterol sulfate 90 mcg/actuation 1 puff inhalation Q8H PRN 10/04/23 01/26/24 aerosol inhaler shortness of breath or wheezing budesonide-formoterol HFA 160 2 puff inhalation Q12H PRN 10/04/23 01/26/24 mcg-4.5 mcg/actuation aerosol shortness of breath or wheezing inhaler (Symbicort) clonazepam 0.5 mg tablet 0.5 mg PO Q12H 10/04/23 01/26/24 erenumab-aooe 70 mg/mL 70 mg subcut .monthly 10/04/23 10/04/23 subcutaneous auto-injector (Aimovig Autoinjector) tiotropium bromide 1.25 2 puff inhalation Q24H 10/04/23 01/26/24 mcg/actuation mist for inhalation (Spiriva Respimat) tizanidine 4 mg tablet 4 mg PO Q8H 10/04/23 01/26/24 erenumab-aooe 140 mg/mL mg subcut 01/26/24 subcutaneous auto-injector (Aimovig Autoinjector) Previous Rx's ?Medication ?Instructions ?Recorded famotidine 20 mg tablet (Pepcid) 20 mg PO BID #10 tabs 10/04/23 ondansetron 4 mg disintegrating 4 mg PO Q6H PRN nausea and 10/04/23 tablet vomiting #12 tabs dicyclomine 20 mg tablet 20 mg PO QID PRN abdominal pain 01/26/24 #12 tabs ondansetron 4 mg disintegrating 4 mg PO Q6H PRN nausea and 01/26/24 tablet vomiting #12 tabs pantoprazole 40 mg tablet,delayed 40 mg PO DAILY #7 tabs 01/26/24 release (Protonix) sucralfate 1 gram tablet (Carafate) 1 g PO Q6H PRN abdominal pain #12 01/26/24 tabs Allergies Allergy/AdvReac Type Severity Reaction Status Date / Time No Known Drug Allergies Allergy Verified 01/26/24 20:11 Review of Systems ROS Constitutional Denies: fever or chills Ears, nose, mouth, and throat Denies: throat pain Cardiovascular Denies: chest pain Respiratory Denies: shortness of breath or cough Gastrointestinal Reports: abdominal pain, nausea, vomiting, diarrhea, constipation and bloating Genitourinary Denies: painful urination Musculoskeletal Denies: back pain Integumentary/Breast Denies: rash Hematologic/Lymphatic Denies: easy bruising or easy bleeding PFSH PFS Social History Smoking status: Current every day smoker Exam Narrative Exam Narrative: Gen.: Awake, alert, in no distress Head: Normocephalic, atraumatic ENT: Moist mucous membranes Respiratory: No respiratory distress Gastrointestinal: Abdomen is soft, nondistended and Minimally tender to palpation in the epigastrium and left upper quadrant. Abdomen is soft with no guarding or rebound Extremities: Moves extremities equally, no injuries noted Psych: Normal mood and affect Neuro: No focal neuro deficit Skin: Warm, dry, intact Constitutional Vital Signs, click to edit/add: Last Vital Signs Temp 98.1 F 01/26/24 20:08 Pulse 79 01/26/24 20:08 Resp 16 01/26/24 20:08 BP 128/74 01/26/24 21:46 Pulse Ox 100 01/26/24 20:08 O2 Del Method Room Air 01/26/24 20:08 Course Vital Signs Vital signs: Vital Signs Temperature 98.1 F 01/26/24 20:08 Pulse Rate 79 01/26/24 20:08 Respiratory Rate 16 01/26/24 20:08 Blood Pressure 142/85 H 01/26/24 20:08 Pulse Oximetry 100 01/26/24 20:08 Oxygen Delivery Method Room Air 01/26/24 20:08 Temperature 98.1 F 01/26/24 20:08 Pulse Rate 79 01/26/24 20:08 Respiratory Rate 16 01/26/24 20:08 Blood Pressure 128/74 01/26/24 21:46 Pulse Oximetry 100 01/26/24 20:08 Oxygen Delivery Method Room Air 01/26/24 20:08 Medical Decision Making MDM Narrative Medical decision making narrative: Lab studies show minimally elevated sed rate with normal CRP. After 1 week Of symptoms and normal CRP with no significant elevation of sed rate, I suspect the patient is not having an ulcerative colitis exacerbation. White blood cell count, LFTs and lipase are normal. Patient sent for abdominal x-rays with no evidence of acute process. She will be treated for gastritis with medication for home, abdomen is soft and benign in the ER with stable vital signs. Follow- up with PCP and return to the ER if symptoms change or worsen. Medical Records Medical records reviewed: Yes I reviewed the patient's medical records Lab Data Lab results reviewed: Yes I reviewed the patient's lab results Labs: Lab Results 01/26/24 01/26/24 Range/Units 20:15 20:30 WBC 9.3 (4.0-11.0) 10^3/uL RBC 4.32 (4.20-5.40) 10^6/uL Hgb 11.6 L (12.0-16.0) g/dL Hct 36.1 (36.0-48.0) % MCV 83.6 (81.0-99.0) fL MCH 26.9 (26.7-34.0) pg MCHC 32.1 (29.9-35.2) g/dL RDW 14.6 (11.0-15.0) % Plt Count 329 (150-450) 10^3/uL MPV 9.3 L (9.5-13.5) fL Neut % (Auto) 59.6 (43.0-75.0) % Lymph % (Auto) 28.6 (20.5-60.0) % [place] % (Auto) 8.2 (1.7-12.0) % Eos % (Auto) 3.1 (0.9-7.0) % Baso % (Auto) 0.3 (0.2-2.0) % Neut # (Auto) 5.6 (1.4-6.5) 10^3/uL Lymph # (Auto) 2.7 (1.2-3.8) 10^3/uL [place] # (Auto) 0.8 (0.3-0.8) 10^3/uL Eos # (Auto) 0.3 (0.0-0.7) 10^3/uL Baso # (Auto) 0.0 (0.0-0.1) 10^3/uL Abs Immat Gran (auto) 0.02 (0.00-0.03) 10^3/uL Imm/Tot Granulo (auto) 0.2 (0.0-0.5) % ESR 34 H (<=20) mm/hr Sodium 135 L (136-145) mmol/L Potassium 3.4 L (3.5-5.1) mmol/L Chloride 103 (98-107) mmol/L Carbon Dioxide 23.6 (21.0-32.0) mmol/L Anion Gap 11.8 BUN 17.0 (7.0-18.0) mg/dL Creatinine 0.82 (0.55-1.02) mg/dL Est GFR ( Amer) >60 (>=60) Est GFR (Non-Af Amer) >60 (>=60) BUN/Creatinine Ratio 20.7 Glucose 86 (74-106) mg/dL Lactate 0.8 (0.4-2.0) mmol/L Calcium 8.5 (8.5-10.1) mg/dL Total Bilirubin 0.2 (0.2-1.0) mg/dL AST 11 L (15-37) U/L ALT 15 (14-59) U/L Alkaline Phosphatase 48 (46-116) U/L C-Reactive Protein <0.50 (<=0.50) mg/dL Total Protein 7.6 (6.4-8.2) g/dL Albumin 3.6 (3.4-5.0) g/dL Globulin 4.0 g/dL Albumin/Globulin Ratio 0.9 Serum HCG, Qual Negative (NEGATIVE) Urine Color Yellow (YELLOW) Urine Clarity Sl cloudy (CLEAR) Urine pH 5.5 (5.0-9.0) Ur Specific [place] >=1.030 A (1.005-1.025) Urine Protein Negative (NEG/TRACE) mg/dL Urine Glucose (UA) Negative (NEGATIVE) mg/dL Urine Ketones Negative (NEGATIVE) mg/dL Urine Occult Blood Small A (NEGATIVE) Urine Nitrite Negative (NEGATIVE) Urine Bilirubin Negative (NEGATIVE) Urine Urobilinogen 0.2 (0.2-1.0) EU/dL Ur Leukocyte Esterase Negative (NEGATIVE) Urine RBC 0-2 (0-2) #/HPF Urine WBC 0-2 A (NONE SEEN) #/HPF Ur Squamous Epith Cells Few A (NONE/RARE) #/LPF Urine Crystals None seen (None Seen) #/HPF Amorphous Sediment Many Urine Bacteria None seen (NONE SEEN) #/HPF Urine Casts None seen (NONE SEEN) #/LPF Urine Mucus None seen (NONE SEEN) Imaging Data Abdominal x-ray: Attestation: I have reviewed the pertinent imaging results. Radiologist's impression: ITS Impressions Abdomen X-Ray 01/26/24 20:54 Impression: Nonobstructive bowel gas pattern without evidence of free air. Electronically authenticated by: KENNY DENNY Date: 01/26/2024 21:32 Discharge Plan Discharge Stand Alone Forms: Portal Instructions Chief Complaint: Abdominal Pain Clinical Impression: Abdominal pain Patient Disposition: Home, Self-Care Time of Disposition Decision: 21:36 Condition: Good Prescriptions / Home Meds: New sucralfate [Carafate] 1 gram tablet 1 g PO Q6H PRN (Reason: abdominal pain) Qty: 12 0RF dicyclomine 20 mg tablet 20 mg PO QID PRN (Reason: abdominal pain) Qty: 12 0RF pantoprazole [Protonix] 40 mg tablet,delayed release (DR/EC) 40 mg PO DAILY Qty: 7 0RF ondansetron 4 mg tablet,disintegrating 4 mg PO Q6H PRN (Reason: nausea and vomiting) Qty: 12 0RF No Action Aimovig Autoinjector 140 mg/mL auto-injector SUBCUT Humira(CF) Pen 40 mg/0.4 mL pen injector kit 20 mg SUBCUT Q14D budesonide-formoterol [Symbicort] 160-4.5 mcg/actuation HFA aerosol inhaler 2 puff INHALATION Q12H PRN (Reason: shortness of breath or wheezing) clonazepam 0.5 mg tablet 0.5 mg PO Q12H Aimovig Autoinjector 70 mg/mL auto-injector 70 mg SUBCUT .monthly Spiriva Respimat 1.25 mcg/actuation mist 2 puff INHALATION Q24H tizanidine 4 mg tablet 4 mg PO Q8H albuterol sulfate 90 mcg/actuation HFA aerosol inhaler 1 puff INHALATION Q8H PRN (Reason: shortness of breath or wheezing) famotidine [Pepcid] 20 mg tablet 20 mg PO BID Qty: 10 0RF ondansetron 4 mg tablet,disintegrating 4 mg PO Q6H PRN (Reason: nausea and vomiting) Qty: 12 0RF Print Language: Iraqi Instructions: Acute Abdominal Pain (ED) Referrals: ZACK LARA [Primary Care Provider] - 1 week Discharge Date/Time: 01/26/24 21:48
--- OUTSIDE RECORDS SUMMARY | 2024-01-26 20:22 | XMS_ITS | CCD ---
Author Organization [facility] Care Team Providers Care Bell Clerk Name Role Phone Basia Mattson Primary Care [...] Care Unavailable MD Jm Bell Attending Provider [phone] MARCELINO Lara Maegan Lara Primary Care Provider Marco Maegan Lara Primary Care Unavailable Jm Bell Attending UnavailJm Anthony Admitting Unavailrosina e Marco INFRASTRUCTURE DEVELOPER-ANGELO, Maegan S Primary Care Provider Unallocated, [place] [...] Propensity to adverse reactions to drug 3 [place], [place] (4 sources) Other Propensity to adverse reactions 2 [place] (2 sources) Horse/Equine Containing Products; Translations: [Horse/Equine Containing Products] Allergy to substance 3 Swelling of Lip/Tongue/Thro at [facility] Medications Current Medications Medication Drug Class(es) [...] skin every 14 (fourteen) days. 0 Active [id number] 200 actuat albuterol 0.09 mg/actuat metered dose [...] 29, 2023 12:00am take 1 capsule by [facility] every twenty-four hours Vitamin D3 50 MCG [...] sources) NON FORMULARY da scott. Med Name: Pidgoncandi 0 Active Lamar 3 1000 MG (1 source) take 1 capsule by mouth once daily Lamar 3 1000 MG 1 capsule Orally Once a day Active omega 7-mua-oic-fish oil (Fish OiL) 300-1,000 mg capsule (3 sources) omega 3-dha-epa- fish oil (Fish OiL) 300-1,000 mg capsule Take by mouth daily. 0 Active Lamar-3 Fatty Acids-Fish Oil (1 source) Start: 2022 take 1 capsule by mouth once daily Lamar-3 Fatty Acids-Fish Oil Active 1 CAP PO [...] 0 01/05/2024 01/12/2024 Active polyethylene glycol 3350 38033 mg powder for oral solution (6 sources) Osmotic Laxative End: 2019 polyethylene glycol (GLYCOLAX) 17 gram/dose powder Take 17 g by mouth daily as needed. 0 Active polyethylene glycol 3350 343239 mg / potassium chloride 2970 mg / sodium bicarbonate 6740 mg / sodium chloride 5860 mg / sodium sulfate 94268 mg powder for oral solution (4 sources) [...] NOTES). 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; Translations: [OTH NURSING HOME CURRENT DRUG THERAPY] Onset: 11-06-2022 Episodic Other [...] ( test) Ql (U) Negative Normal NEG [facility] Comment on above: Performed By: #### 2 106-3 #### [facility] ([id number]) [facility] [place] [address] Surgical Pathologyon 024 Surgical Pathology Normal [facility] Comment on above: Result Comment: [facility] [address] [place] [address] Surgical Pathology Consultation Patient Name:RIRI ALEJANDRO:1995 (Age: 28)Gender:FTaken:4Reported:01/11/2024hysician(s):Hugo Friedman MD ([phone])Copy To: Rec. #:[id number]: #[id number] Final Pathologic Diagnosis Right and left tonsils (2 H&E): Tonsils, 2, with reactive chronic follicular lymphoid hyperplasia. Report Electronically Signed Out /01/11/2024Chino Soriano MD Interpretation performed at [facility], [address] [place] [address], License number: [id number]. Clinical History tonsillar hypertrophy, sleep apnea, unspecified type, recurrent streptococcal tonsilitis, snoring. Gross Description Received in formalin labeled JAVON, right and left tonsils are bilateral tonsils, 2.1 x 1.8 x 1.2 cm and 2.3 x 1.6 x 1.4 cm. The specimen are sectioned to reveal uniform tonsillar architecture. Archives Technician sections are submitted in cassettes A-B. (2, ss, [id number], m6) . /01/05/2024O Microscopic Findings Microscopic examination performed. Specimen(s) Received Right and left tonsils Fee Codes(s): 1; 65297 Amphetamine Screen Ql (U)Ord ered By: Jm Bell on 04-29-2023 Amphetamines Ql (U) Negative Negative [facility] Barbiturates [Presence] in U rine by Screen methodOrdered By: Jm Bell on 04-29-2023 Barbiturates Screen Ql (U) Negative Negative [facility] Benzodiazepines Screen Ql (U )Ordered By: Jm Bell on 04-29-2023 Benzodiazepines Ql (U) Negative Negative [facility] Benzoylecgonine [Presence] i n Urine by Screen methodOrdered By: Jm Bell on 04-29-2023 Benzoylecgonine Screen Ql (U) Negative Negative [facility] Cannabinoids [Presence] in U rine by Screen methodOrdered By: Jm Bell on 04-29-2023 Cannabinoids Screen Ql (U) Negative Negative [facility] Comment on above: These are unconfirme d results and should not be used for legal purposes. Drug Cut-Off Concentration: AMPH 1000 ng/mL DOUG 200 ng/mL PAZ 200 ng/mL COCM 300 ng/mL OP 300 ng/mL PCP 25 ng/mL THC 20 ng/mL Drug Screen,Urineon 04-29-20 23 Amphetamine Screen,Urine Negative Normal Negative [facility] Comment on above: Performed By: #### U RDS #### [address] Barbiturate Screen,Urine Negative Normal Negative [facility] Comment on above: Performed By: #### U RDS #### [place] [address] [place] Benzodiazepines Screen,Urine Negative Normal Negative [facility] Comment on above: Performed By: #### U RDS #### [address] Cannabinoid Screen,Urine Negative Normal Negative [facility] Comment on above: Result Comment: Thes e are unconfirmed results and should not be used for legal purposes. Drug Cut-Off Concentration: AMPH 1000 ng/mL DOUG 200 ng/mL PAZ 200 ng/mL COCM 300 ng/mL OP 300 ng/mL PCP 25 ng/mL THC 20 ng/mL PERFORMED BY: [place] [address] PATHOLOGIST FISHERIES DIVER BALDEMAR LUNSFORD M.D. Performed By: #### U RDS #### [place] [address] [place] Cocaine Screen,Urine Negative Normal Negative [facility] Comment on above: Performed By: #### U RDS #### [address] Opiate Screen,Urine Negative Normal Negative [facility] Comment on above: Performed By: #### U RDS #### [address] Phencyclidine Screen,Urine Negative Normal Negative [facility] Comment on above: Performed By: #### U RDS #### [address] HCG ( test) IA.rapi d Ql (U)Ordered By: Jm Bell on 04-29-2023 HCG ( test) Ql (U) Negative [facility] HCG,Urineon 04-29-2023 Beta HCG ( test) Ql (U) Negative Normal [facility] Comment on above: Result Comment: PERF ORMED BY: [place] [address] PATHOLOGIST FISHERIES DIVER BALDEMAR LUNSFORD M.D. Performed By: #### U HCG #### [address] [place] 04-29-2023 L Specimen: [id number] Received: 04/29/23 Status: MAL Brian Num: [id number] Spec Type: Surgical Subm Dr: Jm Bell MD Tissues: A Colon Biopsy (RANDOM COLON BX) B Colon Biopsy (SIGMOID POLYP) Procedures: HE/4, Gross/Micro L4/2 Age/ Patient Sex Location Account Attending Physician JavonRiri H 27/ [id number] Jm Bell MD SPEC NUM: [id number] RECD: 04/29/23 STATUS: MAL MODI NUM: [id number] SRIRAM: 04/29/23- [facility] DR: Jm Bell MD ENTERED: [...] The microscopic examination confirms the diagnosis. Specimen: [id number] Received: 04/29/23 Status: MAL Modi Num: [id number] Spec Type: Surgical Subm Dr: Jm Bell MD Tissues: A Colon Biopsy (RANDOM COLON BX) B Colon Biopsy (SIGMOID POLYP) Procedures: HE/4, Gross/Micro L4/2 Patient: Riri Alejandro [id number] (Continued) Specimen: [id number] Received: 04/29/23 (Continued) Signed (signature on file) Murtaza Erazo MD 05/03/23 1312 Specimen: [id number] Received: 04/29/23 Status: MAL Modi Num: [id number] Spec Type: Surgical Subm Dr: Jm Bell MD Tissues: A Colon Biopsy (RANDOM COLON BX) B Colon Biopsy (SIGMOID POLYP) Procedures: HE/Farhad, Gross/Micro L4/2 Patient: Riri Alejandro [id number] (Continued) Specimen: [id number] Received: 04/29/23 (Continued) CPT Codes 70047 x 2 Specimen: [id number] Received: 04/29/23 Status: MAL Modi Num: [id number] Spec Type: Surgical Subm Dr: Jm Bell MD Tissues: A Colon Biopsy (RANDOM COLON BX) B Colon Biopsy (SIGMOID POLYP) Procedures: HE/4, Gross/Micro L4/2 Patient: Riri Alejandro [id number] (Continued) Signed (signature on file) Murtaza Erazo MD 05/03/23 1312 Normal [facility] Opiates [Presence] in Urine by Screen methodOrdered By: Jm Bell on 04-29-2023 Opiates Screen Ql (U) Negative Negative [facility] Phencyclidine Screen Ql (U)O rdered By: Jm Bell on 04-29-2023 Phencyclidine Ql (U) Negative Negative [facility] CBC with Diffon 02-15-2023 Abs. Basophil 0.06 k/uL Normal 0.00-0.20 [facility] Comment on above: Performed By: #### C P, CDP #### [facility] [address] [place] [address] Desulfurizer Hand: Jose A Pastor MD Abs.Imm.Granulocyte 0.04 k/uL Normal 0.00-0.30 [facility] Comment on above: Performed By: #### C P, CDP #### [address] [place], [facility]83 Desulfurizer Hand: Jose A Pastor MD Abs.Neutrophil (Seg) 9.14 k/uL High 1.50-8.10 [facility] Comment on above: Performed By: #### C P, CDP #### [address] [place], [place] [address] Desulfurizer Hand: Jose A Pastor MD Basophils/100 WBC (Bld) 1 % Normal 0-2 [facility] Comment on above: Performed By: #### C P, CDP #### [address] [place], [place] [address] Desulfurizer Hand: Jose A Pastor MD Eosinophils (Bld) [#/Vol] 0.12 10*3/uL Normal 0.00-0.44 [facility] Comment on above: Performed By: #### C P, CDP #### [address] [place], [place] [address] Desulfurizer Hand: Jose A Pastor MD Eosinophils/100 WBC (Bld) 1 % Normal 1-4 [facility] Comment on above: Performed By: #### C P, CDP #### [address] [place], [facility]83 Desulfurizer Hand: Jose A Pastor MD Erythrocyte distribution width (RBC) [Ratio] 15.1 % High 11.8-14.4 [facility] Comment on above: Performed By: #### C P, CDP #### [address] [place], [facility]83 Desulfurizer Hand: Jose A Pastor MD Hematocrit (Bld) [Volume fraction] 37.5 % Normal 36.3-47.1 [facility] Comment on above: Performed By: #### C P, CDP #### [facility] [address] [place] [address] Dr. [place], [place] [address] Desulfurizer Hand: Jose A Pastor MD Hemoglobin (Bld) [Mass/Vol] 12.2 g/dL Normal 11.9-15.1 [facility] Comment on above: Performed By: #### C P, CDP #### [address] [place], [facility]83 Desulfurizer Hand: Jose A Pastor MD Immature granulocytes/100 WBC (Bld) 0 % Normal 0 [facility] Comment on above: Performed By: #### C P, CDP #### [address] [place], [facility]83 Desulfurizer Hand: Jose A Pastor MD Lymphocytes (Bld) [#/Vol] 2.00 10*3/uL Normal 1.10-3.70 [facility] Comment on above: Performed By: #### C P, CDP #### [address] [place], [facility]83 Desulfurizer Hand: Jose A Pastor MD Lymphocytes/100 WBC (Bld) 17 % Low 24-43 [facility] Comment on above: Performed By: #### C P, CDP #### [address] [place], [facility]83 Desulfurizer Hand: Jose A Pastor MD MCH (RBC) [Entitic mass] 27.2 pg Normal 25.2-33.5 [facility] Comment on above: Performed By: #### C P, CDP #### [address] [place] [address] Desulfurizer Hand: Jose A Pastor MD MCHC (RBC) [Mass/Vol] 32.5 g/dL Normal 28.4-34.8 [facility] Comment on above: Performed By: #### C P, CDP #### [facility] [address] [place], [place] [id number] Desulfurizer Hand: Jose A Pastor MD MCV (RBC) [Entitic vol] 83.5 fL Normal 82.6-102.9 [facility] Comment on above: Performed By: #### C P, CDP #### [facility] [address] [place], [place] [id number] Desulfurizer Hand: Jose A Pastor MD Monocytes (Bld) [#/Vol] 0.78 10*3/uL Normal 0.10-1.20 [facility] Comment on above: Performed By: #### C P, CDP #### [address] [place], [place] [id number] Desulfurizer Hand: Jose A Pastor MD Monocytes/100 WBC (Bld) 6 % Normal 3-12 [facility] Comment on above: Performed By: #### C P, CDP #### [address] [place], [place] [address]783 Desulfurizer Hand: Jose A Pastor MD Neutrophil (Seg) 75 % High 36-65 [facility] Comment on above: Performed By: #### C P, CDP #### [address] [place], [place] [address] Desulfurizer Hand: Jose A Pastor MD NRBC Automated 0.0 per 100 WBC Normal 0.0 [facility] Comment on above: Performed By: #### C P, CDP #### [facility] [address] [place], [place] [address]83 Desulfurizer Hand: Jose A Pastor MD Platelet mean volume (Bld) [Entitic vol] 9.8 fL Normal 8.1-13.5 [facility] Comment on above: Performed By: #### C P, CDP #### [facility] [address] [place] [address] Desulfurizer Hand: Jose A Pastor MD Platelets (Bld) [#/Vol] 318 10*3/uL Normal 138-453 [facility] Comment on above: Performed By: #### C P, CDP #### [facility] [address] [place], [place] [address]483 Desulfurizer Hand: Jose A Pastor MD RBC (Bld) [#/Vol] 4.49 10*6/uL Normal 3.95-5.11 [facility] Comment on above: Performed By: #### C P, CDP #### [facility] [address] [place], [place] [address]83 Desulfurizer Hand: Jose A Pastor MD WBC (Bld) [#/Vol] 12.1 10*3/uL High 3.5-11.3 [facility] Comment on above: Performed By: #### C P, CDP #### [facility] [address] [place], [place] [address]83 Desulfurizer Hand: Jose A Pastor MD CT SOFT TISSUE [...] patterns consistent with tonsillitis. No peritonsillar abscess (MINES INSPECTOR) is identified. The hypopharynx, larynx, and upper esophagus are within normal limits. The major vessels of the neck enhance symmetrically. There is mild bilateral cervical lymphadenopathy with right level IIa lymph nodes measuring up to 16 mm in short axis, likely reactive. No acute osseous abnormality is visualized. IMPRESSION: Bilateral tonsillitis, without evidence of MINES INSPECTOR at this time. Mild bilateral cervical lymphadenopathy, likely reactive. RECOMMENDATIONS: Unavailable Interpreted by: Manny Jaimes MD Signed by: Manny Jaimes MD 02/15/23 Final result Normal [facility] Comp Metabolic Profon 2022 Albumin [Mass/Vol] 4.1 g/dL Normal 3.5-5.2 [facility] Comment on above: Performed By: #### C P, CDP #### [facility] [address] [place] [address] Desulfurizer Hand: Jose A Pastor MD Albumin/Glob Ratio 1.1 Normal 1.0-2.5 [facility] Comment on above: Performed By: #### C P, CDP #### [facility] [address] [place], [place] [address] Desulfurizer Hand: Jose A Pastor MD Alkaline Phos 45 U/L Normal 35-104 [facility] Comment on above: Performed By: #### C P, CDP #### [address] [place], [place] [address]83 Desulfurizer Hand: Jose A Pastor MD ALT [Catalytic activity/Vol] 10 U/L Normal 5-33 [facility] Comment on above: Performed By: #### C P, CDP #### [facility] [address] [place], [place] [address]483 Desulfurizer Hand: Jose A Pastor MD Anion gap [Moles/Vol] 11 mmol/L Normal 9-17 [facility] Comment on above: Performed By: #### C P, CDP #### [facility] [address] [place] [address] Desulfurizer Hand: Jose A Pastor MD AST [Catalytic activity/Vol] 11 U/L Normal <32 [facility] Comment on above: Performed By: #### C P, CDP #### [facility] [address] [place], [place] [address] Desulfurizer Hand: Jose A Pastor MD Bilirubin [Mass/Vol] 0.4 mg/dL Normal 0.3-1.2 [facility] Comment on above: Performed By: #### C P, CDP #### [facility] [address] [place], [place] [address] Desulfurizer Hand: Jose A Pastor MD BUN/CRE Ratio 23 High 9-20 [facility] Comment on above: Performed By: #### C P, CDP #### [facility] [address] [place], [place] [address]83 Desulfurizer Hand: Jose A Pastor MD Calcium [Mass/Vol] 9.6 mg/dL Normal 8.6-10.4 [facility] Comment on above: Performed By: #### C P, CDP #### [facility] [address] [place] [address] Dr. [place], [place] [address]83 Desulfurizer Hand: Jose A Pastor MD Chloride [Moles/Vol] 102 mmol/L Normal 98-107 [facility] Comment on above: Performed By: #### C P, CDP #### [facility] [address] [place] [address] Dr. [place], [place] [id number] Desulfurizer Hand: Jose A Pastor MD CO2 [Moles/Vol] 26 mmol/L Normal 20-31 [facility] Comment on above: Performed By: #### C P, CDP #### [facility] [address] [place], [place] [address] Desulfurizer Hand: Jose A Pastor MD Creatinine [Mass/Vol] 0.73 mg/dL Normal 0.50-0.90 [facility] Comment on above: Performed By: #### C P, CDP #### [facility] [address] [place], [place] [address] Desulfurizer Hand: Jose A Pastor MD GFR/1.73 sq M.predicted among non-blacks MDRD (S/P/Bld) [Vol rate/Area] mL/min/{1.73_m2} Normal >60 [facility] Comment on above: Result Comment: These results [...] Performed By: #### C P, CDP #### [facility] [address] [place] [address] [place] [address] Desulfurizer Hand: Jose A Pastor MD Glucose [Mass/Vol] 83 mg/dL Normal 70-99 [facility] Comment on above: Performed By: #### C P, CDP #### [address] [place] [address] Desulfurizer Hand: Jose A Pastor MD Potassium [Moles/Vol] 4.0 mmol/L Normal 3.7-5.3 [facility] Comment on above: Performed By: #### C P, CDP #### [address] [place] [address] Desulfurizer Hand: Jose A Pastor MD Protein [Mass/Vol] 7.7 g/dL Normal 6.4-8.3 [facility] Comment on above: Performed By: #### C P, CDP #### [facility] [address] [place] [address] [place] [address] Desulfurizer Hand: Jose A Pastor MD Sodium [Moles/Vol] 139 mmol/L Normal 135-144 [facility] Comment on above: Performed By: #### C P, CDP #### [address] [place] [address] Desulfurizer Hand: Jose A Pastor MD Urea nitrogen [Mass/Vol] 17 mg/dL Normal 6-20 [facility] Comment on above: Performed By: #### C P, CDP #### [facility] [address] [place], [place] [address] Desulfurizer Hand: Jose A Pastor MD Strep Gr A Direct Agon 02-15 Strep Gr A Direct Ag Positive Abnormal NEG [facility] Comment on above: Result Comment: for Group A Streptococci Performed By: #### R GPA #### [facility] [address] [place], [place] [address] Desulfurizer Hand: Jose A Pastor MD Source .THROAT SWAB Normal [facility] Comment on above: Performed By: #### R GPA #### [facility] [address] [place], [place] [address]83 Desulfurizer Hand: Jose A Pastor MD CBC AUTO DIFFon 01-30-2023 BASO # 0.1 103/ul Normal 0.0-0.1 [facility] Comment on above: Performed By: #### C BC #### [facility] [address] [place] [address] [address] Arpan Clark Basophils/100 WBC (Bld) 0.4 % Normal 0.2-2.0 [facility] Comment on above: Performed By: #### C BC #### [facility] [address] [place] [address] [address] Arpan Clark EO # 0.1 103/ul Normal 0.0-0.7 [facility] Comment on above: Performed By: #### C BC #### [facility] [address] [place] [address] [address] Arpan Clark Eosinophils/100 WBC (Bld) 0.7 % Critically low 0.9-7.0 [facility] Comment on above: Performed By: #### C BC #### [facility] [address] [place] [address] [address] Arpan Clark Erythrocyte distribution width (RBC) [Ratio] 15.2 % Critically high 11.0-15.0 [facility] Comment on above: Performed By: #### C BC #### [facility] [address] [place] [address] [address] Arpan Clark Hematocrit (Bld) [Volume fraction] 41.1 % Normal 36.0-48.0 [facility] Comment on above: Performed By: #### C BC #### [facility] [address] [place] [address] Dr. Arpan Clark Hemoglobin (Bld) [Mass/Vol] 13.4 g/dL Normal 12.0-16.0 [facility] Comment on above: Performed By: #### C BC #### [facility] [address] [place] [address] Dr. Arpan Clark IG # 0.05 10e3/ul Critically high 0.00-0.03 [facility] Comment on above: Performed By: #### C BC #### [facility] [address] [place] [address] Dr. Arpan Clark IG % 0.4 % Normal 0.0-0.5 [facility] Comment on above: Performed By: #### C BC #### [facility] [address] [place] [address] Dr. Arpan Clark LYMPH # 1.6 103/ul Normal 1.2-3.8 [facility] Comment on above: Performed By: #### C BC #### [facility] [address] [place] [address] Dr. Arpan Clark Lymphocytes/100 WBC (Bld) 12.0 % Critically low 20.5-60.0 [facility] Comment on above: Performed By: #### C BC #### [facility] [address] [place] [address] Dr. Arpan Clark MANUAL DIFF REQ NO Normal [facility] Comment on above: Performed By: #### C BC #### [facility] [address] [place] [address] Dr. Arpan Clark MCH (RBC) [Entitic mass] 27.2 pg Normal 26.7-34.0 [facility] Comment on above: Performed By: #### C BC #### [facility] [address] [place] [address] [address] Arpan Clark MCHC (RBC) [Mass/Vol] 32.6 g/dL Normal 29.9-35.2 [facility] Comment on above: Performed By: #### C BC #### [facility] [address] [place] [address] [address] Arpan Clark MCV (RBC) [Entitic vol] 83.5 fL Normal 81.0-99.0 [facility] Comment on above: Performed By: #### C BC #### [facility] [address] [place] [address] [address] Arpan Clark MONO # 1.3 103/ul Critically high 0.3-0.8 [facility] Comment on above: Performed By: #### C BC #### [facility] [address] [place] [address] Dr. Arpan Clark Monocytes/100 WBC (Bld) 9.5 % Normal 1.7-12.0 [facility] Comment on above: Performed By: #### C BC #### [facility] [address] [place] [address] [address] Arpan Clark NEUT # 10.2 103/ul Critically high 1.4-6.5 [facility] Comment on above: Performed By: #### C BC #### [facility] [address] [address] [address] Arpan Clark Neutrophils/100 WBC (Bld) 77.0 % Critically high 43.0-75.0 [facility] Comment on above: Performed By: #### C BC #### [facility] [address] [address] [address] Arpan Clark Platelet mean volume (Bld) [Entitic vol] 9.1 fL Critically low 9.5-13.5 [facility] Comment on above: Performed By: #### C BC #### [facility] [address] [address] [address] Arpan Clark PLT 288 103/ul Normal 150-450 [facility] Comment on above: Performed By: #### C BC #### [facility] [address] [place] [address] Dr. Arpan Clark RBC 4.92 106/ul Normal 4.20-5.40 [facility] Comment on above: Performed By: #### C BC #### [facility] [address] [place] [address] Dr. Arpan Clark WBC 13.2 103/ul Critically high 4.0-11.0 [facility] [facility] Comment on above: Performed By: #### C BC #### [facility] [address] [place] [address] Dr. Arpan Clark CULTURE BLOODon 01-30-2023 Microscopic examination of blood, culture Culture Observations: NO GROWTH AT 5 DAYS. Normal [facility] Comment on above: Performed By: #### B [id number] #### [facility] [address] [place] [address] Dr. Arpan Clark Microscopic examination of blood, culture Culture Observations: NO GROWTH AT 5 DAYS. Normal [facility] Comment on above: Performed By: #### B LDCX1 #### [facility] [address] [place] [address] Dr. Arpan Clark LACTATE/LACTIC ACIDon 2022 Lactate [Moles/Vol] 1.3 mmol/L Normal 0.4-2.0 [facility] Comment on above: Performed By: #### L ACT #### [facility] [address] [place] [address] Dr. Arpan Clark MONOon 01-30-2023 Monocytes (Bld) [#/Vol] Negative Normal NEGATIVE [facility] Comment on above: Performed By: #### M ELADIO #### [facility] [address] [place] [address] Dr. Arpan Clark PROF 14(COMP METB)on 023 Albumin [Mass/Vol] 4.0 g/dL Normal 3.4-5.0 [facility] Comment on above: Performed By: #### C MP #### [facility] [address] [place] [address] Dr. Arpan Clark Albumin/Globulin [Mass ratio] 0.8 {ratio} Normal [facility] Comment on above: Performed By: #### C MP #### [facility] [address] [address] [address] Arpan Clark ALP [Catalytic activity/Vol] 70 U/L Normal 46-116 [facility] Comment on above: Performed By: #### C MP #### [facility] [address] [address] [address] Arpan Clark ALT [Catalytic activity/Vol] 16 U/L Normal 14-59 [facility] Comment on above: Performed By: #### C MP #### [facility] [address] [address] [address] Arpan Clark Anion gap [Moles/Vol] 14.8 mmol/L Normal [facility] Comment on above: Performed By: #### C MP #### [facility] [address] [place] [address] Dr. Arpan Clark AST [Catalytic activity/Vol] 14 U/L Critically low 15-37 [facility] Comment on above: Performed By: #### C MP #### [facility] [address] [address] [address] Arpan Clark Bilirubin [Mass/Vol] 0.5 mg/dL Normal 0.2-1.0 [facility] Comment on above: Performed By: #### C MP #### [facility] [address] [place] [address] Dr. Arpan Clark Calcium [Mass/Vol] 9.3 mg/dL Normal 8.5-10.1 [facility] Comment on above: Performed By: #### C MP #### [facility] [address] [address] [address] Arpan Clark Chloride [Moles/Vol] 100 mmol/L Normal 98-107 [facility] Comment on above: Performed By: #### C MP #### [facility] [address] [address] [address] Arpan Clark CO2 [Moles/Vol] 23.8 mmol/L Normal 21.0-32.0 [facility] Comment on above: Performed By: #### C MP #### [facility] [address] [address] [address] Arpan Clark Creatinine [Mass/Vol] 0.88 mg/dL Normal 0.55-1.02 [facility] Comment on above: Performed By: #### C MP #### [facility] [address] [address] [address] Arpan Clark EGFR-AF JAPANESE >60 Normal >=60 [facility] Comment on above: Performed By: #### C MP #### [facility] [address] [address] [address] Arpan Clark EGFR-NON AF JAPANESE >60 Normal >=60 [facility] Comment on above: Performed By: #### C MP #### [facility] [address] [place] [address] Dr. Arpan Clark Globulin (S) [Mass/Vol] 4.8 g/dL Normal [facility] Comment on above: Performed By: #### C MP #### [facility] [address] [place] [address] Dr. Arpan Clark Glucose [Mass/Vol] 98 mg/dL Normal 74-106 [facility] Comment on above: Performed By: #### C MP #### [facility] [address] [place] [address] Dr. Arpan Clark Potassium [Moles/Vol] 3.6 mmol/L Normal 3.5-5.1 [facility] Comment on above: Performed By: #### C MP #### [facility] [address] [place] [address] Dr. Arpan Clark Protein [Mass/Vol] 8.8 g/dL Critically high 6.4-8.2 [facility] Comment on above: Performed By: #### C MP #### [facility] [address] [place] [address] Dr. Arpan Clark Sodium [Moles/Vol] 135 mmol/L Critically low 136-145 [facility] Comment on above: Performed By: #### C MP #### [facility] [address] [place] [address] Dr. Arpan Clark Urea nitrogen [Mass/Vol] 21.0 mg/dL Critically high 7.0-18.0 [facility] Comment on above: Performed By: #### C MP #### [facility] [address] [address] [address] Arpan Clark Urea nitrogen/Creatinine [Mass ratio] 23.9 mg/mg Normal [facility] Comment on above: Performed By: #### C MP #### [facility] [address] [address] [address] Arpan Clark STREPT SCREENon 01-30-2023 STREP SCREEN A Positive Abnormal NEGATIVE [facility] Comment on above: Performed By: #### S SCRN #### [facility] [address] [address] [address] Arpan Clark XR CHEST 2 Von [...] BRI GREER Date: 2022-11-05 14:15 Normal [facility] Covid-19 PCR (CVDTB)on 10-09 SARS-CoV-2 (COVID-19) RNA MAG+probe Ql (Unsp spec) Not detected Normal NOT DETECTED [facility] Comment on above: Result Comment: This test is not yet approved or cleared by the [place] FDA. When there are no FDA-approved or cleared tests available, and other criteria are met, FDA can make tests available under an emergency access mechanism called an Emergency Use Authorization (EUA). The EUA for this test is supported by the Merchandise Team Manager of Health and Human Service's (HHS's) declaration [...] SARS-CoV-2. Performed By: #### C VDTBH #### [facility] [address] [address] [address] Arpan Clark INFLUENZA A AND B AGon 10-28 INFLUENZA A AG Negative Normal NEGATIVE SEE COMMENT [facility] Comment on above: Performed By: #### I NFLUAB #### [facility] [address] [address] [address] Arpan Clark INFLUENZA B AG Negative Normal NEGATIVE SEE COMMENT [facility] Comment on above: Performed By: #### I NFLUAB #### [facility] [address] [address] [address] Arpan Clark INTERNAL CONTROLS Within Normal Limits Normal Wi thin Normal Limits [facility] Comment on above: Performed By: #### I NFLUAB #### [facility] [address] [address] [address] Arpan Clark CBCon 05-28-2020 Erythrocyte distribution width (RBC) [Ratio] 19.3 % High 11.8 - 14.4 % [place] Hematocrit (Bld) [Volume fraction] 30.4 % Low 36.3 - 47.1 % [place] Hemoglobin (Bld) [Mass/Vol] 9.2 g/dL Low 11.9 - 15.1 g/dL [place] Interpretation and review of laboratory results Abnormal [place] MCH (RBC) [Entitic mass] 22.6 pg Low 25.2 - 33.5 pg [place] MCHC (RBC) [Mass/Vol] 30.3 g/dL 28.4 - 34.8 g/dL [place] MCV (RBC) [Entitic vol] 74.7 fL Low 82.6 - 102.9 fL [place] Platelet mean volume (Bld) [Entitic vol] 10.1 fL 8.1 - 13.5 fL [place] Platelets (Bld) [#/Vol] 283 10*3/uL [place] RBC (Bld) [#/Vol] 4.07 10*6/uL 3.95 - 5.1 1 m/uL [place] WBC (Bld) [#/Vol] 0.0 10*3/uL 0.0 per 10 0 WBC [place] WBC (Bld) [#/Vol] 13.1 10*3/uL [place] Chlamydia trachomatis DNA, U rineon 05-28-2020 C. trachomatis DNA ,Urine Negative NEGATIVE [place] Comment on above: CHLAMYDIA TRACHOMATI S [...] alternative nucleic acid target. Specimen Description .URINE [place] CBC auto differentialon 05-09 Basophils (Bld) [#/Vol] 0.03 10*3/uL [place] Basophils/100 WBC (Bld) 0 % 0 - 2 % [place] Differential Type NOT REPORTED [place] Eosinophils (Bld) [#/Vol] 0.31 10*3/uL [place] Eosinophils/100 WBC (Bld) 3 % 1 - 4 % [place] Erythrocyte distribution width (RBC) [Ratio] 19.0 % High 11.8 - 14.4 % [place] Hematocrit (Bld) [Volume fraction] 32.8 % Low 36.3 - 47.1 % [place] Hemoglobin (Bld) [Mass/Vol] 9.8 g/dL Low 11.9 - 15.1 g/dL [place] Immature granulocytes (Bld) [#/Vol] 0.07 10*3/uL [place] Immature granulocytes (Bld) [#/Vol] 1 % High 0 [place] Interpretation and review of laboratory results Abnormal [place] Lymphocytes (Bld) [#/Vol] 1.62 10*3/uL [place] Lymphocytes/100 WBC (Bld) 17 % Low 24 - 43 % [place] MCH (RBC) [Entitic mass] 22.5 pg Low 25.2 - 33.5 pg [place] MCHC (RBC) [Mass/Vol] 29.9 g/dL 28.4 - 34.8 g/dL [place] MCV (RBC) [Entitic vol] 75.2 fL Low 82.6 - 102.9 fL [place] Monocytes (Bld) [#/Vol] 0.75 10*3/uL [place] Monocytes/100 WBC (Bld) 8 % 3 - 12 % [place] Platelet mean volume (Bld) [Entitic vol] 9.9 fL 8.1 - 13.5 fL [place] Platelets (Bld) [#/Vol] NOT REPORTED [place] Platelets (Bld) [#/Vol] 324 10*3/uL [place] RBC (Bld) [#/Vol] 4.36 10*6/uL 3.95 - 5.1 1 m/uL [place] RBC morphology finding Nom (Bld) NOT REPORTED [place] Segmented neutrophils/100 WBC (Bld) 71 % High 36 - 65 % [place] Segs Absolute 6.79 [place] WBC (Bld) [#/Vol] 0.0 10*3/uL 0.0 per 10 0 WBC [place] WBC (Bld) [#/Vol] 9.6 10*3/uL [place] WBC Morphology NOT REPORTED [place] DRUG SCREEN MULTI URINEon Amphetamine Screen, Ur Negative NEGATIVE [place] Barbiturate Screen, Ur Negative NEGATIVE [place] Benzodiazepine Screen, Urine Negative NEGATIVE [place] Buprenorphine Urine Negative NEGATIVE [place] Cannabinoid Scrn, Ur Negative NEGATIVE [facility], [place] Cocaine Metabolite, Urine Negative NEGATIVE [facility], [place] MDMA, Urine NOT REPORTED NEGATIVE [place] Methadone Screen, Urine Negative NEGATIVE [facility], [place] Methamphetamine, Urine Negative NEGATIVE [place] Opiates, Urine Negative NEGATIVE [place] Oxycodone Screen, Ur Negative NEGATIVE [place] Phencyclidine, Urine Negative NEGATIVE [place] Propoxyphene, Urine Negative NEGATIVE [place] Test Information NOT REPORTED [place] Tricyclic Antidepressants, Urine Negative NEGATIVE [place] Comment on above: Drug screen results are to be used for medical purposes only. All positive results are unconfirmed. Testing for employment or legal uses should be sent to a reference laboratory for confirmation. GBS, External Resulton 04-30 GBS, External Result Negative [place] Comment on above: confirmed with Ion bird RN Urinalysison 04-23-2020 Bil[facility] U[facility] [place] Color, UA YELLOW YELLOW [place] Glucose, Ur Negative NEGATIVE [place] Interpretation and review of laboratory results Abnormal [place] Ketones Ql (U) Negative NEGATIVE [place] Leukocyte esterase Test strip Ql (U) Negative NEGATIVE [place] Nitrite, Urine Negative NEGATIVE [place] pH, UA 6.0 [place] Protein (U) [Mass/Vol] Negative NEGATIVE [place] Specific [place], UA >1.030 High [place] Turbidity UA CLEAR CLEAR [place] Urinalysis Comments NOT REPORTED [place] Urine Hgb Negative NEGATIVE [place] Urobilinogen, Urine Normal Normal [place] ABO, External Resulton 10-26 ABO, External Result A [place] Comment on above: confirmed with Ion bird RN C. Trachomatis, External Res ulton 10-26-2019 C. Trachomatis, External Result Positive [place] Comment on above: confirmed with Ion bird RN HIV, External Resulton 10-26 HIV, External Result NON-REACTIVE [facility], [place] Comment on above: confirmed with Ion bird RN Hepatitis B, External Result on 10-26-2019 Hep B, External Result NON-REACTIVE [place] Comment on above: confirmed with Ion bird RN N. Gonorrhoeae, External Res ulton 10-26-2019 N. Gonorrhoeae, External Result Negative [place] Comment on above: confirmed with Ion bird RN RPR, External Labon 10-26-20 19 RPR, External Result NON-REACTIVE [facility], [place] Comment on above: confirmed with Ion bird RN Rh Factor, External Resulton 10-26-2019 Rh Factor, External Result Positive [place] Comment on above: confirmed with Ion bird RN Rubella Titer, External Resu lton 10-26-2019 Rubella Titer, External Result IMMUNE [place] Comment on above: confirmed with Ion bird RN Progress Noteon 01-12-2018 HIM IP Note OR Inspector Exhaust Emissions Normal [facility] Vital Signs Date Time Vital Sign Value Performing Clinician Facility 12-29-2023 11:49-0500 Body height 160 cm [facility] 1 [facility] 12-29-2023 11:49-0500 Body mass index (BMI) [Ratio] 38.97 kg/m2 [facility] 1 [facility] 12-29-2023 11:49-0500 Body weight 99.79 kg [facility] [address] [place] [address] 12-22-2023 14:45-0500 Body mass index (BMI) [Ratio] 39.15 kg/m2 Myriam Flormeli [facility] Work Phone: [facility] 12-22-2023 14:45-0500 Body weight 100.25 kg Ymriam Cory [facility] Work Phone: [facility] 12-22-2023 14:45-0500 Diastolic blood pressure 80 mm[Hg] Myriam Cory [facility] Work Phone: [facility] 02-14-2024 14:45-0500 Systolic blood pressure 120 mm[Hg] Myriam Ray JOHNNaeem Work Phone: [facility] 12-07-2023 11:22-0500 Body height 160 cm Naomie Thrasher MD Work Phone: [facility] 12-07-2023 11:22-0500 Body mass index (BMI) [Ratio] 36.67 kg/m2 Naomie Thrasher MD Work Phone: [facility] 12-07-2023 11:22-0500 Body weight 93.89 kg Naomie Thrasher MD Work Phone: [facility] 12-07-2023 11:22-0500 Diastolic blood pressure 79 mm[Hg] Naomie Thrasher MD Work Phone: [facility] 12-07-2023 11:22-0500 Heart rate 75 /min Naomie Thrasher MD Work Phone: [facility] [employer] 12-07-2023 11:22-0500 Systolic blood pressure 137 mm[Hg] Naomie Thrasher MD Work Phone: [facility] [employer] 07-29-2023 15:15-0400 Body height 160.66 cm Jm Bell Other [employer] (ABAM) Other 07-29-2023 15:15-0400 Body mass index (BMI) [Ratio] 37.78 kg/m2 Jm Bell Other [employer] (ABAM) Other 07-29-2023 15:15-0400 Body weight 97.52 kg Jm Bell Other [employer] (ABAM) Other 07-29-2023 15:15-0400 Diastolic blood pressure 76 mm[Hg] Jm Bell Other [employer] (ABAM) Other 07-29-2023 15:15-0400 Systolic blood pressure 110 mm[Hg] Jm Bell Other [employer] ([facility]) Other 04-29-2023 14:13-0400 Diastolic blood pressure 91 mm[Hg] [employer] Maegan Lara Work Phone: [facility] 04-29-2023 14:13-0400 Heart rate 75 /min [employer] Maegan Lara Work Phone: [facility] 04-29-2023 14:13-0400 Respiratory rate 16 /min [employer] Maegan Lara Work Phone: [facility] 04-29-2023 14:13-0400 SaO2% (BldA) [Mass fraction] 99 % [employer] Maegan Lara Work Phone: [facility] 04-29-2023 14:13-0400 Systolic blood pressure 125 mm[Hg] [employer] ADVISOR TRA[employer]EE[employer] Maegan Lara Work Phone: [facility] 04-29-2023 12:23-0400 Body height 160.02 cm [employer]ANCIAL ADVISOR [employer]EE[employer] Maegan Lara Work Phone: [facility] 04-29-2023 12:23-0400 Body temperature 99.2 [degF] [employer] TRA[employer]EE[employer] Maegan Lara Work Phone: [facility] 04-29-2023 12:23-0400 Body weight 90.71 kg [employer]EE[employer] Maegan Lara Work Phone: [facility] 02-09-2023 14:15-0400 Body height 160.66 cm Jm Bell Other [employer] (ABAM) Other 02-09-2023 14:15-0400 Body mass index (BMI) [Ratio] 33.39 kg/m2 Jm Bell Other [employer] ([facility]AM) Other 02-09-2023 14:15-0400 Body weight 86.18 kg Jm Bell Other [employer] (ABAM) Other 02-09-2023 14:15-0400 Diastolic blood pressure 101 mm[Hg] Jm Bell Other [employer] (ABAM) Other 02-09-2023 14:15-0400 Systolic blood pressure 144 mm[Hg] Jm Bell Other [employer] (ABAM) Other 12-30-2021 15:30-0500 Body height 160.66 cm Jm Bell Other [employer] (ABAM) Other 12-30-2021 15:30-0500 Body mass index (BMI) [Ratio] 35.85 kg/m2 Jm Bell Other [employer] (ABAM) Other 12-30-2021 15:30-0500 Body weight 92.53 kg Jm Bell Other [employer] (ABAM) Other 05-29-2020 07:10-0400 Body Temperature 98.2 [degF] Myriam [facility] 05-29-2020 07:10-0400 BP Diastolic 55 mm[Hg] [facility] [place] 05-29-2020 07:10-0400 BP Systolic 105 mm[Hg] [facility] [place] 05-29-2020 07:10-0400 Pulse (Heart Rate) 70 /min [facility] [place] 05-29-2020 07:10-0400 Respiratory Rate 16 /min [facility] 05-28-2020 00:11-0400 Pulse Oximetry 99 % [facility] [place] 05-27-2020 08:23-0400 BMI (Body Mass Index) 36.67 kg/m2 [facility] [place] 05-27-2020 08:23-0400 Body weight 93.89 kg [facility] [place] 05-27-2020 08:23-0400 Height 160 cm Myriam Ray [facility] , [place] 05-22-2020 15:33-0400 Body Temperature 98.01 [degF] [facility] [place] 05-22-2020 15:33-0400 BP Diastolic 73 mm[Hg] Felecia [facility] , [place] 05-22-2020 15:33-0400 BP Systolic 118 mm[Hg] Felecia [facility] , [place] 05-22-2020 15:33-0400 Pulse (Heart Rate) 111 /min Felecia [facility], [place] 05-22-2020 15:33-0400 Respiratory Rate 16 /min [facility], [place] 04-23-2020 21:26-0400 BMI (Body Mass Index) 33.66 kg/m2 Felecia Carpenter [facility], [place] 04-23-2020 21:26-0400 Body weight 86.18 kg Felecia Carpenter [facility] , [place] 04-23-2020 21:26-0400 Height 160 cm Felecia Carpenter [facility] , [place] 04-23-2020 20:56-0400 Body Temperature 98.2 [degF] Felecia Carpenter [facility], [place] 04-23-2020 20:56-0400 BP Diastolic 68 mm[Hg] Felecia Carpenter [facility] , [place] 04-23-2020 20:56-0400 BP Systolic 120 mm[Hg] Felecia Carpenter [facility] , [place] 04-23-2020 20:56-0400 Pulse (Heart Rate) 90 /min Feleciadayanna Carpenter [facility], [place] 04-23-2020 20:56-0400 Respiratory Rate 18 /min Felecia Carpenter [facility], [place] 08-23-2019 10:15-0400 BP Diastolic 71 mm[Hg] Raman Barnard [facility] , [place] 08-23-2019 10:15-0400 BP Systolic 105 mm[Hg] Raman Barnard [facility] , [place] 08-23-2019 10:15-0400 Pulse (Heart Rate) 74 /min Raman Barnard [facility], [place] 08-23-2019 10:15-0400 Pulse Oximetry 98 % Raman Barnard [facility] , [place] 08-23-2019 10:15-0400 Respiratory Rate 16 /min [facility], [place] 08-23-2019 09:55-0400 Body Temperature 97.11 [degF] Raman Allison [facility], [place] 08-23-2019 08:50-0400 BMI (Body Mass Index) 28.37 kg/m2 Raman Barnard [facility], [place] 08-23-2019 08:50-0400 Body weight 74.39 kg Raman Barnard [facility] , [place] 08-23-2019 08:50-0400 Height 161.9 cm Raman Barnard [facility] , [place] Encounters Encounter Date Encounter Type Care Provider Facility Start: 01-05-2024 End: 01-05-2024 Evaluation and management of inpatient [facility] Start: 01-05-2024 End: 01-05-2024 [facility] Start: 01-02-2024 Telephone encounter Hugo Friedman MD Work Phone: [facility] Start: 12-29-2023 End: 12-29-[address] [facility] Phone Call Provider 1 [facility] Start: 12-29-2023 End: 12-29-2023 Evaluation and management of inpatient [facility] Start: 12-22-2023 End: 12-23-2023 ambulatory MYRIAM [...] Start: 12-10-2023 Telephone encounter Angy Recinos RN [facility] Comment on above: Surgical Or [...] 07-29-2023 End: 07-29-2023 ambulatory Jm Bell Other [employer] [facility] [employer] [facility] (ABAM) Other Start: 07-29-2023 Office outpatient vi sit 15 minutes Jm Bell [facility] Start: 04-29-2023 End: 04-29-2023 ambulatory Maegan Lara Facility:[facility] Start: 04-29-2023 End: 04-29-2023 Admission to same day surgery center [employer] Maegan Lara Work Phone: [facility] Work Phone: Start: 04-29-2023 End: 04-29-2023 ambulatory [employer] Maegan Lara Work Phone: [facility] Work Phone: Start: 03-17-2023 End: 03-18-2023 ambulatory MAEGANFARHAD GONGMER Facility:[facility] Start: 03-04-2023 Telephone encounter Jm pfeiffer [facility] Start: 03-04-2023 End: 03-05-2023 ambulatory MAEGAN [facility] Other Start: 02-22-2023 End: 02-22-2023 ambulatory Jm Bell Other [facility] [employer] [facility] ([facility]AM) Other Start: 02-22-2023 Telephone encounter Jm pfeiffer [facility] Start: 02-18-2023 End: 02-18-2023 ambulatory Jm Bell Other [facility] [employer] [facility] ([facility]) Other Start: 02-18-2023 Telephone encounter Jm pfeiffer [facility] Start: 02-15-2023 [facility] Start: 02-09-2023 End: 02-09-2023 ambulatory Jm Bell Other [facility] [employer] [facility] ([facility]) Other Start: 02-09-2023 Office outpatient vi sit 15 minutes Jm Bell [facility] Start: 01-30-2023 End: 01-30-2023 ambulatory MAEGAN GONGMER Facility:[facility] Start: 11-05-2022 End: 11-05-2022 ambulatory MAEGAN LARA Facility:[facility] Start: 10-28-2022 End: 10-28-2022 ambulatory MAEGANFARHAD GONGMER Facility:[facility] Start: 10-27-2022 End: 10-27-2022 ambulatory Jm Bell Other [facility] [employer] [facility] ([facility]AM) Other Start: 10-27-2022 Telephone encounter Jm pfeiffer [facility] Start: 04-08-2022 End: 04-08-2022 ambulatory Jm Bell Other [facility] [employer] [facility] (ABAM) Other Start: 04-08-2022 Telephone encounter Jm pfeiffer [facility] Start: 02-06-2022 End: 02-06-2022 ambulatory Jm Bell Other [facility] [employer] [facility] ([facility]AM) Other Start: 02-06-2022 Telephone encounter Jm Shin [facility] Start: 12-30-2021 End: 12-30-2021 ambulatory Jm Bell Other [employer] ([facility]AM) Other Start: 12-30-2021 Office outpatient vi sit [...] assessment Angy Recinos RN Start: 04-29-2023 Colonoscopy [employer] Buddy Lara Work Phone: Start: 05-28-2020 Blood [...] neoplasm of colon Colon cancer screen colon[place] Start: 08-18-2027 Colon cancer screen colonoscopy Colon cancer screen colonoscopy [place] Start: 05-20-2027 DTaP,Tdap and Td Vaccines (7 - Td or Tdap) DTaP,Tdap and Td Vaccines (7 - Td or Tdap) [facility] Start: 05-20-2027 DTaP/Tdap/Td vaccine (7 - Td) DTaP/Tdap/Td vaccine (7 - Td) [place] Start: 01-05-2025 Adult BMI Screening Adult BMI Screen ing [facility] Start: 01-05-2025 Tobacco Screening Tobacco Screening [facility] Start: 12-29-2024 Adult BMI Screening Adult BMI Screen ing [facility] Start: 12-29-2024 Tobacco Screening Tobacco Screening [facility] Start: 08-12-2024 Tobacco Screening Tobacco Screening [facility] Start: 08-11-2024 Adult BMI Screening Adult BMI Screen ing [facility] Start: 06-09-2024 Depression Screening Depression Scre ening [facility] Start: 03-07-2024 End: 03-07-2024 Patient encounter procedure 03/07/2024 10:00 AM EDT Office Visit [facility] [address] [facility] [address] [place] [address] Naomie Thrasher MD [address] [place] [address] [facility] Start: 02-01-2024 End: 02-01-2024 Patient encounter procedure 02/01/2024 9:45 AM EDT Office Visit [facility] [address] [place] [address], [place] [address] [place] [address] [place] [address] [place] [address] [facility] Start: 01-05-2024 End: 01-05-2024 Adenoidectomy primary age 14/> ADENOIDECTOMY Tonsillar hypertrophy Sleep apnea, unspecified type Recurrent streptococcal tonsillitis Snoring 01/05/2024 7:30 AM EST [facility] Start: 01-05-2024 End: 01-05-2024 Admission to same day surgery center 01/05/2024 7:30 AM EST - 01/05/2024 8:45 AM EST Surgery [facility] Surgery [address] [place] [phone] [place] [address] [place] [id number] TONSILLECTOMY [31689 (CPT )] [facility] Comment on above: TONSILLECTOMY [95475 (CPT )] Start: 01-05-2024 Subsequent hospital visit by physician 01/05/2024 7:30 AM EST Hospital Encounter [address] [phone] Hugo Friedman MD [address] [facility] [place] [address] [facility] Start: 01-05-2024 End: 01-05-2024 Tonsillectomy primary/secondary age 14/> TONSILLECTOMY Tonsillar hypertrophy Sleep apnea, unspecified type Recurrent streptococcal tonsillitis Snoring 01/05/2024 7:30 AM EST [facility] Start: 12-29-2023 End: 12-29-2023 Admission to establishment 12/29/2023 3:15 PM EST Support Visit [facility] Pre-Admission Clinic [facility] [address] [place], [place] [address] [address] [facility] Pre-Admission [facility] Start: 07-09-2023 Influenza vaccination Influenza Vacc ine [facility] Start: 04-29-2023 [facility] Start: 05-27-2021 Screening for Chlamy robbie trachomatis Chlamydia screen [place], [place] Start: 07-23-2020 End: 07-23-2020 Office Visit 07/23/2020 Office Visit Gastroenterology Raman Barnard MD [address] [place] [address] [place] [address] [phone] [facility] Start: 07-09-2020 Influenza vaccination [place], [place] Start: 01-16-2020 End: 01-16-2020 Office Visit 01/16/2020 Office Visit Gastroenterology Raman Barnard MD [address] [place] [address] [place] [address] [facility] Start: 07-09-2019 Influenza vaccination Flu vaccine (# 1) [place] Start: 05-19-2019 Chlamydia screen Chlamydia screen [place], [place] Start: 05-19-2019 Screening for Chlamy robbie trachomatis Chlamydia screen [place] Start: 2018 Cervical cancer screen Cervical canc er screen [place] Start: 2018 Screening for malign ant neoplasm of cervix [facility] Start: 2016 DTaP/Tdap/Td vaccine (1 - Tdap) DTaP/Tdap/Td vaccine (1 - Tdap) [place] Start: 2015 Adult BMI Follow Up Plan Adult BMI Follow Up Plan [facility] Start: 2012 HPV vaccine (1 - Fem aramis 3-dose series) HPV vaccine (1 - Female 3-dose series) [place] Start: 2010 Varicella Vaccine (1 of 2 - 13+ 2-dose series) Varicella Vaccine (1 of 2 - 13+ 2-dose series) [place] Start: 2008 HPV vaccine (1 - 2-d ose series) HPV vaccine (1 - 2-dose series) [place] Start: 2003 Pneumococcal 0-64 ye ars Vaccine (1 of 3 - PCV13) Pneumococcal 0-64 years Vaccine (1 of 3 - PCV13) [place] Start: 2001 Varicella vaccine (2 of 2 - 2-dose childhood series) Varicella vaccine (2 of 2 - 2-dose childhood series) [place] End: 04-23-2020 Bacteria identified Cx Nom (U) Urine culture Microbiology Routine One Time for 1 Occurrences starting 04/23/2020 until 04/23/2020 [place] Comment on above: One Time for 1 Occur rences starting 04/23/2020 until 04/23/2020 Bacteria identified Cx Nom (U) Urine culture Microbiology [employer] Label Print 04/23/2020 8:50 PM EDT [place] nonstress test nonst ress test OB Routine Daily until discontinued starting 04/24/2020 [place] Comment on above: Daily until disconti nued starting 04/24/2020 Nonrebreather mask oxygen Nonrebreather mask oxygen Respiratory Care Routine As directed - RT (PRN) until discontinued starting 04/23/2020 [place] Comment on above: As directed - RT (ME N) until discontinued starting 04/23/2020 Patient Education Colon polyps [facility] Work Phone: End: 08-23-2019 , Urine , Urine Lab STAT One Time for 1 Occurrences starting 08/23/2019 until 08/23/2019 [place] Comment on above: One Time for 1 Occur rences starting 08/23/2019 until 08/23/2019 Surgical Pathology Surgical Path ology Lab Routine ONE TIME for 1 Occurrences starting 08/23/2019 [place] Comment on above: ONE TIME for 1 Occur rences starting 08/23/2019 End: 04-23-2020 SVE SVE Point of Care Testing Routine One Time for 1 Occurrences starting 04/23/2020 until 04/23/2020 [place] Comment on above: One Time for 1 Occur rences starting 04/23/2020 until 04/23/2020 Immunizations Immunization Date Immunization Notes Care Provider Angel vasquez 11-15-2020 influenza, injectabl e, quadrivalent, preservative free Angy Recinos RN [facility] 11-15-2020 influenza virus vacc ine, unspecified formulation Angy Recinos RN [facility] 09-13-2019 influenza, injectabl e, quadrivalent, contains preservative Angy Recinos RN [facility] 09-05-2018 influenza, injectabl e, quadrivalent, contains preservative Angy Recinos RN [facility] 09-02-2017 influenza, injectabl e, quadrivalent, contains preservative Angy Recinos RN [facility] 05-20-2017 tetanus toxoid, redu lc diphtheria toxoid, and acellular pertussis vaccine, adsorbed Angy Recinos RN [facility] 09-09-2016 influenza, injectabl e, quadrivalent, preservative free Angy Recinos RN [facility] 09-02-2015 tuberculin skin test ; purified protein derivative solution, intradermal Raman Barnard [place] 08-06-2015 influenza, seasonal, injectable, preservative free Angy Recinos RN [facility] 08-21-2014 influenza, seasonal, injectable, preservative free Angy Recinos RN [facility] 09-12-2013 influenza, seasonal, injectable, preservative free Angy Recinos RN [facility] 09-15-2012 influenza, seasonal, injectable, preservative free Angy Recinos RN [facility] 09-18-2011 influenza virus vacc ine, whole virus Angy Recinos RN [facility] 08-18-2010 influenza virus vacc ine, whole virus Angy Recinos RN [facility] 06-27-2010 hepatitis B vaccine, pediatric or pediatric/adolescent dosage Angy Recinos RN [facility] 06-27-2010 tetanus toxoid, redu lc diphtheria toxoid, and acellular pertussis vaccine, adsorbed Angy Recinos RN [facility] 02-28-2003 diphtheria, tetanus toxoids and acellular pertussis vaccine, unspecified formulation Angy Recinos RN [facility] 02-28-2003 measles, mumps and rubella virus vaccine Angy Recinos RN [facility] 02-28-2003 poliovirus vaccine, inactivated Angy Recinos RN [facility] 01-20-1999 diphtheria, tetanus toxoids and acellular pertussis vaccine, unspecified formulation Angy Recinos RN [facility] 01-20-1999 haemophilus influenz ae type b vaccine, HbOC conjugate Angy Recinos RN [facility] 12-16-1998 measles, mumps and rubella virus vaccine Angy Recinos RN [facility] 12-16-1998 varicella virus vaccine Angy Recinos RN [facility] 05-16-1998 diphtheria, tetanus toxoids and acellular pertussis vaccine, unspecified formulation Angy Recinos RN [facility] 05-16-1998 haemophilus influenz ae type b vaccine, conjugate unspecified formulation Angy Recinos RN [facility] 05-16-1998 trivalent poliovirus vaccine, live, oral Angy Recinos RN [facility] 03-14-1998 hepatitis B vaccine, pediatric or pediatric/adolescent dosage Angy Recinos RN [facility] 02-05-1998 diphtheria, tetanus toxoids and acellular pertussis vaccine, unspecified formulation Angy Recinos RN [facility] 02-05-1998 haemophilus influenz ae type b vaccine, conjugate unspecified formulation Angy Recinos [facility] 02-05-1998 poliovirus vaccine, inactivated Angy Recinos RN [facility] 1997 hepatitis B vaccine, pediatric or pediatric/adolescent dosage Angy Recinos [facility] Payers Date Payer Category Payer Self-pay 2022 Medicaid [id number] 2022 Medicaid [id number] 2019 Unknown BCBS BCBS OUT OF STATE [id number] 2019-Present [address] [place] [address] [id number] 2019 Unknown [id number] [id number] .[id number] 2019 Unknown BCBS BCBS OUT OF STATE xxxxxxxxxxxxxx 2019-Present [address] [place] [address] xxxxxxxxxxxxxx [id number] .[id number] 2019 Unknown BCBS BCBS OUT OF STATE [id number] 2019-Present [address] [place] [address] [id number] .[id number] 2015 Unknown BC[place] - [place] P PO xxxxxxxxxxxx 2015-Present [address] [place] [address] xxxxxxxxxxxx [id number] .[id number] 1997 Unknown [id number] 2.16.840.1.645267.3.579.2.173 1997 Unknown [id number] 2.16.840.1.925097.3.579.2.593 1997 Unknown [id number] 2.16.840.1.561322.3.579.2.593 1997 Unknown [id number] 2.16.840.1.587966.3.579.2.593 1997 Unknown [id number] 2.16.840.1.139476.3.579.2.593 1997 Unknown [id number] 2.16.840.1.384839.3.579.2.593 1997 Unknown [id number] 2.16.840.1.020487.3.579.2.125 9 1997 Unknown [id number] 2.16.840.1.012999.3.579.2.125 9 1997 Unknown [id number] 2.16.840.1.192866.3.579.2.125 9 1997 Unknown [id number] 2.16.840.1.746972.3.579.2.125 9 1997 Unknown [id number] 2.16.840.1.679588.3.579.2.125 9 1997 Unknown [id number] 2.16.840.1.462795.3.579.2.125 9 1997 Unknown [id number] 2.16.840.1.598370.3.579.2.128 6 1997 Unknown [id number] 2.16.840.1.931426.3.579.2.128 6 1997 Unknown [id number] 2.16.840.1.517598.3.579.2.128 6 1997 Unknown [id number] 2.16.840.1.372105.3.579.2.128 6 1959 Unknown [id number] 2.16.840.1.749065.19 1959 Unknown [id number] Unknown [facility] [id number] Unknown [id number] [id number] Social History Date Type Detail Facility Start: 08-23-2019 End: 12-16-2015 Tobacco smoking status NCIS Current some day smoker [place] Start: 08-23-2019 End: 12-19-2020 Alcohol intake No [facility] Start: 01-10-2019 Tobacco Comment a pack lasts a month or 2 [place] Start: 1997 Sex Assigned At Not on file M [place] Start: 04-23-2020 End: 07-15-2023 Tobacco smoking status NHIS Former smoker [facility] End: 09-08-2019 History of tobacco use Current smoker [place] Start: 04-23-2020 End: 05-28-2020 Alcohol intake Current non-drinker of alcohol (finding) [place] Start: 09-10-2019 Estefany [place] Exposure to SARS-CoV -2 (event) Unable to assess [place] Start: 05-28-2020 End: 07-15-2023 Tobacco use and exposure Never used [place] Exposure to SARS-CoV -2 (event) Not sure [place] Start: 1997 Sex Assigned At Female F [facility] End: 11-08-2018 History of tobacco use Cigarette Smoker [facility] Start: 08-12-2023 End: 12-29-2023 Alcohol intake Current drinker of alcohol (finding) [facility] Start: 12-19-2020 End: 08-12-2023 History of Social function [facility] Adolescent depressio n screening assessment 12 [facility] Start: 06-14-2023 Tobacco Comment Quit age 18-19 -smoked 1-2 years, 1 pack lasted 3 months [facility] Start: 07-15-2023 Alcohol Comment yearly [facility] Start: 06-03-2023 End: 12-22-2023 Tobacco smoking status NHIS Never smoked tobacco [facility] Start: 06-03-2023 Alcohol Comment Less than lynette hly. caffeine: more than 4 cups per day [facility] Start: 01-20-2023 Gender identity Identifies as [...] op pain meds documented in this encounter [facility] 01-02-2024 Telephone encounter Note Post op pain meds [facility] 12-29-2023 Instructions Formatting of th is note might be different from the original. Your surgery/procedure is scheduled at [facility] on January 05 at 730 Arrival Time 530 [facility] Address: [address] [place], [place] [address] Park in P1 Parking lot located on [facility]. Report to the Entrance B. Check in at the information desk the surgery. The waiting room located on the second floor. If you have any questions prior to surgery, please call Pre-Admission Clinic at [phone] between 7:30 am and 4:30 pm Wednesday through Wednesday. If you have questions the morning of surgery, please call the Pre-op Department at [phone]. Notify your SURGEON if you develop any [...] would like to schedule therapy at a [facility] facility, please call [phone] ([phone]). Do not use lotions, creams, powders, perfume, make up, cologne or after-shaves day of surgery. Remove ALL jewelry including wedding rings, body piercings,hair extensions that contain metal, nail vietnamese, make-up, and contact lens. You may brush [...] RIGHTS AND RESPONSIBILITIES As a patient at [facility], you have the right to: Receive medical care and be informed of who is taking care of you Be treated with dignity and respect Have a family member/transportation services representative of choice and your physician notified of your admission Receive information and actively participate in decisions about your care and treatment Refuse care, treatment and services Decide who may provide your support and speak for you Access hoahaoism and spiritual services Participate in ethical issues [...] of hospital charges and payment methods Patient/patient transportation services representative responsibilities are to: Provide information about health status to facilitate care, treatment and services Follow the treatment, plan, keep appointments and speak up when you do not understand the plan Respect the rights of other patients and healthcare personnel Follow organizational rules and regulations that support quality care and a safe environment Fulfill financial obligations as promptly as possible [facility] 12-29-2023 Miscellaneous Notes Patient states had a phone interview with Dr Garcia, and medications pre op and post op for day of surgery on 01/05/2024. Your surgery/procedure is scheduled at [facility] on January 05 at 730 Arrival Time 530 [facility] Address: [address] [place] [address]. [place], [place] [address] Park in [address]1 Parking lot located on [facility]. Report to the Entrance B. Check in at the information desk the surgery. The waiting room located on the second floor. If you have any questions prior to surgery, please call Pre-Admission Clinic at [phone] between 7:30 am and 4:30 pm Wednesday through Wednesday. If you have questions the morning of surgery, please call the Pre-op Department at [phone]. Notify your SURGEON if you develop any [...] would like to schedule therapy at a [facility] facility, please call [phone] ([phone]). Do not use lotions, creams, powders, perfume, make up, cologne or after-shaves day of surgery. Remove ALL jewelry including wedding rings, body piercings,hair extensions that contain metal, nail vietnamese, make-up, and contact lens. You may brush [...] RIGHTS AND RESPONSIBILITIES As a patient at [facility], you have the right to: Receive medical care and be informed of who is taking care of you Be treated with dignity and respect Have a family member/transportation services representative of choice and your physician notified of your admission Receive information and actively participate in decisions about your care and treatment Refuse care, treatment and services Decide who may provide your support and speak for you Access hoahaoism and spiritual services Participate in ethical issues [...] of hospital charges and payment methods Patient/patient transportation services representative responsibilities are to: Provide information about [...] promptly as possible documented in this encounter [facility] 12-29-2023 Nurse Note Patient states had a phone interview with Dr Garcia, and medications pre op and post op for day of surgery on 01/05/2024. [facility] 12-22-2023 History of Presen t illness Narrative Images from the original note were not included. PROBLEM VISIT Riri Alejandro is 28 y.o. a established patient. Here for No chief complaint on file. . Last pap: 01/18/23 Last mammogram: No LMP recorded. Patient has had an implant. History: Past Medical History: Diagnosis Date ADHD (attention deficit hyperactivity disorder) ([facility]) Asthma ([facility]) high schoool History of being hospitalized childbirth x1 06/24, ICU for strep throat 01/2023 Ulcerative colitis ([facility]) 2008 Past Surgical History: Procedure Laterality Date ME MEDICATION MANAGEMENT Procedure:medications;Disease:ul cerative colitis Family History [...] MA,12/22/2023 2:50 PM documented in this encounter [facility] 12-21-2023 Telephone encounter Note Gume left a VM asking what her diagnosis was from [facility] ..Her other Dr is asking and she did not remember .. Please call (can leave a message) and let her know what that is . Ty [phone] Looks like she was here last February [facility] 12-21-2023 Miscellaneous Notes Gume left a VM asking what her diagnosis was from [facility] ..Her other Dr is asking and she did not remember .. Please call (can leave a message) and let her know what that is . Ty [phone] Looks like she was here last February documented in this encounter [facility] 12-10-2023 Miscellaneous Notes Received fax that patient is scheduled for T and A on 01/05 @ [facility] w/ Dr. Jain Per Dr Sotelo office note: For her T+A, She will require DDAVP prior to surgery and then lysteda 1300 mg po q8 hours for 14 days. She should have her T+A at [facility]. Clearance faxed to ENT office and scanned into media. Spoke with patient. Reviewed plan for T and A in detail. Reviewed DDAVP, fluid restriction for 24 hours, post op lysteda. Reviewed to call if any trouble getting lysteda from pharmacy. Script sent to pharmacy documented in this encounter [facility] 12-10-2023 Telephone encounter Note Received fax that patient is scheduled for T and A on 01/05 @ [facility] w/ Dr. Jain Per Dr Sotelo office note: For her T+A, She will require DDAVP prior to surgery and then lysteda 1300 mg po q8 hours for 14 days. She should have her T+A at [facility]. Clearance faxed to ENT office and scanned into media. Spoke with patient. Reviewed plan for T and A in detail. Reviewed DDAVP, fluid restriction for 24 hours, post op lysteda. Reviewed to call if any trouble getting lysteda from pharmacy. Script sent to pharmacy [facility] 12-07-2023 History of Presen t illness Narrative [...] Diagnosis Date ADHD (attention deficit hyperactivity disorder) ([facility]) Asthma ([facility]) high schoool History of being hospitalized childbirth x1 06/24, ICU for strep throat 01/2023 Ulcerative colitis ([facility]) 2008 Past Surgical History: Procedure Laterality Date ME MEDICATION MANAGEMENT Procedure:medications;Disease:ul cerative colitis No Known [...] as of 12/07/2023. documented in this encounter [facility] 07-29-2023 Evaluation note Encounter Date Diagnosis Assessment Notes Jul, Ulcerative colitis (ICD-10 - K51.90) COLITIS IS SHOWING IN REMISSION AT THIS TIME. PATIENT TO CONTINUE ON THE HUMIRA. PATIENT WILL REPEAT CBC AND CMP IN 6 MONTHS [employer] Addiction [employer] (ABAM) Other [facility]* Encounter Date Diagnosis Assessment Notes Treatment Notes Treatment Clinical Notes Feb, Ulcerative colitis (ICD-10 - K51.90) [employer] (ABAM) Other 04-04-2023 Evaluation note* Encounter Date Diagnosis Assessment Notes Treatment Notes Treatment Clinical Notes Feb, Ulcerative colitis (ICD-10 - K51.90) [facility] Proceed with colonoscopy [employer] Addiction [employer] (ABAM) Other 03-01-2022 History general Narrative - Reported* Type Description Date Hospitalization History throat closed 01/2022 [employer] (ABAM) Other 03-01-2022 History general Narrative - Reported* Type Description Date Medical History ulcerative colitis Medical History STORAGE POOLS Medical History sleep apnea Hospitalization History throat closed 01/2022 [employer] (ABAM) Other 02-22-2022 Evaluation note* Encounter Date Diagnosis Assessment Notes Treatment Notes Treatment Clinical Notes Dec, Colitis (ICD-10 - K52.9) RTO 6 MONTHS [employer] (ABAM) Other [facility] noteNo InformationNort EDMdesigner Other [facility] note* Diagnosis Onset Date Resolution Status Ulcerative colitis [facility] Work Phone: evaluation note* Diagnosis Tonsillar hypertrophy Hypertrophy of tonsils alone Sleep apnea Unspecified sleep apnea Recurrent streptococcal tonsillitis Snoring Other dyspnea and respiratory abnormality Platelet function defect (CMS-HCC)- Primary Tonsillar hypertrophy Hypertrophy of tonsils alone Sleep apnea, unspecified type Recurrent streptococcal tonsillitis Snoring Other dyspnea and respiratory abnormality documented in this encounter [facility] [employer] note* Diagnosis JENSEN (obstructive sleep apnea)- Primary Obstructive sleep apnea (adult) (pediatric) Migraine without aura, intractable, without status migrainosus (CMS/HCC) 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) documented in this encounter [facility] HealthcareEvaluation note* Diagnosis Folliculitis- Primary Other specified disease of hair and hair follicles documented in this encounter [facility] HealthcareEvaluation note* Diagnosis Sleep apnea, unspecified type- Primary [facility] this encounter [facility] Additional Instructions DISCHARGE INSTRUCTIONS FOR [...] if you have any problems. -Office number [phone] Work Phone: InstructionsNot on filedocumented in this encounter [facility] SystemInstructionsNot on filedocumented in this encounter [facility] SystemInstructionsNot on filedocumented in this encounter [facility] [employer] [facility] Summary Purpose Family History No Family History Records Found Relationship Condition Age at Onset Recorded Date/T cece grandparent Heart disease Unknown Diabetes mellitus Unknown Sleep apnea Unknown grandparent Malignant neoplasm Unknown father Diabetes mellitus Unknown Advance Directives No Advanced Directives Records FoundDocuments on File Type Date Recorded Patient Archives Technician Expl anation Advance Directives and Living Will Power of Orthotist Prosthetist Latest Code Status on File Code Status Date Activated Date Inactivated Comments Full Code 12/07/2018 6:20 PM 12/09/2018 9:25 PM Full Code 12/07/2018 5:59 AM 12/07/2018 5:55 PM Full Code 06/19/2017 9:49 PM 06/21/2017 12:29 PM Full Code 06/18/2017 4:59 PM 06/19/2017 9:49 PM Full Code 06/18/2017 12:49 PM 06/18/2017 4:59 PM Documents on File Type Date Recorded Patient Archives Technician Expl anation Advance Directives and Living Will Power of Orthotist Prosthetist Latest Code Status on File Code Status [...] VARGAS - 04/23/2020 OUTPATIENT DISCHARGE Jessica Mullen [facility] or [address] Dr. Clancy Dr. Castro, Felecia Carpenter [facility] Godwin Ray [facility] Felecia Paige [facility] Tati Olmedo [facility] ACTIVITY LIMITATIONS: ( )Up and about [...] Everywhere. * Coronavirus Disease (COVID-19): General Info (Iranian) documented in this encounter* Discharge Instr - Activity* Shelly Guerrero RN - 05/29/2020 8:16 AM EDT As tolerated * Discharge Instr - Diet* Shelly Guerrero RN - 05/29/2020 8:16 AM EDT General diet * Additional Instructions* Shelly Guerrero RN - 05/29/2020 Follow-up with your OB doctor as specified. [facility] OB Department phone: Dr. Jake Grossman [facility] Dr. Matthew Carepnter CN [address] [address] [place] or [place] Godwin Ray, MSN, INFRASTRUCTURE DEVELOPER, CNM [facility] [address] [facility] [address] [address] [facility] [id number] Felecia Paige CNM [address] [place] [address] [place] [address] Tati Olmedo CNM [address] [place] [address] [place] [address] [phone] DIET Eat a well balanced diet focusing on foods high in fiber and protein. Drink plenty of fluids especially water. To avoid constipation you may take a mild stool softener as recommended by your doctor or party bus driver. ACTIVITY Gradually increase your activity. Resume exercise regimen only after advice by your doctor or party bus driver. Avoid lifting anything heavier than a gallon of milk for SIX weeks. Avoid driving until your doctor or party bus driver has given their approval. Rise slowly from [...] medications as recommended by your doctor or party bus driver for pain If you develop a warm, [...] vitamins as directed by your doctor or party bus driver. Refer to the booklet in the folder/binder for more information. If you feel you need more assistance or have questions, please call Megan Turner IBCLC, disaster recovery consultant, at or the OB department to [...] they become loose or soiled. If used, [place] should be removed by your care provider. [...] cannot be sent through Care Everywhere. * (Iranian) documented in this encounter* Instructions* Basia Heller RN - 05/22/2020 Home Undelivered Discharge Instructions After Discharge Orders: Future Appointments Date Time Provider Department Center 05/27/2020 8:00 AM [facility] L&D INDUCTION [facility]D [place] HOD 07/23/2020 2:15 PM Raman Barnard MD [...] swishes, or rolls. 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 documented in this encounter History of Present Illness * Joan Martinez RN - 08/23/2019 9:56 AM EDT Report given to Angie KYAE * Fabi Ron RN - 08/23/2019 9:15 AM EDT Patient refused test. States she is on her period and her boyfriend has a vasectomy. Risks explained to patient. Patient still wishes to refuses test. Refusal form signed and on chart. documented in this encounter* Shelly Guerrero RN - 05/29/2020 9:00 AM EDT Patient given discharge instructions at this time. Smelting Engineer offered to go sinan them and patient [...] rate: Baseline Heart Rate: 130 Accelerations: present Nursing Home Variability: moderate Decelerations: variable Contraction frequency: 2-4 [...] rate: Baseline Heart Rate: 135 Accelerations: present Assembler Camper Variability: moderate Decelerations: absent Contraction frequency: 2-3 minutes Membranes: Ruptured clear fluid Cervix: Dilation: 4 cm Effacement: 60 Station: -2 Position: mid ASSESSMENT & PLAN: Continue routine labor orders Frequent position changes Anticipate * Megan Muñoz RN - 05/27/2020 8:14 PM EDT Robin Ray CNM remains in department. * Megan Muñoz RN - 05/27/2020 7:47 PM EDT Patient sitting upright in bed for epidural from [phone]. FHR not tracing on monitor yet FHR [...] rate: Baseline Heart Rate: 125 Accelerations: present Nursing Home Variability: moderate Decelerations: absent Contraction frequency: 2-3 [...] rate: Baseline Heart Rate: 130 Accelerations: present Assembler Camper Variability: moderate Decelerations: absent Contraction frequency: 2-3 [...] NR Final HIV: No results found for: [id number] Results for orders placed or performed during [...] # 1.62 1.10 - 3.70 k/uL Absolute [place] # 0.75 0.10 - 1.20 k/uL Absolute [...] Discharge Medication: Riri Alejandro Home Medication Instructions PRICE:[id number] Printed on:05/29/20 0748 Medication Information Adalimumab (HUMIRA) [...] section and content) DATE CREATED AUTHOR 04/29/2018 [facility] DATE CREATED AUTHOR AUTHOR'S ORGANIZ ATION 02/16/2023 [facility] pitwa DATE CREATED AUTHOR AUTHOR'S ORGANIZ ATION 03/22/2023 [facility]wa DATE CREATED AUTHOR AUTHOR'S ORGANIZ ATION 05/03/2023 [facility] DATE CREATED AUTHOR AUTHOR'S ORGANIZ ATION 12/26/2023 [facility] EPIC DATE CREATED AUTHOR AUTHOR'S ORGANIZ ATION 01/12/2024 [facility] Reason for Visit (unrecogniz ed section and content) Status Reason Specialty Diagnoses / Procedures Referre d By Contact Referred To Contact Diagnoses Ulcerative pancolitis (HCC) ULCERATIVE PANCOILITIS WITHOUT COMPLICATION Procedures ME COLONOSCOPY FLX DX W/COLLJ SPEC WHEN PFRMD COLONOSCOPY DIAGNOSTIC Raman Barnard MD [address] [place] [address] [place] [address] [facility] Reason Comments Abdominal Pain Reason Comments Scheduled Induction Status Reason Specialty Diagnoses / Procedures Referre d By Contact Referred To Contact Diagnoses Term Myriam Ray, MIGEL - CNM [address] [place] [address] [facility] Reason Onset Date Comments Surgical Or Dental Clearance 12/10/2023 Reason Comments Migraine Care Teams (unrecognized sec tion and content) Team Status: Active Member Role Status Dates Maegan Lara NP-Kirt Primary Care Provider Active Team Status: Inactive Member Role Status Dates Jm Bell MD Attending Provider Active Maegan Lara NP-C Primary Care Provider Active Bell Clerk Relationship Specialty Start Date End Date Maegan Lraa APRN-SAVINGS TELLER [address] [place] [phone] PCP - General Family Medicine 06/09/23 Bell Clerk Relationship Specialty Start Date End Date Unallocated, [place] Provider [address] [place] [address] PCP - General 05/24/23 Bell Clerk Relationship Specialty Start Date End Date Unallocated, [place]oms Provider [address] [place] [address] PCP - General 05/24/23 Bell Clerk Relationship Specialty Start Date End Date Unallocated, [place] Provider [address] [place] [address] PCP - General 05/24/23 Bell Clerk Relationship Specialty Start Date End Date Unallocated, [place] Provider [address] [place] [address] PCP - General 05/24/23 Bell Clerk Relationship Specialty Start Date End Date Maegan Lara APRN-ANGELO [address] [facility] [place] [address] PCP - General Family Medicine 06/09/23 Bell Clerk Relationship Specialty Start Date End Date Maegan Lara, INFRASTRUCTURE DEVELOPER-SAVINGS TELLER [address] [facility], [place] [address] PCP - General Family Medicine 06/09/23 FOR [...] BE BASED ON THE PRIMARY CLINICAL RECORDS. [facility] [employer] [facility]. provides no warranty or guarantee of the accuracy or completeness of information in this document.
[2024-01-26 20:28] LABS: Basophils Percent Auto 0.3 % (0.2-2.0); Eosinophils Absolute Auto 0.3 10^3/uL (0.0-0.7); Eosinophils Percent Auto 3.1 % (0.9-7.0); Hematocrit 36.1 % (36.0-48.0); Hemoglobin 11.6 g/dL (12.0-16.0); Immature Granulocytes Abs Auto 0.02 10^3/uL (0.00-0.03); Immature Granulocytes Pct Auto 0.2 % (0.0-0.5); Lymphocytes Absolute Auto 2.7 10^3/uL (1.2-3.8); Lymphocytes Percent Auto 28.6 % (20.5-60.0); Mean Corpuscular HGB Conc 32.1 g/dL (29.9-35.2); Mean Corpuscular Hemoglobin 26.9 pg (26.7-34.0); Mean Corpuscular Volume 83.6 fL (81.0-99.0); Mean Platelet Volume 9.3 fL (9.5-13.5); Monocytes Absolute Auto 0.8 10^3/uL (0.3-0.8); Monocytes Percent Auto 8.2 % (1.7-12.0); Neutrophils Absolute Auto 5.6 10^3/uL (1.4-6.5); Neutrophils Percent Auto 59.6 % (43.0-75.0); Platelet Count 329 10^3/uL (150-450); Red Blood Count 4.32 10^6/uL (4.20-5.40); Red Cell Distribution Width 14.6 % (11.0-15.0); White Blood Count 9.3 10^3/uL (4.0-11.0)
[2024-01-26] MEDS: 0.9 % SODIUM CHLORIDE 1,000 ML 1000 ML IV (20:28)
[2024-01-26 20:45] LABS: Alanine Aminotransferase 15 U/L (14-59); Albumin Globulin Ratio 0.9; Albumin Level 3.6 g/dL (3.4-5.0); Alkaline Phosphatase 48 U/L (46-116); Anion Gap 11.8; Aspartate Amino Transferase 11 U/L (15-37); BUN Creatinine Ratio 20.7; Bilirubin Total 0.2 mg/dL (0.2-1.0); C Reactive Protein <0.50 mg/dL (<=0.50); Calcium 8.5 mg/dL (8.5-10.1); Carbon Dioxide 23.6 mmol/L (21.0-32.0); Chloride 103 mmol/L (98-107); Estimated GFR (African America >60 (>=60); Estimated GFR (Non-African Ame >60 (>=60); Glucose 86 mg/dL (74-106); Potassium 3.4 mmol/L (3.5-5.1); Sodium 135 mmol/L (136-145); Total Protein 7.6 g/dL (6.4-8.2)
[2024-01-26] MEDS: PANTOPRAZOLE SODIUM 40 MG VIAL IV (20:46)
[2024-01-26] MEDS: HYOSCYAMINE SULFATE 0.125 MG TAB.SUBL SL (20:46)
[2024-01-26 20:47] LABS: Lactate/Lactic Acid 0.8 mmol/L (0.4-2.0)
[2024-01-26 20:50] LABS: Erythrocyte Sedimentation Rate 34 mm/hr (<=20)
[2024-01-26 20:51] LABS: HCG Qualitative NEGATIVE (NEGATIVE)
--- NOTE | 2024-01-26 20:54 | XR_ITS ---
The [address] [address] Patient Name: GIGI FERGUSON MRN: [id number] date: 1995 Sex: F Assigned Patient Location: ER Current Patient Location: ER Accession/Order Number: [id number] Exam Date: 01/26/2024 21:10 Report Date: 01/26/2024 21:32 At the request of: NANCY HEARD Procedure: XR abdomen min 2V XR abdomen min 2V, 01/26/2024 8:10 PM CDT: History: Abdominal pain. Comparison: None. Technique: 2 view abdomen Findings: The bowel gas pattern is nonobstructive. There is no evidence of free intra-abdominal air. There is no evidence of organomegaly or abnormal intra-abdominal calcifications. There is an IUD in the pelvis. XR/XR abdomen min 2V Impression: Nonobstructive bowel gas pattern without evidence of free air. Electronically authenticated by: KENNY DENNY Date: 01/26/2024 21:32
[2024-01-26 21:36] LABS: Bilirubin Urine NEGATIVE (NEGATIVE); Blood Urine SMALL (NEGATIVE); Clarity Urine SL CLOUDY (CLEAR); Color Urine YELLOW (YELLOW); Glucose Urine UA NEGATIVE (NEGATIVE); Ketones Urine NEGATIVE (NEGATIVE); Leukocyte Esterase Urine NEGATIVE (NEGATIVE); Nitrite Urine NEGATIVE (NEGATIVE); Protein Urine NEGATIVE (NEG/TRACE); Specific Gravity Urine >=1.030 (1.005-1.025); Urobilinogen Urine 0.2 EU/dL (0.2-1.0); pH Urine 5.5 (5.0-9.0)
[2024-01-26 21:43] LABS: Urine Microscopic Indicated YES
[2024-01-26 21:46] VITALS: BP 128/74
[2024-01-26 21:46] LABS: Bacteria Urine NONE SEEN #/HPF (NONE SEEN); Mucus Urine NONE SEEN (NONE SEEN); RBC Urine 0-2 #/HPF (0-2)
[2024-01-26 21:47] LABS: Amorphous Sediment Urine MANY; Cast Seen? NONE SEEN #/LPF (NONE SEEN); Crystals Seen? None Seen #/HPF (None Seen); Squamous Epithelial Cell Urine FEW #/LPF (NONE/RARE)
[2024-01-26 21:48] LABS: WBC Urine 0-2 #/HPF (NONE SEEN)
== END 2024-01-26 21:48 | disposition home or self-care (01) ==
PROVIDERS: Physician Assistant; Emergency Provider Emergency Medicine; PCP Nurse Practitioner Family
DX: R10.9 Unspecified abdominal pain (principal); F17.200 Nicotine dependence, unspecified, uncomplicated; K51.90 Ulcerative colitis, unspecified, without complications
CPT/HCPCS: 36415; 74019; 80053; 81001; 83605; 84703; 85025; 85652; 86140; 96361; 96374; 99285

== ENCOUNTER 2024-03-08 09:03 | Outpatient (OUT) | payer MEDICAID, SELFPAY ==
--- NOTE | 2024-03-08 09:49 | P.CN_ITS ---
Consult Note: HPI Data of Consult Patient: new to practice Requesting Physician: Ernestina Patrick MD Primary Care Provider: ZACK LARA Consult Narrative Reason for consult: chronic low back pain with left sided radiculopathy Narrative: Riri Alejandro a pleasant 28 year old female presents for evaluation and management of chronic low back pain with left sided radiculopathy. Onset 15 years ago without injury, progressively worsening. Pain today 5-6/10 increasing to 10/10 constant throbbing, numbing, sharp pain radiating into left left. Patient reports numbness tingling weakness of LLE. Pain increased with all activity, improved with heat and rest. denies loss of bowel or bladder. recently completed PT and greater than 6 weeks of HEP with increase in her pain and symptoms. patient utilizes a cane. cannot take NSAIDs. currently utilizing tylenol, icy hot, biofreeze, and tizanidine with mild benefit. reports no histo ry of taking gabapentin/lyrica/zonegran. patient utilizes clonazepam and marijuana. No evaluation by NS or pain management in the past. Follows with neurology. cc:: CC: Ernestina Patrick MD Review of Systems ROS Status of ROS 10 or more systems reviewed and unremark able except as noted in history and below Musculoskeletal Reports: back pain and extremity pain PFSH PFSH Social History Smoking status: Current every day smoker Meds Home Medications and Allergies Home Medications ?Medication ?Instructions ?Recorded ?Confirmed ?Type adalimumab 40 mg/0.4 mL 20 mg subcut Q14D 10/04/23 01/26/24 History subcutaneous pen kit (Humira(CF) Pen) albuterol sulfate 90 mcg/actuation 1 puff inhalation Q8H PRN 10/04/23 01/26/24 History aerosol inhaler shortness of breath or wheezing budesonide-formoterol HFA 160 2 puff inhalation Q12H PRN 10/04/23 01/26/24 History mcg-4.5 mcg/actuation aerosol shortness of breath or wheezing inhaler (Symbicort) clonazepam 0.5 mg tablet 0.5 mg PO Q12H 10/04/23 01/26/24 History erenumab-aooe 70 mg/mL 70 mg subcut .monthly 10/04/23 10/04/23 History subcutaneous auto-injector (Aimovig Autoinjector) famotidine 20 mg tablet (Pepcid) 20 mg PO BID #10 tabs 10/04/23 Rx ondansetron 4 mg disintegrating 4 mg PO Q6H PRN nausea and 10/04/23 Rx tablet vomiting #12 tabs tiotropium bromide 1.25 2 puff inhalation Q24H 10/04/23 01/26/24 History mcg/actuation mist for inhalation (Spiriva Respimat) tizanidine 4 mg tablet 4 mg PO Q8H 10/04/23 01/26/24 History dicyclomine 20 mg tablet 20 mg PO QID PRN abdominal pain 01/26/24 Rx #12 tabs erenumab-aooe 140 mg/mL mg subcut 01/26/24 History subcutaneous auto-injector (Aimovig Autoinjector) ondansetron 4 mg disintegrating 4 mg PO Q6H PRN nausea and 01/26/24 Rx tablet vomiting #12 tabs pantoprazole 40 mg tablet,delayed 40 mg PO DAILY #7 tabs 01/26/24 Rx release (Protonix) sucralfate 1 gram tablet (Carafate) 1 g PO Q6H PRN abdominal pain #12 01/26/24 Rx tabs Allergies Allergy/AdvReac Type Severity Reaction Status Date / Time No Known Drug Allergies Allergy Verified 01/26/24 20:11 Exam Constitutional Documenting provider has reviewed patient's vital signs: yes Common normals: no apparent distress, oriented x3, healthy appearing, alert and well nourished General appearance: cooperative [facility] Common normals: normocephalic, hearing grossly normal bilaterally and moist oral mucous membranes Head and scalp: normocephalic Eye Common normals: PERRL Pupil: PERRL Neck & C-Spine Common normals: full ROM General: normal visual inspection Chest Common normals: inspection of chest normal Respiratory Common normals: normal respiratory effort, no retractions and no use of accessory muscles Back & Pelvis Lumbar spine/lower back: ROM limited, pain with ROM and straight leg raise positive left Sacroiliac joints: SI joint(s) abnormal SI joint details: tender to palpation, pain elicited by compression of iliac crest maneuver and pain elicited by passive hyperextension of lower extremity Other: axial loading positive bilaterally, tenderness over lumbar spine left L4,5 L5,S1 radiculopathy strength 4/5 in LLE, 5/5 in RLE utilizes cane Extremity Common normals: normal to inspection and full ROM Neuro Common normals: oriented x3, CN's II-XII intact bilaterally, moves all extremities, no focal motor deficits, no sensory deficits noted and deep tendon reflexes 2+ bilaterally Sensorium/orientation: alert Gait (neuro): assistive device used cane Motor exam: no movement abnormalities noted and strength abnormal Psych Common normals: mental status grossly normal, thought process normal, cooperative, affect normal, speech normal and activity/motor behavior normal Speech: normal speech Thought process: normal thought process Results Additional Findings Additional findings: If on a controlled substance or opioids, I have checked an [place]AR[place] report on this patient and there are no aberrancies noted in the prescribing history.??If on a controlled substance or opioid a drug screen was completed and reviewed within the last year, and if there has not been a drug screen completed we ordered one today to monitor higher risk, state monitored pain medication use. As part of providing excellent, safe, comprehensive care, the following was completed at our patient's visit: 1. A medication reconciliation and review to ensure accurate knowledge of current/active medications, including asking our patients to inform us about any [id number] medications or herbal remedies/nutritional supplements/alternat faye remedies. 2. A review to specifically ensure our patients have had annual screening for screening for depression, screening for tobacco use, and screening for unhealthy alcohol use. For concerning screenings had a discussion with the patient, provided patient education, and recommended follow-up with primary care provider when appropriate. If patient noted with a risk of falling, they received education on strength, gait, and balance training to prevent future risk of falling. Assessment and Plan Assessment and Plan (1) Chronic low back pain with left-sided sciatica: (2) Lumbar stenosis with neurogenic claudication: (3) Vertebrogenic low back pain: (4) Lumbar radiculopathy: Plan update lumbar MRI without contrast to evaluate chronic low back pain with radiculopathy unresponsive to conservative medications, PT/HEP greater than 6 weeks. EMG NCV BLE NNCP chronic benzos and marijuana use consider gabapentin/lyrica f/u to review imaging and EMG
== END 2024-03-08 09:04 | disposition home or self-care (01) ==
LOC: PM 09:04
PROVIDERS: PCP Nurse Practitioner Family; Visit Provider Anesthesiology Pain Medicine
DX: M54.50 Low back pain, unspecified (principal); M48.062 Spinal stenosis, lumbar region with neurogenic claudication; M54.16 Radiculopathy, lumbar region
CPT/HCPCS: G0463

== ENCOUNTER 2024-03-15 10:57 | Outpatient (OUT) | payer MEDICAID, SELFPAY ==
[2024-03-16 08:13] LABS: HBsAg Screen Negative (Negative); Hep B Core Ab, Tot Negative (Negative); Hepatitis B Surf Ab Quant 35.5 mIU/mL (Immunity>9.9)
[2024-03-17 08:13] LABS: QuantiFERON-TB Gold Plus Negative (Negative)
== END 2024-03-15 10:58 | disposition home or self-care (01) ==
LOC: LAB 10:59
PROVIDERS: PCP Nurse Practitioner Family
DX: K51.90 Ulcerative colitis, unspecified, without complications (principal)
CPT/HCPCS: 36415; 86317; 86480; 86704; 87340

== ENCOUNTER 2024-03-29 09:18 | Outpatient (OUT) | payer MEDICAID, SELFPAY ==
--- NOTE | 2024-03-29 09:54 | MR_ITS ---
The [address] [address] Patient Name: GIGI FERGUSON MRN: [id number] date: 1995 Sex: F Assigned Patient Location: MRI Current Patient Location: MRI Accession/Order Number: [id number] Exam Date: 03/29/2024 10:00 Report Date: 03/29/2024 12:12 At the request of: BARRINGTON CARMICHAEL Procedure: MR lumbar spine wo con EXAMINATION: MR lumbar spine wo con HISTORY: Lumbar Stenosis With Neuro Claudication Lumbar Radiculopathy COMPARISON: No relevant comparison available. TECHNIQUE: A variety of imaging planes and parameters were utilized for visualization of suspected pathology. FINDINGS: For the purposes of numbering, sagittal T2 image # 8 extends from the T11 vertebral body superiorly to the S3-S4 level inferiorly. PARASPINAL AREA: Normal with no visible mass. BONES: Normal alignment with no acute fracture or spondylolisthesis. Areas of signal abnormality L1 L4 S2-S3 vertebral bodies, hemangiomas are favored CORD/CAUDA EQUINA: Normal caliber, contour, and signal intensity. DISC LEVELS: 12-L1: No significant disc/facet abnormality, spinal stenosis, or foraminal stenosis. L1-L2: No significant disc/facet abnormality, spinal stenosis, or foraminal stenosis. L2-L3: No significant disc/facet abnormality, spinal stenosis, or foraminal stenosis. L3-L4: No significant disc/facet abnormality, spinal stenosis, or foraminal stenosis. L4-L5: No significant disc/facet abnormality, spinal stenosis, or foraminal stenosis. L5-S1: No significant disc/facet abnormality, spinal stenosis, or foraminal stenosis. MR/MR lumbar spine wo con IMPRESSION: No disc bulge or herniation. No central or foraminal stenosis Electronically authenticated by: TAMMY POTTER Date: 03/29/2024 12:12
== END 2024-03-29 09:19 | disposition home or self-care (01) ==
LOC: MRI 09:19
PROVIDERS: PCP Nurse Practitioner Family; Visit Provider Nurse Practitioner
DX: M48.062 Spinal stenosis, lumbar region with neurogenic claudication (principal); M54.16 Radiculopathy, lumbar region
CPT/HCPCS: 72148

== ENCOUNTER 2024-04-05 09:38 | Outpatient (OUT) | payer MEDICAID, SELFPAY ==
--- NOTE | 2024-04-05 09:53 | PM.CN ---
Consult Note: HPI Data of Consult Patient: known to practice within the last 3 years Requesting Physician: Simin Pimentel NP Primary Care Provider: ZACK LARA Consult Narrative Reason for consult: chronic low back pain with left sided radiculopathy Narrative: Riri Alejandro a pleasant 28 year old female presents for evaluation and management of chronic low back pain with left sided radiculopathy. Onset 15 years ago without injury, progressively worsening. Pain today 5-6/10 increasing to 10/10 constant throbbing, numbing, sharp pain radiating into left left. Patient reports numbness tingling weakness of LLE. Pain increased with all activity, improved with heat and rest. denies loss of bowel or bladder. recently completed PT and greater than 6 weeks of HEP with increase in her pain and symptoms. patient utilizes a cane. cannot take NSAIDs. currently utilizing tylenol, icy hot, biofreeze, and tizanidine with mild benefit. reports no history of taking gabapentin/lyrica/zonegran. patient utilizes clonazepam and marijuana. No evaluation by NS or pain management in the past. Follows with neurology. 04/05/24 Patient presents for lumbar MRI review which is unremarkable. Pain today 7/10 throbbing achy with numbness tingling weakness of LLE. Pain increased with twisting pushing pulling standing walking lifting stairs bending and activity, improved with sitting and lying. No new medications, no new PT. Continues to utilize cane, service dog present for visit today. cc:: CC: Simin Pimentel NP Review of Systems ROS Status of ROS 10 or more systems reviewed and unremarkable except as noted in history and below Musculoskeletal Reports: back pain, extremity pain and extremity swelling PFSH PFSH Social History Smoking status: Current every day smoker Meds Home Medications and Allergies Home Medications ?Medication ?Instructions ?Recorded ?Confirmed ?Type adalimumab 40 mg/0.4 mL 40 mg subcut Q14D 10/04/23 03/08/24 History subcutaneous pen kit (Humira(CF) Pen) albuterol sulfate 90 mcg/actuation 1 puff inhalation Q8H PRN 10/04/23 01/26/24 History aerosol inhaler shortness of breath or wheezing budesonide-formoterol HFA 160 2 puff inhalation Q12H PRN 10/04/23 01/26/24 History mcg-4.5 mcg/actuation aerosol shortness of breath or wheezing inhaler (Symbicort) clonazepam 0.5 mg tablet 0.25 mg PO Q12H 10/04/23 03/08/24 History erenumab-aooe 70 mg/mL 70 mg subcut .monthly 10/04/23 10/04/23 History subcutaneous auto-injector (Aimovig Autoinjector) tizanidine 4 mg tablet 2 mg PO .HS 10/04/23 03/08/24 History acetaminophen 500 mg tablet 500 mg PO Q6H PRN pain 03/08/24 03/08/24 History (Acetaminophen Extra Strength) Allergies Allergy/AdvReac Type Severity Reaction Status Date / Time No Known Drug Allergies Allergy Verified 01/26/24 20:11 Exam Constitutional Documenting provider has reviewed patient's vital signs: yes Common normals: no apparent distress, oriented x3, healthy appearing, alert and well nourished General appearance: cooperative HENUT Common normals: normocephalic, hearing grossly normal bilaterally and moist oral mucous membranes Head and scalp: normocephalic Eye Common normals: PERRL Pupil: PERRL Neck & C-Spine Common normals: full ROM General: normal visual inspection Chest Common normals: inspection of chest normal Respiratory Common normals: normal respiratory effort, no retractions and no use of accessory muscles Back & Pelvis Lumbar spine/lower back: ROM limited, pain with ROM and straight leg raise positive left Sacroiliac joints: SI joints normal Extremity Common normals: normal to inspection and full ROM Other: reports intermittent edema and coolness to LLE, no skin discoloration trophic changes or skin changes noted on exam. no edema noted on exam. Neuro Common normals: oriented x3, CN's II-XII intact bilaterally, moves all extremities, no focal motor deficits, no sensory deficits noted and deep tendon reflexes 2+ bilaterally Sensorium/orientation: alert Motor exam: strength 5/5 throughout and no movement abnormalities noted Psych Common normals: mental status grossly normal, thought process normal, cooperative, affect normal, speech normal and activity/motor behavior normal Speech: normal speech Thought process: normal thought process Results Additional Findings Additional findings: If on a controlled substance or opioids, I have checked an [place] report on this patient and there are no aberrancies noted in the prescribing history.??If on a controlled substance or opioid a drug screen was completed and reviewed within the last year, and if there has not been a drug screen completed we ordered one today to monitor higher risk, state monitored pain medication use. As part of providing excellent, safe, comprehensive care, the following was completed at our patient's visit: 1. A medication reconciliation and review to ensure accurate knowledge of current/active medications, including asking our patients to inform us about any [id number] medications or herbal remedies/nutritional supplements/alternative remedies. 2. A review to specifically ensure our patients have had annual screening for screening for depression, screening for tobacco use, and screening for unhealthy alcohol use. For concerning screenings had a discussion with the patient, provided patient education, and recommended follow-up with primary care provider when appropriate. If patient noted with a risk of falling, they received education on strength, gait, and balance training to prevent future risk of falling. Assessment and Plan Assessment and Plan (1) Lumbar radiculopathy: (2) Chronic low back pain: (3) Left leg pain: (4) CRPS (complex regional pain syndrome): Assessment and Plan: suspected although does not meet enough criteria (5) Chronic low back pain with left-sided sciatica: Plan refer to [facility] pain management and CPRP for evaluation and management continue f/u with neurology not interested in trialing additional medications at this time
--- OUTSIDE RECORDS SUMMARY | 2024-04-05 10:00 | XMS_ITS | CCD ---
Author Organization [facility] Care Team Providers Care Tester Food Products Name Role Phone AnnynegritoKdMadeline, Basia Zan Primary Care Provi lizeth Jm Bell Unavailable MAEGAN LARA Primary Care Unavailable MARCO, MAEGAN Primary Care Unavailable EMANUEL ., DR CÁRDENAS Attending Unavailable HAY ., [...] MD Jm Bell Attending Provider MARCELINO Lara Primary Care Provider Maegan Lara Primary Care Unavailable Jm Bell Attending UnavailJm Anthony Admitting Unavailrosina Lara APRN-Maegan STEPHENS S Primary Care Provider Unallocated, Noms Provider Primary Care Provider HUGO FRIEDMAN Admitting Unavailable HUGO FRIEDMAN Attending Unavailable MARCO, MAEGAN S Primary Care Unavailable MARCO, MAEGAN S Primary Care Unavailable MARCO, MAEGAN S Referring Unavailable MARCO, MAEGAN S Primary Care Unavailable NAOMIE THRASHER Attending Unavailable BRIAN MC Attending Unavailable MARCO, MAEGAN Referring Unavailable JAEL ALVARADO Attending Unavailable MARCO, MAEGAN Referring Unavailable NAOMIE THRASHER Attending Unavailable BRIAN MC Attending Unavailable MARCO, MAEGAN Referring Unavailable MYRIAM RAY Attending Unavailable EDELMIRA MCINTYRE Attending Unavailable BARRINGTON CARMICHAEL Referring Unavailable Allergies Allergy Classification Reported Allergen(s) Allergy Type Date of Onset Reaction(s) Facility (4 sources) Horse-Derived Products Propensity to adverse reactions to drug 3 [place] (4 sources) Other Propensity to adverse reactions 2 [place] (2 sources) Horse/Equine Containing Products; Translations: [Horse/Equine Containing Products] Allergy to substance 3 Swelling of Lip/Tongue/Thro at [facility] Medications Current Medications Medication Drug Class(es) [...] skin every 14 (fourteen) days. 0 Active [id number] 200 actuat albuterol 0.09 mg/actuat metered dose inhaler (12 sources) beta2-Adrenergic Agonist Start: 04-29-2023 take 1 [...] formoterol fumarate 0.0045 mg/actuat metered dose inhaler (20 sources) Corticosteroid, beta2-Adrenergic Agonist Start: 04-29-20 23 [...] 2 puffs Inhalation Once a day Active Calcium Carbonate (8 sources) Start: 01-31-2024 tums Active PO January 31, 2024 12:00am take 1 tablet by verónica th in [...] 01/01/2024 Active cholecalciferol 0.05 mg oral capsule (3 sources) Vitamin D Start: 04-29-2023 take 1 capsule by mouth once daily Cholecalciferol (Vitamin D3) (Vitamin D3) 50 mcg (2,000 unit) Capsule Active 50 MCG PO Daily April 29, 2023 12:00am take 1 capsule by co ut every twenty-four hours Vitamin D3 50 MCG (2000 UT) 1 capsule Orally Once a day Active cholecalciferol, vitamin D3, (VITAMIN D3 ORAL) (3 sources) cholecalciferol, vitamin D3, (VITAMIN D3 ORAL) Take by mouth daily. 0 Active clonazePAM 0.5 mg oral tablet (20 sources) Benzodiazepine Start: 04-29-20 take 0.25 mg [...] Discharge) 1 ml erenumab-aooe 140 mg/ml auto-injector (14 sources) Start: 12-07-2023 End: 06-04-2024 inject 1 [...] Active ferrous sulfate 325 mg oral tablet (7 sources) Start: 04-29-2023 take 1 tablet by mouth once daily Ferrous Sulfate (Iron) 325 mg (65 mg iron) Tablet Active 325 MG PO Daily April 29, 2023 12:00am Start: 05-28-2020 ferrous sulfat e (IRON 325) tablet 325 mg Start: 12-09-2018 take 1 tablet by verónica twice daily at mealtime ferrous sulfate 325 [...] 0 Active loratadine 10 mg oral tablet (6 sources) Start: 3 take 1 tablet by mouth once daily Loratadine (Claritin) 10 mg Tablet Active 10 MG PO Daily April 29, 2023 12:00am Magnesium (3 sources) Start: take 400 mg by mouth once daily [...] in the morning. 0 Active Multivitamin preparation (5 sources) Start: 023 End: 024 take 1 tablet by mouth once daily Multivitamin Discontinued 1 TAB PO Daily April 29, 2023 12:00am January 31, 2024 9:26am Start: 04-29-2023 take 1 tablet by verónica th once daily Multivitamin Active 1 TAB PO Daily April 29, 2023 12:00am take 1 tablet by verónica th once daily Multi Vitamin - 1 tablet Orally Once a day Active NON FORMULARY (3 sources) NON FORMULARY da scott. Med Name: [id number] 0 Active Williams 3 1000 MG (1 source) take 1 capsule by mouth once daily Williams 3 1000 MG 1 capsule Orally Once a day Active omega 6-hrn-wlm-fish oil (Fish OiL) 300-1,000 mg capsule (3 sources) omega 3-dha-epa- fish oil (Fish OiL) 300-1,000 mg capsule Take by mouth daily. 0 Active Williams-3 Fatty Acids-Fish Oil (2 sources) Start: 3 take 1 capsule by mouth once daily Williams-3 Fatty Acids-Fish Oil Active 1 CAP PO Daily April 29, 2023 12:00am Ondansetron (2 sources) Serotonin-3 Receptor Antagonist Start: 4 ondansetron Active PO January 31, 2024 12:00am Start: 05-28-2020 ondansetron (Z OFRAN-ODT) disintegrating tablet 8 mg oxyCODONE hydrochloride 1 mg/ml oral solution (1 source) Opioid Agonist Start: 01-05-2024 End: 01-12-2024 take 5 mL by mouth every four hours as needed for pain oxyCODONE (ROXICODONE) 5 mg/5 mL solution Indications: Sleep apnea, unspecified type Take 5 mL (5 mg total) by mouth every 4 (four) hours as needed for pain for up to 7 days. Max Daily Amount: 30 mg 210 mL 0 01/05/2024 01/12/2024 Active pantoprazole 40 mg delayed release oral tablet (1 source) Proton Pump Inhibitor Start: 01-31-2024 take 1 tablet by mouth once daily Pantoprazole Active 40 MG PO Daily January 31, 2024 12:00am Take 1 tablet orally once a day. polyethylene glycol 3350 99404 mg powder for oral solution (6 sources) Osmotic Laxative End: 05-29-2020 polyethylene glycol (GLYCOLAX) 17 gram/dose powder Take 17 g by mouth daily as needed. 0 Active polyethylene glycol 3350 884208 mg / potassium chloride 2970 mg / sodium bicarbonate 6740 mg / sodium chloride 5860 mg / sodium sulfate 54061 mg powder for oral solution (4 sources) Osmotic Laxative Start: 02-09-2023 Golytely 236 GM 8oz every 15 minutes Orally at 4pm the day prior to colonoscopy for 1 days Feb, Active predniSONE 20 mg oral tablet (4 sources) take 3 tablets by mouth every twenty-four hours predniSONE 20 MG 3 TABLETS Orally Once a day Active 3 ml sodium chloride 9 mg/ml injection (2 sources) Start: 05-28-2020 sodium chloride flush 0.9 % injection 10 mL SUMAtriptan 100 mg oral tablet (8 sources) Serotonin-1b and Serotonin-1d Receptor Agonist Start: 10-05-2023 take 1 tablet by mouth every two hours SUMAtriptan (IMITREX) 100 mg tablet take 1 tablet by mouth AT ONSET OF MIGRAINE may repeat in 2 hours... (REFER TO PRESCRIPTION NOTES). 0 10/05/2023 Active 60 actuat tiotropium 0.45910 mg/actuat inhalation spray (12 sources) Anticholinergic Start: 04-29-2023 take 1 puff(s) by inhalation once daily Tiotropium [place] (Spiriva Respimat) 1.25 mcg/actuation Mist Active 1 [...] puffs Inhalation Once a day Active tiZANidine (10 sources) Central alpha-2 Adrenergic Agonist Start: 01-31-2024 tizanidine Active PO January 31, 2024 12:00am Start: 06-29-2023 tiZANidine (Za naflex) 4 MG tablet Indications: Cervical paraspinal muscle [...] 12/24/2023 Active ubidecarenone 100 mg oral capsule (5 sources) Start: 04-29-2023 Coenzyme Q10 (Co Q-10) 100 mg Capsule Active 100 MG PO Daily April 29, 2023 12:00am take 1 capsule by mo [facility] once in the morning coenzyme Q10 (CO Q-10) 100 mg capsule Ta ke 1 capsule (100 mg total) by mouth in the morning. 0 Active witch deidra 500 mg/ml medicated pad (1 source) Start: 05-28-2020 witch deidra-gl ycerin (TUCKS) pad Completed/Discontinued Medications Medication Drug Class(es) Dates Sig (Normalized) Sig (Original) ascorbic acid 60 mg / beta carotene 5000 unt / copper sulfate 40 mg / dl-alpha tocopheryl acetate 30 unt / sodium selenite 0.04 mg / zinc oxide 40 mg oral tablet (2 sources) Vitamin C End: 05-29-2020 take 1 tablet by mouth once daily Multiple Vitamins-Minerals (THERAPEUTIC MULTIVITAMIN-MECHANIST ALS) tablet Take 1 tablet by mouth [...] [Qualitative platelet defects] Onset: 3 12-10-2023 Chronic Esophageal disorders (2 sources) Gastroesophageal reflux disease; Translations: [Gastro-esophageal reflux disease without esophagitis] 01-31-2024 Chronic Headache; including migraine (10 sources) Refractory [...] [Streptococcal pharyngitis] Onset: 3 Resolved: 3 Episodic Regional enteritis and ulcerative colitis (20 sources) Ulcerative colitis; Translations: [Ulcerative pancolitis] Onset: 2 Resolved: 3 03-26-2015 Chronic Residual codes; unclassified (4 sources) Obstructive sleep [...] 11-04-2022 Episodic Other aftercare (1 source) Other terminal manager (current) drug therapy; Translations: [OTH PRISON CURRENT DRUG THERAPY] Onset: 11-06-2022 Episodic Other [...] Translations: [Nasal congestion] Onset: 05-24-2023 05-24-2023 Episodic Unclassified (1 source) CONTACT W/AND (SUSP) EXPOS COVID-19; Translations: [CONTACT W/AND (SUSP) EXPOS COVID-19] Onset: 10-28-2022 Results Test Name Value Interpretation Reference Range Facility HCG ( test) Ql (U)o n 01-05-2024 Beta HCG ( test) Ql (U) Negative Normal NEG [facility] Comment on above: Performed By: #### 2 106-3 #### [facility] ([id number]) [address] [place] [address] Surgical Pathologyon 024 Surgical Pathology Normal [facility] Comment on above: Result Comment: [facility] [address] [place] [address] Surgical Pathology Consultation Patient Name:RIRI ALEJANDRO:1995 (Age: 28)Gender:FTaken:4Reported:01/11/2024hysician(s):Hugo Friedman MD ([phone])Copy To: Rec. #:[id number]: #[id number] Final Pathologic Diagnosis Right and left tonsils (2 H&E): Tonsils, 2, with reactive chronic follicular lymphoid hyperplasia. Report Electronically Signed Out gp/01/11/2024Chino Soriano MD Interpret[place] [address], License number: [id number]. Clinical History tonsillar hypertrophy, sleep apnea, unspecified type, recurrent streptococcal tonsilitis, snoring. Gross Description Received in formalin labeled KOELSCH, right and left tonsils are bilateral tonsils, 2.1 x 1.8 x 1.2 cm and 2.3 x 1.6 x 1.4 cm. The specimen are sectioned to reveal uniform tonsillar architecture. Gis Software Engineer sections are submitted in cassettes A-B. (2, ss, [id number], m6) . /01/05/2024O Microscopic Findings Microscopic examination performed. Specimen(s) Received Right and left tonsils Fee Codes(s): 1; 96671 Amphetamine Screen Ql (U)Ord ered By: Jm Bell on 04-29-2023 Amphetamines Ql (U) Negative Negative [facility] Barbiturates [Presence] in U rine by Screen methodOrdered By: Jm Bell on 04-29-2023 Barbiturates Screen Ql (U) Negative Negative [facility] Benzodiazepines Screen Ql (U )Ordered By: Jm Bell on 04-29-2023 Benzodiazepines Ql (U) Negative Negative [facility] Benzoylecgonine [Presence] i n Urine by Screen methodOrdered By: Jm Bell on 04-29-2023 Benzoylecgonine Screen Ql (U) Negative Negative [facility] Cannabinoids [Presence] in U rine by Screen methodOrdered By: Jm Bell on 04-29-2023 Cannabinoids Screen Ql (U) Negative Negative [facility] Comment on above: These are unconfirme d results and should not be used for legal purposes. Drug Cut-Off Concentration: AMPH 1000 ng/mL DOUG 200 ng/mL PAZ 200 ng/mL COCM 300 ng/mL OP 300 ng/mL PCP 25 ng/mL THC 20 ng/mL Drug Screen,Urineon 04-29-20 Amphetamine Screen,Urine Negative Normal Negative [facility] Comment on above: Performed By: #### U RDS #### [facility] [address] Barbiturate Screen,Urine Negative Normal Negative [facility] Comment on above: Performed By: #### U RDS #### [place] [address] [place] Benzodiazepines Screen,Urine Negative Normal Negative [facility] Comment on above: Performed By: #### U RDS #### [place] [address] [place] Cannabinoid Screen,Urine Negative Normal Negative [facility] Comment on above: Result Comment: Thes e are unconfirmed results and should not be used for legal purposes. Drug Cut-Off Concentration: AMPH 1000 ng/mL DOUG 200 ng/mL PAZ 200 ng/mL COCM 300 ng/mL OP 300 ng/mL PCP 25 ng/mL THC 20 ng/mL PERFORMED BY: [place] [address] PATHOLOGIST FROG CATCHER BALDEMAR LUNSFORD M.D. Performed By: #### U RDS #### [address] Cocaine Screen,Urine Negative Normal Negative [facility] Comment on above: Performed By: #### U RDS #### [address] Opiate Screen,Urine Negative Normal Negative [facility] Comment on above: Performed By: #### U RDS #### [address] Phencyclidine Screen,Urine Negative Normal Negative [facility] Comment on above: Performed By: #### U RDS #### [address] HCG ( test) IA.rapi d Ql (U)Ordered By: Jm Bell on 04-29-2023 HCG ( test) Ql (U) Negative [facility] HCG,Urineon 04-29-2023 Beta HCG ( test) Ql (U) Negative Normal [facility] Comment on above: Result Comment: PERF ORMED BY: [place] [address] PATHOLOGIST FROG CATCHER BALDEMAR LUNSFORD M.D. Performed By: #### U HCG #### [place] [address] [place] 04-29-2023 L Specimen: [id number] Received: 04/29/23 Status: MAL Torres Num: [id number] Spec Type: Surgical Subm Dr: Jm Bell MD Tissues: A Colon Biopsy (RANDOM COLON BX) B Colon Biopsy (SIGMOID POLYP) Procedures: NATASHA/Farhad Gross/Micro L4/2 Age/ Patient Sex Location Account Attending Physician Riri Alejandro 27/F [id number] Jm Bell MD SPEC NUM: [id number] RECD: 04/29/23 STATUS: MAL DOCKERY: [id number] SRIRAM: 04/29/23- [facility] DR: Jm Bell MD ENTERED: 04/29/[address] [facility] DR: SPEC TYPE: Surgical DEPT: S ORDERED: HE/4, Gross/Micro [...] The microscopic examination confirms the diagnosis. Specimen: [id number] Received: 04/29/23 Status: MAL [facility] Num: [id number] Spec Type: Surgical Subm Dr: Jm Bell MD Tissues: A Colon Biopsy (RANDOM COLON BX) B Colon Biopsy (SIGMOID POLYP) Procedures: HE/4, Gross/Micro L4/2 Patient: Gume Alejandroaura Jimenez [id number] (Continued) Specimen: [id number] Received: 04/29/23 (Continued) Signed (signature on file) Murtaza Erazo MD 05/03/231311 Specimen: [id number] Received: 04/29/23 Status: MAL Brian Num: [id number] Spec Type: Surgical Subm Dr: Jm Bell MD Tissues: A Colon Biopsy (RANDOM COLON BX) B Colon Biopsy (SIGMOID POLYP) Procedures: NATASHA/Farhad, Lorene/Rod L4/2 Patient: JavonRiri [id number] (Continued) Specimen: [id number] Received: 04/29/23 (Continued) CPT Codes 18896 x 2 Specimen: [id number] Received: 04/29/23 Status: MAL Farahjames Num: [id number] Spec Type: Surgical Subm Dr: Jm Bell MD Tissues: A Colon Biopsy (RANDOM COLON BX) B Colon Biopsy (SIGMOID POLYP) Procedures: HE/Farhad, Gross/Micro L4/2 Patient: Riri Alejandro [id number] (Continued) Signed (signature on file) Murtaza Erazo MD 05/03/23 1312 Normal [facility] Opiates [Presence] in Urine by Screen methodOrdered By: Jm Bell on 04-29-2023 Opiates Screen Ql (U) Negative Negative Fir [facility] Phencyclidine Screen Ql (U)O rdered By: Jm Bell on 04-29-2023 Phencyclidine Ql (U) Negative Negative [facility] CBC with Diffon 02-15-2023 Abs. Basophil 0.06 k/uL Normal 0.00-0.20 [facility] Comment on above: Performed By: #### C P, CDP #### [facility] [address] [place] [address] Eeg Tech: Jose A Pastor MD Abs.Imm.Granulocyte 0.04 k/uL Normal 0.00-0.30 [facility] Comment on above: Performed By: #### C P, CDP #### [facility] [address] [place] [address] Eeg Tech: Jose A Pastor MD Abs.Neutrophil (Seg) 9.14 k/uL High 1.50-8.10 [facility] Comment on above: Performed By: #### C P, CDP #### [facility] [address] [place], [facility] Eeg Tech: Jose A Pastor MD Basophils/100 WBC (Bld) 1 % Normal 0-2 [facility] Comment on above: Performed By: #### C P, CDP #### [facility] [address] [place] [address] Eeg Tech: Jose A Pastor MD Eosinophils (Bld) [#/Vol] 0.12 10*3/uL Normal 0.00-0.44 [facility] Comment on above: Performed By: #### C P, CDP #### [facility] [address] [place], [place] [id number] Eeg Tech: Jose A Pastor MD Eosinophils/100 WBC (Bld) 1 % Normal 1-4 [facility] Comment on above: Performed By: #### C P, CDP #### [address] [place], [facility] Eeg Tech: Jose A Pastor MD Erythrocyte distribution width (RBC) [Ratio] 15.1 % High 11.8-14.4 [facility] Comment on above: Performed By: #### C P, CDP #### [address] [place], [facility] Eeg Tech: Jose A Pastor MD Hematocrit (Bld) [Volume fraction] 37.5 % Normal 36.3-47.1 [facility] Comment on above: Performed By: #### C P, CDP #### [address] [place], [facility]83 Eeg Tech: Jose A Pastor MD Hemoglobin (Bld) [Mass/Vol] 12.2 g/dL Normal 11.9-15.1 [facility] Comment on above: Performed By: #### C P, CDP #### [address] [place], [facility] Eeg Tech: Jose A Pastor MD Immature granulocytes/100 WBC (Bld) 0 % Normal 0 [facility] Comment on above: Performed By: #### C P, CDP #### [address] [place] [address] Eeg Tech: Jose A Pastor MD Lymphocytes (Bld) [#/Vol] 2.00 10*3/uL Normal 1.10-3.70 [facility] Comment on above: Performed By: #### C P, CDP #### [address] [place], [place] [id number] Eeg Tech: Jose A Pastor MD Lymphocytes/100 WBC (Bld) 17 % Low 24-43 [facility] Comment on above: Performed By: #### C P, CDP #### [facility] [address] [place], [place] 6[address] Eeg Tech: Jose A Pastor MD MCH (RBC) [Entitic mass] 27.2 pg Normal 25.2-33.5 [facility] Comment on above: Performed By: #### C P, CDP #### [facility] [address] [place], [place] 227[address] Eeg Tech: Jose A Pastor MD MCHC (RBC) [Mass/Vol] 32.5 g/dL Normal 28.4-34.8 [facility] Comment on above: Performed By: #### C P, CDP #### [address] [place], [place] 8[address] Eeg Tech: Jose A Pastor MD MCV (RBC) [Entitic vol] 83.5 fL Normal 82.6-102.9 [facility] Comment on above: Performed By: #### C P, CDP #### [address] [place], [place] [address] Eeg Tech: Jose A Pastor MD Monocytes (Bld) [#/Vol] 0.78 10*3/uL Normal 0.10-1.20 [facility] Comment on above: Performed By: #### C P, CDP #### [facility] [address] [place], [place] [address] Eeg Tech: Jose A Pastor MD Monocytes/100 WBC (Bld) 6 % Normal 3-12 [facility] Comment on above: Performed By: #### C P, CDP #### [facility] [address] [place], [place] 2[address] Eeg Tech: Jose A Pastor MD Neutrophil (Seg) 75 % High 36-65 [facility] Comment on above: Performed By: #### C P, CDP #### [facility] [address] [place], [place] [address] Eeg Tech: Jose A Pastor MD NRBC Automated 0.0 per 100 WBC Normal 0.0 [facility] Comment on above: Performed By: #### C P, CDP #### [facility] [address] [place], [place] [address] Eeg Tech: Jose A Pastor MD Platelet mean volume (Bld) [Entitic vol] 9.8 fL Normal 8.1-13.5 [facility] Comment on above: Performed By: #### C P, CDP #### [facility] [address] [place], [place] [address] Eeg Tech: Jose A Pastor MD Platelets (Bld) [#/Vol] 318 10*3/uL Normal 138-453 [facility] Comment on above: Performed By: #### C P, CDP #### [address] [place], [place] [address]83 Eeg Tech: Jose A Pastor MD RBC (Bld) [#/Vol] 4.49 10*6/uL Normal 3.95-5.11 [facility] Comment on above: Performed By: #### C P, CDP #### [address] [place], [place] [address]83 Eeg Tech: Jose A Pastor MD WBC (Bld) [#/Vol] 12.1 10*3/uL High 3.5-11.3 [facility] Comment on above: Performed By: #### C P, CDP #### [address] [place], [place] [address]83 Eeg Tech: Jose A Pastor MD CT SOFT TISSUE NECK W CONTRA STon 02-15-2023 CT SOFT TISSUE NECK W CONTRAST [...] patterns consistent with tonsillitis. No peritonsillar abscess (LAMINATION MACHINE OPERATOR) is identified. The hypopharynx, larynx, and upper esophagus are within normal limits. The major vessels of the neck enhance symmetrically. There is mild bilateral cervical lymphadenopathy with right level IIa lymph nodes measuring up to 16 mm in short axis, likely reactive. No acute osseous abnormality is visualized. IMPRESSION: Bilateral tonsillitis, without evidence of LAMINATION MACHINE OPERATOR at this time. Mild bilateral cervical lymphadenopathy, likely reactive. RECOMMENDATIONS: Unavailable Interpreted by: Manny Jaimes MD Signed by: Manny Jaimes MD 02/15/23 Final result Normal [facility] Comp Metabolic Profon 2022 Albumin [Mass/Vol] 4.1 g/dL Normal 3.5-5.2 [facility] Comment on above: Performed By: #### C P, CDP #### [facility] [address] [place] [address] Eeg Tech: Jose A Pastor MD Albumin/Glob Ratio 1.1 Normal 1.0-2.5 [facility] Comment on above: Performed By: #### C P, CDP #### [facility] [address] [place] [address] Eeg Tech: Jose A Pastor MD Alkaline Phos 45 U/L Normal 35-104 [facility] Comment on above: Performed By: #### C P, CDP #### [facility] [address] [place], [place] [address] Eeg Tech: Jose A Pastor MD ALT [Catalytic activity/Vol] 10 U/L Normal 5-33 [facility] Comment on above: Performed By: #### C P, CDP #### [facility] [address] [place], [place] 6[address] Eeg Tech: Jose A Pastor MD Anion gap [Moles/Vol] 11 mmol/L Normal 9-17 [facility] Comment on above: Performed By: #### C P, CDP #### [facility] [address] [place], [place] [address] Eeg Tech: Jose A Pastor MD AST [Catalytic activity/Vol] 11 U/L Normal <32 [facility] Comment on above: Performed By: #### C P, CDP #### [facility] [address] [place], [place] [id number] Eeg Tech: Jose A Pastor MD Bilirubin [Mass/Vol] 0.4 mg/dL Normal 0.3-1.2 [facility] Comment on above: Performed By: #### C P, CDP #### [facility] [address] [place], [place] [address] Eeg Tech: Jose A Pastor MD BUN/CRE Ratio 23 High 9-20 [facility] Comment on above: Performed By: #### C P, CDP #### [facility] [address] [place], [place] 8[address]83 Eeg Tech: Jose A Pastor MD Calcium [Mass/Vol] 9.6 mg/dL Normal 8.6-10.4 [facility] Comment on above: Performed By: #### C P, CDP #### [facility] [address] [place], [place] [address] Eeg Tech: Jose A Pastor MD Chloride [Moles/Vol] 102 mmol/L Normal 98-107 [facility] Comment on above: Performed By: #### C P, CDP #### [facility] [address] [place] [address] Eeg Tech: Jose A Pastor MD CO2 [Moles/Vol] 26 mmol/L Normal 20-31 [facility] Comment on above: Performed By: #### C P, CDP #### [facility] [address] [place] [address] Eeg Tech: Jose A Pastor MD Creatinine [Mass/Vol] 0.73 mg/dL Normal 0.50-0.90 [facility] Comment on above: Performed By: #### C P, CDP #### [facility] [address] [place] [address] Eeg Tech: Jose A Pastor MD GFR/1.73 sq M.predicted among non-blacks MDRD (S/P/Bld) [Vol rate/Area] mL/min/{1.73_m2} Normal >60 [facility] Comment on above: Result Comment: These [...] C P, CDP #### [facility] [address] [place] [address] Eeg Tech: Jose A Pastor MD Glucose [Mass/Vol] 83 mg/dL Normal 70-99 [facility] Comment on above: Performed By: #### C P, CDP #### [facility] [address] [place] [address] Eeg Tech: Jose A Pastor MD Potassium [Moles/Vol] 4.0 mmol/L Normal 3.7-5.3 [facility] Comment on above: Performed By: #### C P, CDP #### [facility] [address] [place], [place] [address] Eeg Tech: Jose A Pastor MD Protein [Mass/Vol] 7.7 g/dL Normal 6.4-8.3 [facility] Comment on above: Performed By: #### C P, CDP #### [facility] [address] [place], [place] [id number] Eeg Tech: Jose A Pastor MD Sodium [Moles/Vol] 139 mmol/L Normal 135-144 [facility] Comment on above: Performed By: #### C P, CDP #### [facility] [address] [place], [place] [id number] Eeg Tech: Jose A Pastor MD Urea nitrogen [Mass/Vol] 17 mg/dL Normal 6-20 [facility] Comment on above: Performed By: #### C P, CDP #### [facility] [address] [place], [place] [id number] Eeg Tech: Jose A Patsor MD Strep Gr A Direct Agon 02-15 Strep Gr A Direct Ag Positive Abnormal NEG [facility] Comment on above: Result Comment: for Group A Streptococci Performed By: #### R GPA #### [address] [place], [facility] Eeg Tech: Jose A Pastor MD Source .THROAT SWAB Normal [facility] Comment on above: Performed By: #### R GPA #### [facility] [address] [place], [place] [id number] Eeg Tech: Jose A Pastor MD CBC AUTO DIFFon 01-30-2023 BASO # 0.1 103/ul Normal 0.0-0.[address] [facility] Comment on above: Performed By: #### C BC #### [facility] [address] [address] [address] Arpan Clark Basophils/100 WBC (Bld) 0.4 % Normal 0.2-2.[address] [facility] Comment on above: Performed By: #### C BC #### [facility] [address] [place] [address] Dr. Arpan Clark EO # 0.1 103/ul Normal 0.0-0.7 [facility] Comment on above: Performed By: #### C BC #### [facility] [address] [place] [address] Dr. Arpan Clark Eosinophils/100 WBC (Bld) 0.7 % Critically low 0.9-7.[address] [facility] Comment on above: Performed By: #### C BC #### [facility] [address] [place] [address] Dr. Arpan Clark Erythrocyte distribution width (RBC) [Ratio] 15.2 % Critically high 11.0-15.[address] [facility] Comment on above: Performed By: #### C BC #### [facility] [address] [place] [address] Dr. Arpan Clark Hematocrit (Bld) [Volume fraction] 41.1 % Normal 36.0-48.[address] [facility] Comment on above: Performed By: #### C BC #### [facility] [address] [place] [address] Dr. Arpan Clark Hemoglobin (Bld) [Mass/Vol] 13.4 g/dL Normal 12.0-16.[address] [facility] Comment on above: Performed By: #### C BC #### [facility] [address] [place] [address] Dr. Arpan Clark IG # 0.05 10e3/ul Critically high 0.00-0.03 [facility] Comment on above: Performed By: #### C BC #### [facility] [address] [place] [address] Dr. Arpan Clark IG % 0.4 % Normal 0.0-0.[address] [facility] Comment on above: Performed By: #### C BC #### [facility] [address] [place] [address] Dr. Arpan Clark LYMPH # 1.6 103/ul Normal 1.2-3.[address] [facility] Comment on above: Performed By: #### C BC #### [facility] [address] [place] [address] Dr. Arpan Clark Lymphocytes/100 WBC (Bld) 12.0 % Critically low 20.5-60.[address] [facility] Comment on above: Performed By: #### C BC #### [facility] [address] [place] [address] Dr. Arpan Clark MANUAL DIFF REQ NO Normal [facility] Comment on above: Performed By: #### C BC #### [facility] [address] [place] [address] Dr. Arpan Clark MCH (RBC) [Entitic mass] 27.2 pg Normal 26.7-34.[address] [facility] Comment on above: Performed By: #### C BC #### [facility] [address] [place] [address] Dr. Arpan Clark MCHC (RBC) [Mass/Vol] 32.6 g/dL Normal 29.9-35.[address] [facility] Comment on above: Performed By: #### C BC #### [facility] [address] [place] [address] Dr. Arpan Clark MCV (RBC) [Entitic vol] 83.5 fL Normal 81.0-99.[address] [facility] Comment on above: Performed By: #### C BC #### [facility] [address] [place] [address] Dr. Arpan Clark MONO # 1.3 103/ul Critically high 0.3-0.8 [facility] Comment on above: Performed By: #### C BC #### [facility] [address] [place] [address] Dr. Arpan Clark Monocytes/100 WBC (Bld) 9.5 % Normal 1.7-12.[address] [facility] Comment on above: Performed By: #### C BC #### [facility] [address] [place] [address] Dr. Arpan Clark NEUT # 10.2 103/ul Critically high 1.4-6.5 [facility] Comment on above: Performed By: #### C BC #### [facility] [address] [place] [address] Dr. Arpan Clark Neutrophils/100 WBC (Bld) 77.0 % Critically high 43.0-75.[address] [facility] Comment on above: Performed By: #### C BC #### [facility] [address] [place] [address] Dr. Arpan Clark Platelet mean volume (Bld) [Entitic vol] 9.1 fL Critically low 9.5-13.5 [facility] Comment on above: Performed By: #### C BC #### [facility] [address] [place] [address] Dr. Arpan Clark PLT 288 103/ul Normal 150-450 [facility] Comment on above: Performed By: #### C BC #### [facility] [address] [place] [address] Dr. Arpan Clark RBC 4.92 106/ul Normal 4.20-5.40 [facility] Comment on above: Performed By: #### C BC #### [facility] [address] [place] [address] Dr. Arpan Clark WBC 13.2 103/ul Critically high 4.0-11.0 [facility] Comment on above: Performed By: #### C BC #### [facility] [address] [place] [address] Dr. Arpan Clark CULTURE BLOODon 01-30-2023 Microscopic examination of blood, culture Culture Observations: NO GROWTH AT [address] [facility] Comment on above: Performed By: #### B [id number] #### [facility] [address] [place] [address] Dr. Arpan Clark Microscopic examination of blood, culture Culture Observations: NO GROWTH AT [address] [facility] Comment on above: Performed By: #### B [id number] #### [facility] [address] [place] [address] Dr. Arpan Clark LACTATE/LACTIC ACIDon 2022 Lactate [Moles/Vol] 1.3 mmol/L Normal 0.4-2.0 [facility] Comment on above: Performed By: #### L ACT #### [facility] [address] [place] [address] Dr. Arpan Clark MONOon 01-30-2023 Monocytes (Bld) [#/Vol] Negative Normal NEGATIVE [facility] Comment on above: Performed By: #### M ELADIO #### [facility] [address] [place] [address] Dr. Arpan Clark PROF 14(COMP METB)on 023 Albumin [Mass/Vol] 4.0 g/dL Normal 3.4-5.0 [facility] Comment on above: Performed By: #### C MP #### [facility] [address] [place] [address] Dr. Arpan Clark Albumin/Globulin [Mass ratio] 0.8 {ratio} Normal [facility] Comment on above: Performed By: #### C MP #### [facility] [address] [place] [address] Dr. Arpan Clark ALP [Catalytic activity/Vol] 70 U/L Normal 46-[address] [facility] Comment on above: Performed By: #### C MP #### [facility] [address] [place] [address] Dr. Arpan Clark ALT [Catalytic activity/Vol] 16 U/L Normal 14-[address] [facility] Comment on above: Performed By: #### C MP #### [facility] [address] [place] [address] Dr. Arpan Clark Anion gap [Moles/Vol] 14.8 mmol/L Normal [facility] Comment on above: Performed By: #### C MP #### [facility] [address] [place] [address] Dr. Arpan Clark AST [Catalytic activity/Vol] 14 U/L Critically low 15-[address] [facility] Comment on above: Performed By: #### C MP #### [facility] [address] [place] [address] Dr. Arpan Clark Bilirubin [Mass/Vol] 0.5 mg/dL Normal 0.2-1.[address] [facility] Comment on above: Performed By: #### C MP #### [facility] [address] [place] [address] Dr. Arpan Clark Calcium [Mass/Vol] 9.3 mg/dL Normal 8.5-10.1 [facility] Comment on above: Performed By: #### C MP #### [facility] [address] [address] [address] Arpan Clark Chloride [Moles/Vol] 100 mmol/L Normal 98-107 [facility] Comment on above: Performed By: #### C MP #### [facility] [address] [place] [address] Dr. Arpan Clark CO2 [Moles/Vol] 23.8 mmol/L Normal 21.0-32.0 [facility] Comment on above: Performed By: #### C MP #### [facility] [address] [place] [address] Dr. Arpan Clark Creatinine [Mass/Vol] 0.88 mg/dL Normal 0.55-1.[address] [facility] Comment on above: Performed By: #### C MP #### [facility] [address] [place] [address] Dr. Arpan Clark EGFR-AF [place] ISLANDER >60 Normal >=60 [facility] Comment on above: Performed By: #### C MP #### [facility] [address] [place] [address] Dr. Arpan Clark EGFR-NON AF [place] ISLANDER >60 Normal >=60 [facility] Comment on above: Performed By: #### C MP #### [facility] [address] [address] [address] Arpan Clark Globulin (S) [Mass/Vol] 4.8 g/dL Normal [facility] Comment on above: Performed By: #### C MP #### [facility] [address] [place] [address] Dr. Arpan Clark Glucose [Mass/Vol] 98 mg/dL Normal 74-106 [facility] Comment on above: Performed By: #### C MP #### [facility] [address] [address] [address] Arpan Clark Potassium [Moles/Vol] 3.6 mmol/L Normal 3.5-5.[address] [facility] Comment on above: Performed By: #### C MP #### [facility] [address] [address] [address] Arpan Clark Protein [Mass/Vol] 8.8 g/dL Critically high 6.4-8.2 [facility] Comment on above: Performed By: #### C MP #### [facility] [address] [address] [address] Arpan Clark Sodium [Moles/Vol] 135 mmol/L Critically low 136-145 [facility] Comment on above: Performed By: #### C MP #### [facility] [address] [address] [address] Arpan Clark Urea nitrogen [Mass/Vol] 21.0 mg/dL Critically high 7.0-18.[address] [facility] Comment on above: Performed By: #### C MP #### [facility] [address] [address] [address] Arpan Clark Urea nitrogen/Creatinine [Mass ratio] 23.9 mg/mg Normal [facility] Comment on above: Performed By: #### C MP #### [facility] [address] [address] [address] Arpan Clark STREPT SCREENon 01-30-2023 STREP SCREEN A Positive Abnormal NEGATIVE [facility] Comment on above: Performed By: #### S SCRN #### [facility] [address] [address] [address] Arpan Clark XR CHEST 2 Von [...] BRI GREER Date: 2022-11-05 14:15 Normal [facility] Covid-19 PCR (CVDTB)on 10-09 SARS-CoV-2 (COVID-19) RNA MAG+probe Ql (Unsp spec) Not detected Normal NOT DETECTED [facility] Comment on above: Result Comment: This test is not yet approved or cleared by the [place] FDA. When there are no FDA-approved or cleared tests available, and other criteria are met, FDA can make tests available under an emergency access mechanism called an Emergency Use Authorization (EUA). The EUA for this test is supported by the [place] of Health and Human Service's (HHS's) declaration [...] SARS-CoV-2. Performed By: #### C VDTBH #### [facility] [address] [place] [address] Dr. Arpan Clark INFLUENZA A AND B AGon 10-28 INFLUENZA A AG Negative Normal NEGATIVE SEE COMMENT [facility] Comment on above: Performed By: #### I NFLUAB #### [facility] [address] [place] [address] Dr. Arpan Clark INFLUENZA B AG Negative Normal NEGATIVE SEE COMMENT [facility] Comment on above: Performed By: #### I NFLUAB #### [facility] [address] [place] [address] Dr. Arpan Clark INTERNAL CONTROLS Within Normal Limits Normal Wi thin Normal Limits [facility] Comment on above: Performed By: #### I NFLUAB #### [facility] [address] [place] [address] Dr. Arpan Clark CBCon 05-28-2020 Erythrocyte distribution width (RBC) [Ratio] 19.3 % High 11.8 - 14.4 % [place] Hematocrit (Bld) [Volume fraction] 30.4 % Low 36.3 - 47.1 % [place] Hemoglobin (Bld) [Mass/Vol] 9.2 g/dL Low 11.9 - 15.1 g/dL [place] Interpretation and review of laboratory results Abnormal [place] MCH (RBC) [Entitic mass] 22.6 pg Low 25.2 - 33.5 pg [place] MCHC (RBC) [Mass/Vol] 30.3 g/dL 28.4 - 34.8 g/dL [place] MCV (RBC) [Entitic vol] 74.7 fL Low 82.6 - 102.9 fL [place] Platelet mean volume (Bld) [Entitic vol] 10.1 fL 8.1 - 13.5 fL [place] Platelets (Bld) [#/Vol] 283 10*3/uL [place] RBC (Bld) [#/Vol] 4.07 10*6/uL 3.95 - 5.1 1 m/uL [place] WBC (Bld) [#/Vol] 0.0 10*3/uL 0.0 per 10 0 WBC [place] WBC (Bld) [#/Vol] 13.1 10*3/uL [place] Chlamydia trachomatis DNA, U rineon 05-28-2020 C. trachomatis DNA ,Urine Negative NEGATIVE [place] Comment on above: CHLAMYDIA TRACHOMATI S [...] alternative nucleic acid target. Specimen Description .URINE [place] CBC auto differentialon 05-09 Basophils (Bld) [#/Vol] 0.03 10*3/uL [place] Basophils/100 WBC (Bld) 0 % 0 - 2 % [place] Differential Type NOT REPORTED [place] Eosinophils (Bld) [#/Vol] 0.31 10*3/uL [place] Eosinophils/100 WBC (Bld) 3 % 1 - 4 % [place] Erythrocyte distribution width (RBC) [Ratio] 19.0 % High 11.8 - 14.4 % [place] Hematocrit (Bld) [Volume fraction] 32.8 % Low 36.3 - 47.1 % [place] Hemoglobin (Bld) [Mass/Vol] 9.8 g/dL Low 11.9 - 15.1 g/dL [place] Immature granulocytes (Bld) [#/Vol] 0.07 10*3/uL [place] Immature granulocytes (Bld) [#/Vol] 1 % High 0 [place] Interpretation and review of laboratory results Abnormal [place] Lymphocytes (Bld) [#/Vol] 1.62 10*3/uL [place] Lymphocytes/100 WBC (Bld) 17 % Low 24 - 43 % [place] MCH (RBC) [Entitic mass] 22.5 pg Low 25.2 - 33.5 pg [place] MCHC (RBC) [Mass/Vol] 29.9 g/dL 28.4 - 34.8 g/dL [place] MCV (RBC) [Entitic vol] 75.2 fL Low 82.6 - 102.9 fL [place] Monocytes (Bld) [#/Vol] 0.75 10*3/uL [place] Monocytes/100 WBC (Bld) 8 % 3 - 12 % [place] Platelet mean volume (Bld) [Entitic vol] 9.9 fL 8.1 - 13.5 fL [place] Platelets (Bld) [#/Vol] NOT REPORTED [place] Platelets (Bld) [#/Vol] 324 10*3/uL [place] RBC (Bld) [#/Vol] 4.36 10*6/uL 3.95 - 5.1 1 m/uL [place] RBC morphology finding Nom (Bld) NOT REPORTED [place] Segmented neutrophils/100 WBC (Bld) 71 % High 36 - 65 % [place] Segs Absolute 6.79 [place] WBC (Bld) [#/Vol] 0.0 10*3/uL 0.0 per 10 0 WBC [place] WBC (Bld) [#/Vol] 9.6 10*3/uL [place] WBC Morphology NOT REPORTED [place] DRUG SCREEN MULTI URINEon Amphetamine Screen, Ur Negative NEGATIVE [place] Barbiturate Screen, Ur Negative NEGATIVE [place] Benzodiazepine Screen, Urine Negative NEGATIVE [place] Buprenorphine Urine Negative NEGATIVE [place] Cannabinoid Scrn, Ur Negative NEGATIVE [place] Cocaine Metabolite, Urine Negative NEGATIVE [place] MDMA, Urine NOT REPORTED NEGATIVE [place] Methadone Screen, Urine Negative NEGATIVE [place] Methamphetamine, Urine Negative NEGATIVE [place] Opiates, Urine Negative NEGATIVE [place] Oxycodone Screen, Ur Negative NEGATIVE [place] Phencyclidine, Urine Negative NEGATIVE [place] Propoxyphene, Urine Negative NEGATIVE [place] Test Information NOT REPORTED [place] Tricyclic Antidepressants, Urine Negative NEGATIVE [place] Comment on above: Drug screen results are to be used for medical purposes only. All positive results are unconfirmed. Testing for employment or legal uses should be sent to a reference laboratory for confirmation. GBS, External Resulton 04-30 GBS, External Result Negative [place] Comment on above: confirmed with Ion bird RN Urinalysison 04-23-2020 Bilirubin Urine Negative NEGATIVE [place] Color, UA YELLOW YELLOW [place] Glucose, Ur Negative NEGATIVE [place] Interpretation and review of laboratory results Abnormal [place] Ketones Ql (U) Negative NEGATIVE [place] Leukocyte esterase Test strip Ql (U) Negative NEGATIVE [place] Nitrite, Urine Negative NEGATIVE [place] pH, UA 6.0 [place] Protein (U) [Mass/Vol] Negative NEGATIVE [place] Specific [place], UA >1.030 High [place] Turbidity UA CLEAR CLEAR [place] Urinalysis Comments NOT REPORTED [place] Urine Hgb Negative NEGATIVE [place] Urobilinogen, Urine Normal Normal [place] ABO, External Resulton 10-26 ABO, External Result A [place] Comment on above: confirmed with Ion bird RN C. Trachomatis, External Res ulton 10-26-2019 C. Trachomatis, External Result Positive [place] Comment on above: confirmed with Ion bird RN HIV, External Resulton 10-26 HIV, External Result NON-REACTIVE [place] Comment on above: confirmed with Ion bird RN Hepatitis B, External Result on 10-26-2019 Hep B, External Result NON-REACTIVE [place] Comment on above: confirmed with Ion bird RN N. Gonorrhoeae, External Res ulton 10-26-2019 N. Gonorrhoeae, External Result Negative [place] Comment on above: confirmed with Ion bird RN RPR, External Labon 10-26-20 19 RPR, External Result NON-REACTIVE [place] Comment on above: confirmed with Ion bird RN Rh Factor, External Resulton 10-26-2019 Rh Factor, External Result Positive [place] Comment on above: confirmed with Ion bird RN Rubella Titer, External Resu lton 10-26-2019 Rubella Titer, External Result IMMUNE [place] Comment on above: confirmed with Ion bird RN Progress Noteon 01-12-2018 HIM IP Note OR Search Analyst Normal [facility] Vital Signs Date Time Vital Sign Value Performing Clinician Facility 01-31-2024 09:19-0400 Body height 160.66 cm [facility] 01-31-2024 09:19-0400 Body mass index (BMI) [Ratio] 36.5 kg/m2 [facility] 01-31-2024 09:19-0400 Body weight 94.34 kg [facility] 01-31-2024 09:19-0400 Diastolic blood pressure 86 mm[Hg] [facility] 01-31-2024 09:19-0400 Heart rate 76 /min [facility] 01-31-2024 09:19-0400 Systolic blood pressure 113 mm[Hg] [facility] 12-29-2023 11:49-0500 Body height 160 cm [facility] 12-29-2023 11:49-0500 Body mass index (BMI) [Ratio] 38.97 kg/m2 [facility] 12-29-2023 11:49-0500 Body weight 99.79 kg [facility] 12-22-2023 14:45-0500 Body mass index (BMI) [Ratio] 39.15 kg/m2 Myriam Sunshineo CNM Work Phone: [facility] 12-22-2023 14:45-0500 Body weight 100.25 kg Myriam Sunshineo CNM Work Phone: [facility] 12-22-2023 14:45-0500 Diastolic blood pressure 80 mm[Hg] Myriam Floro CNM Work Phone: [facility] 12-22-2023 14:45-0500 Systolic blood pressure 120 mm[Hg] Myriam Sunshineo CNM Work Phone: [facility] 12-07-2023 11:22-0500 Body height 160 cm Naomie Thrasher MD Work Phone: [facility] 12-07-2023 11:22-0500 Body mass index (BMI) [Ratio] 36.67 kg/m2 Naomie Thrasher MD Work Phone: [facility] 12-07-2023 11:22-0500 Body weight 93.89 kg Naomie Thrasher MD Work Phone: [facility] 12-07-2023 11:22-0500 Diastolic blood pressure 79 mm[Hg] Naomie Thrasher MD Work Phone: [facility] 12-07-2023 11:22-0500 Heart rate 75 /min Naomie Thrasher MD Work Phone: [facility] 12-07-2023 11:22-0500 Systolic blood pressure 137 mm[Hg] Naomie Thrasher MD Work Phone: [facility] 07-29-2023 15:15-0400 Body height 160.66 cm Jm Franzormack Other [employer] Other 07-29-2023 15:15-0400 Body mass index (BMI) [Ratio] 37.78 kg/m2 Jm Chirag Other [employer] Other 07-29-2023 15:15-0400 Body weight 97.52 kg Jm Chirag Other [employer] Other 07-29-2023 15:15-0400 Diastolic blood pressure 76 mm[Hg] Jm Chirag Other [employer] Other 07-29-2023 15:15-0400 Systolic blood pressure 110 mm[Hg] Jm Bell Other [employer] Other 04-29-2023 14:13-0400 Diastolic blood pressure 91 mm[Hg] OPERATIONAL COMMUNICATION CHIEF-C Maegan Lara Work Phone: [facility] 04-29-2023 14:13-0400 Heart rate 75 /min OPERATIONAL COMMUNICATION CHIEF-C Maeganzaheer Lunamer Work Phone: [facility] 04-29-2023 14:13-0400 Respiratory rate 16 /min OPERATIONAL COMMUNICATION CHIEF-C Maeganzaheer Lunamer Work Phone: [facility] 04-29-2023 14:13-0400 SaO2% (BldA) [Mass fraction] 99 % OPERATIONAL COMMUNICATION CHIEF-C Maegan Lara Work Phone: [facility] 04-29-2023 14:13-0400 Systolic blood pressure 125 mm[Hg] OPERATIONAL COMMUNICATION CHIEF-C Maegan Lara Work Phone: [facility] 04-29-2023 12:23-0400 Body height 160.02 cm OPERATIONAL COMMUNICATION CHIEF-C Maegan Lara Work Phone: [facility] 04-29-2023 12:23-0400 Body temperature 99.2 [degF] OPERATIONAL COMMUNICATION CHIEF-C Maegan Lara Work Phone: [facility] 04-29-2023 12:23-0400 Body weight 90.71 kg OPERATIONAL COMMUNICATION CHIEF-C Maegan Lara Work Phone: [facility] 02-09-2023 14:15-0400 Body height 160.66 cm Jm Chirag Other [employer] Other 02-09-2023 14:15-0400 Body mass index (BMI) [Ratio] 33.39 kg/m2 Jm Chirag Other [employer] Other 02-09-2023 14:15-0400 Body weight 86.18 kg Jm Bell Other [employer] Other 02-09-2023 14:15-0400 Diastolic blood pressure 101 mm[Hg] Jm Chirag Other [employer] Other 02-09-2023 14:15-0400 Systolic blood pressure 144 mm[Hg] Jm Chirag Other [employer] Other 12-30-2021 15:30-0500 Body height 160.66 cm Jm Bell Other [employer] Other 12-30-2021 15:30-0500 Body mass index (BMI) [Ratio] 35.85 kg/m2 Jm Bell Other [employer] Other 12-30-2021 15:30-0500 Body weight 92.53 kg Jm Bell Other [employer] Other 05-29-2020 07:10-0400 Body Temperature 98.2 [degF] [employer] [place] 05-29-2020 07:10-0400 BP Diastolic 55 mm[Hg] [employer] [place] , [place] 05-29-2020 07:10-0400 BP Systolic 105 mm[Hg] [facility] [employer] [place] , [place] 05-29-2020 07:10-0400 Pulse (Heart Rate) 70 /min [employer] [employer] [place] 05-29-2020 07:10-0400 Respiratory Rate 16 /min [employer] [place] 05-28-2020 00:11-0400 Pulse Oximetry 99 % [facility] [place] 05-27-2020 08:23-0400 BMI (Body Mass Index) 36.67 kg/m2 [facility] [employer] [place] 05-27-2020 08:23-0400 Body weight 93.89 kg [facility] [place] 05-27-2020 08:23-0400 Height 160 cm [employer] [employer] [place] , [place] 05-22-2020 15:33-0400 Body Temperature 98.01 [degF] [facility] [place] 05-22-2020 15:33-0400 BP Diastolic 73 mm[Hg] [facility] [place] , [place] 05-22-2020 15:33-0400 BP Systolic 118 mm[Hg] [facility] [place] , [place] 05-22-2020 15:33-0400 Pulse (Heart Rate) 111 /min Felecia [facility], [place] 05-22-2020 15:33-0400 Respiratory Rate 16 /min [facility] [place] 04-23-2020 21:26-0400 BMI (Body Mass Index) 33.66 kg/m2 Felecia [facility], [place] 04-23-2020 21:26-0400 Body weight 86.18 kg Felecia [facility] , [place] 04-23-2020 21:26-0400 Height 160 cm Felecia [facility] , [place] 04-23-2020 20:56-0400 Body Temperature 98.2 [degF] Felecia [facility], [place] 04-23-2020 20:56-0400 BP Diastolic 68 mm[Hg] Felecia [facility] , [place] 04-23-2020 20:56-0400 BP Systolic 120 mm[Hg] Felecia [facility] , [place] 04-23-2020 20:56-0400 Pulse (Heart Rate) 90 /min Felecia [facility], [place] 04-23-2020 20:56-0400 Respiratory Rate 18 /min Felecia [facility], [place] 08-23-2019 10:15-0400 BP Diastolic 71 mm[Hg] Raman [facility] , [place] 08-23-2019 10:15-0400 BP Systolic 105 mm[Hg] Raman [facility] , [place] 08-23-2019 10:15-0400 Pulse (Heart Rate) 74 /min Raman [facility], [place] 08-23-2019 10:15-0400 Pulse Oximetry 98 % Raman [facility] , [place] 08-23-2019 10:15-0400 Respiratory Rate 16 /min Raman [facility], [place] 08-23-2019 09:55-0400 Body Temperature 97.11 [degF] Raman [facility], [place] 08-23-2019 08:50-0400 BMI (Body Mass Index) 28.37 kg/m2 Raman [facility], [place] 08-23-2019 08:50-0400 Body weight 74.39 kg Raman [facility] , [place] 08-23-2019 08:50-1590 Height 161.9 cm Raman [facility] [place] , [place] Encounters Encounter Date Encounter Type Care Provider Facility Start: 03-27-2024 End: 03-27-2024 ambulatory EDELMIRA MCINTYRE Not Available Start: 01-31-2024 End: 01-31-2024 ambulatory [facility] Work Phone: Start: 01-31-2024 End: 01-31-2024 Patient encounter procedure [facility] G[facility] Work Phone: Start: 01-05-2024 End: 01-05-2024 Evaluation and management of inpatient [facility] Start: 01-05-2024 End: 01-05-2024 [facility] Start: 01-02-2024 Telephone encounter Hugo Friedman MD Work Phone: [facility] Start: 12-29-2023 End: 12-29-2023 Admission to [facility] Phone Call Provider 1 [facility] On [facility] Start: 12-29-2023 End: 12-29-2023 Evaluation and management of inpatient [facility] Start: 12-22-2023 End: 12-23-2023 ambulatory MYRIAM Zan GONSALEZO Not Available Start: 12-22-2023 End: 12-22-2023 Office outpatient visit 15 minutes Myriam L Floro CNM Work Phone: [facility] Comment on above: Folliculitis (Primar y Dx) Start: 12-22-2023 Bamboo flowsheet Myriam L Wilmer ro CNM Work Phone: [facility] Start: 12-22-2023 Bamboo flowsheet Myriam L Wilmer ro CNM Work Phone: [facility] Start: 12-21-2023 Telephone encounter Myriam Zan Gonsalezo CNM Work Phone: [facility] Start: 12-10-2023 Telephone encounter Angy Recinos RN [facility] Comment on above: Surgical [...] 07-29-2023 End: 07-29-2023 ambulatory Jm Bell Other [employer] Other Start: 07-29-2023 Office outpatient vi sit 15 minutes Jm Bell [facility] Start: 04-29-2023 End: 04-29-2023 ambulatory Maegan Lara Facility:[facility] Start: 04-29-2023 End: 04-29-2023 Admission to same day surgery center [employer]PERATIONAL COMMUNICATION CHIEF-C Maegan Lara Work Phone: [facility] Work Phone: Start: 04-29-2023 End: 04-29-2023 ambulatory OPERATIONAL COMMUNICATION CHIEF-C Maegan Lara Work Phone: [facility] Work Phone: Start: 03-17-2023 End: 03-18-2023 ambulatory MAEGAN LARA Facility:[facility] Start: 03-04-2023 Telephone encounter Jm Shin [facility] Start: 03-04-2023 End: 03-05-2023 ambulatory MAEGAN LARA [facility] [employer] Other Start: 02-22-2023 End: 02-22-2023 ambulatory Jm Bell Other [employer] Other Start: 02-22-2023 Telephone encounter Jm Shin kentrell [facility] Start: 02-18-2023 End: 02-18-2023 ambulatory Jm Bell Other [employer] Other Start: 02-18-2023 Telephone encounter Jm Shin kentrell [facility] Start: 02-15-2023 Emergency department patient visit MAEGAN LUNAMER [facility] Start: 02-09-2023 End: 02-09-2023 ambulatory Jm Bell Other [employer] Other Start: 02-09-2023 Office outpatient vi sit 15 minutes Jm Franzormack [facility] Start: 01-30-2023 End: 01-30-2023 ambulatory MAEGANZAHEER LUNAMER Facility:[facility] Start: 11-05-2022 End: 11-05-2022 ambulatory MAEGANZAHEER LUNAMER Facility:[facility] Start: 10-28-2022 End: 10-28-2022 ambulatory MAEGAN MARCO Facility:[facility] Start: 10-27-2022 End: 10-27-2022 ambulatory Jm Bell Other [employer] Other Start: 10-27-2022 Telephone encounter Jm Shin kentrell [facility] Start: 04-08-2022 End: 04-08-2022 ambulatory Jm Bell Other [employer] Other Start: 04-08-2022 Telephone encounter Jm pfeiffer [facility] Start: 02-06-2022 End: 02-06-2022 ambulatory Jm Chirag Other [employer] Other Start: 02-06-2022 Telephone encounter Jm Shin ck [facility] Start: 12-30-2021 End: 12-30-2021 ambulatory Jm Bell Other [employer] Other Start: 12-30-2021 Office outpatient vi sit 25 minutes Jm Chirag [facility] Start: 05-27-2020 End: 05-29-2020 Evaluation and management of inpatient Myriam Ray Work Phone: [facility] Start: 05-22-2020 End: 05-22-2020 Subsequent hospital visit by physician Felecia Paige Work Phone: [facility] Start: 04-23-2020 End: 04-23-2020 Subsequent hospital visit by physician Felecia Carpenter Work Phone: [facility] Labor and Delivery Start: 08-23-2019 End: 08-23-2019 Subsequent hospital visit by physician Raman Barnard Work Phone: [facility] OR Procedures Date Procedure Procedure Detail Performing Clinician Start: 06-09-2023 Adult depression scr eening assessment Angy Recinos RN Start: 04-29-2023 Colonoscopy OPERATIONAL COMMUNICATION CHIEF-C Buddy Lara Work Phone: Start: 05-28-2020 Blood [...] neoplasm of colon Colon cancer screen colonoscopy [place] Start: 08-18-2027 Colon cancer screen colonoscopy Colon cancer screen colonoscopy [place] Start: 05-20-2027 DTaP,Tdap and Td Vaccines (7 - Td or Tdap) DTaP,Tdap and Td Vaccines (7 - Td or Tdap) [facility] Start: 05-20-2027 DTaP/Tdap/Td vaccine (7 - Td) DTaP/Tdap/Td vaccine (7 - Td) [place] Start: 01-05-2025 Adult BMI Screening Adult BMI Screen ing [facility] Start: 01-05-2025 Tobacco Screening Tobacco Screening [facility] Start: 12-29-2024 Adult BMI Screening Adult BMI Screen ing [facility] Start: 12-29-2024 Tobacco Screening Tobacco Screening [facility] Start: 08-12-2024 Tobacco Screening Tobacco Screening [facility] Start: 08-11-2024 Adult BMI Screening Adult BMI Screen ing [facility] Start: 06-09-2024 Depression Screening Depression Scre ening [facility] Start: 03-07-2024 End: 03-07-2024 Patient encounter procedure 03/07/2024 10:00 AM EDT Office Visit [facility] [address] [facility] [address] [place] [address] Naomie Thrasher MD [address] [facility] [place] [address] [facility] Start: 02-01-2024 End: 02-01-2024 Patient encounter procedure 02/01/2024 9:45 AM EDT Office Visit [facility] [address] [place] [address], [address] [place] [address] [place] [address] [place] [address] [place] [address] [facility] Start: 01-05-2024 End: 01-05-2024 Adenoidectomy primary age 14/> ADENOIDECTOMY Tonsillar hypertrophy Sleep apnea, unspecified type Recurrent streptococcal tonsillitis Snoring 01/05/2024 7:30 AM EST [facility] Start: 01-05-2024 End: 01-05-2024 Admission to same day surgery center 01/05/2024 7:30 AM EST - 01/05/2024 8:45 AM EST Surgery [address] [id number] Hugo Friedman MD [address] [facility] [place] [address] TONSILLECTOMY [01173 (CPT )] [facility] Surgery Comment on above: TONSILLECTOMY [95184 (CPT )] Start: 01-05-2024 Subsequent hospital visit by physician 01/05/2024 7:30 AM EST Hospital Encounter [facility] Surgery [address] [place] [id number] Hugo Friedman MD [address] [facility] [place] [address] [facility] Start: 01-05-2024 End: 01-05-2024 Tonsillectomy primary/secondary age 14/> TONSILLECTOMY Tonsillar hypertrophy Sleep apnea, unspecified type Recurrent streptococcal tonsillitis Snoring 01/05/2024 7:30 AM EST [facility] Start: 12-29-2023 End: 12-29-2023 Admission to establishment 12/29/2023 3:15 PM EST Support Visit [facility] On [address] [place] [address] [facility] Start: 07-09-2023 Influenza vaccination Influenza Vacc ine [facility] Start: 04-29-2023 [facility] Start: 05-27-2021 Screening for Chlamy robbie trachomatis Chlamydia screen [place] Start: 07-23-2020 End: 07-23-2020 Office Visit 07/23/2020 Office Visit Gastroenterology Raman Barnard MD [address] [place] [address] [facility] Start: 07-09-2020 Influenza vaccination [place] Start: 01-16-2020 End: 01-16-2020 Office Visit 01/16/2020 Office Visit Gastroenterology Raman Barnard MD [address] [place] [address] [facility] Start: 07-09-2019 Influenza vaccination Flu vaccine (# 1) [place] Start: 05-19-2019 Chlamydia screen Chlamydia screen [place], [place] Start: 05-19-2019 Screening for Chlamy robbie trachomatis Chlamydia screen [place] Start: 2018 Cervical cancer screen Cervical canc er screen [place] Start: 2018 Screening for malign ant neoplasm of cervix [facility] Start: 2016 DTaP/Tdap/Td vaccine (1 - Tdap) DTaP/Tdap/Td vaccine (1 - Tdap) [place] Start: 2015 Adult BMI Follow Up Plan Adult BMI Follow Up Plan [facility] Start: 2012 HPV vaccine (1 - Fem aramis 3-dose series) HPV vaccine (1 - Female 3-dose series) [place] Start: 2010 Varicella Vaccine (1 of 2 - 13+ 2-dose series) Varicella Vaccine (1 of 2 - 13+ 2-dose series) [place] Start: 2008 HPV vaccine (1 - 2-d ose series) HPV vaccine (1 - 2-dose series) [place] Start: 2003 Pneumococcal 0-64 ye ars Vaccine (1 of 3 - PCV13) Pneumococcal 0-64 years Vaccine (1 of 3 - PCV13) [place] Start: 2001 Varicella vaccine (2 of 2 - 2-dose childhood series) Varicella vaccine (2 of 2 - 2-dose childhood series) [place] End: 04-23-2020 Bacteria identified Cx Nom (U) Urine culture Microbiology Routine One Time for 1 Occurrences starting 04/23/2020 until 04/23/2020 [place] Comment on above: One Time for 1 Occur rences starting 04/23/2020 until 04/23/2020 Bacteria identified Cx Nom (U) Urine culture Microbiology [employer] Label Print 04/23/2020 8:50 PM EDT [place] nonstress test nonst ress test OB Routine Daily until discontinued starting 04/24/2020 [place] Comment on above: Daily until disconti nued starting 04/24/2020 Nonrebreather mask oxygen Nonrebreather mask oxygen Respiratory Care Routine As directed - RT (PRN) until discontinued starting 04/23/2020 [place] Comment on above: As directed - RT (IN N) until discontinued starting 04/23/2020 Patient Education Colon polyps [facility] Work Phone: End: 08-23-2019 , Urine , Urine Lab STAT One Time for 1 Occurrences starting 08/23/2019 until 08/23/2019 [place] Comment on above: One Time for 1 Occur rences starting 08/23/2019 until 08/23/2019 Surgical Pathology Surgical Path ology Lab Routine ONE TIME for 1 Occurrences starting 08/23/2019 [place] Comment on above: ONE TIME for 1 Occur rences starting 08/23/2019 End: 04-23-2020 SVE SVE Point of Care Testing Routine One Time for 1 Occurrences starting 04/23/2020 until 04/23/2020 [place] Comment on above: One Time for 1 Occur rences starting 04/23/2020 until 04/23/2020 Immunizations Immunization Date Immunization Notes Care Provider Angel vasquez 11-15-2020 influenza, injectabl e, quadrivalent, preservative free Angy Recinos RN [facility] 11-15-2020 influenza virus vacc ine, unspecified formulation Angy Recinos RN [facility] 09-13-2019 influenza, injectabl e, quadrivalent, contains preservative Angy Recinos RN [facility] 09-05-2018 influenza, injectabl e, quadrivalent, contains preservative Angy Recinos RN [facility] 09-02-2017 influenza, injectabl e, quadrivalent, contains preservative Angy Recinos RN [facility] 05-20-2017 tetanus toxoid, redu lc diphtheria toxoid, and acellular pertussis vaccine, adsorbed Angy Recinos RN [facility] 09-09-2016 influenza, injectabl e, quadrivalent, preservative free Angy Recinos RN [facility] 09-02-2015 tuberculin skin test ; purified protein derivative solution, intradermal Raman Barnard [place] 08-06-2015 influenza, seasonal, injectable, preservative free Angy Recinos RN [facility] 08-21-2014 influenza, seasonal, injectable, preservative free Angy Recinos RN [facility] 09-12-2013 influenza, seasonal, injectable, preservative free Angy Recinos RN [facility] 09-15-2012 influenza, seasonal, injectable, preservative free Angy Recinos RN [facility] 09-18-2011 influenza virus vacc ine, whole virus Angy Recinos RN [facility] 08-18-2010 influenza virus vacc ine, whole virus Angy Recinos RN [facility] 06-27-2010 hepatitis B vaccine, pediatric or pediatric/adolescent dosage Angy Recinos RN [facility] 06-27-2010 tetanus toxoid, redu lc diphtheria toxoid, and acellular pertussis vaccine, adsorbed Angy Recinos RN [facility] 02-28-2003 diphtheria, tetanus toxoids and acellular pertussis vaccine, unspecified formulation Angy Recinos RN [facility] 02-28-2003 measles, mumps and rubella virus vaccine Angy Recinos RN [facility] 02-28-2003 poliovirus vaccine, inactivated Angy Recinos RN [facility] 01-20-1999 diphtheria, tetanus toxoids and acellular pertussis vaccine, unspecified formulation Angy Recinos RN [facility] 01-20-1999 haemophilus influenz ae type b vaccine, HbOC conjugate Angy Recinos RN [facility] 12-16-1998 measles, mumps and rubella virus vaccine Angy Recinos RN [facility] 12-16-1998 varicella virus vaccine Angy Recinos RN [facility] 05-16-1998 diphtheria, tetanus toxoids and acellular pertussis vaccine, unspecified formulation Angy Recinos RN [facility] 05-16-1998 haemophilus influenz ae type b vaccine, conjugate unspecified formulation Angy Recinos RN [facility] 05-16-1998 trivalent poliovirus vaccine, live, oral Angy Recinos RN [facility] 03-14-1998 hepatitis B vaccine, pediatric or pediatric/adolescent dosage Angy Recinos RN [facility] 02-05-1998 diphtheria, tetanus toxoids and acellular pertussis vaccine, unspecified formulation Angy Recinos [facility] 02-05-1998 haemophilus influenz ae type b vaccine, conjugate unspecified formulation Angy Recinos [facility] 02-05-1998 poliovirus vaccine, inactivated Angy Recinos [facility] 1997 hepatitis B vaccine, pediatric or pediatric/adolescent dosage Angy Recinos [facility] Payers Date Payer Category Payer Self-pay 2022 Medicaid [id number] 2022 Medicaid [id number] 2019 Unknown BCBS BCBS OUT OF STATE [id number] 2019-Present [address] [place] [address] [id number] 2019 Unknown [id number] .[id number] 2019 Unknown BCBS BCBS OUT OF STATE xxxxxxxxxxxxxx 2019-Present [address] [place] [address] xxxxxxxxxxxxxx [id number] 2019 Unknown BCBS BCBS OUT OF STATE [id number] 2019-Present [address] [place] [address] [id number] .[id number] 2015 Unknown BC[place] - [place] P PO xxxxxxxxxxxx 2015-Present [address] [place] [address] xxxxxxxxxxxx [id number] .[id number] 1997 Unknown [id number] [id number] 1997 Unknown [id number] 2.16.840.1.084097.3.579.2.593 1997 Unknown [id number] 2.16.840.1.937233.3.579.2.593 1997 Unknown [id number] 2.16.840.1.602615.3.579.2.593 1997 Unknown [id number] 2.16.840.1.809974.3.579.2.593 1997 Unknown [id number] 2.16.840.1.612324.3.579.2.593 1997 Unknown [id number] 2.16.840.1.694601.3.579.2.128 6 1997 Unknown [id number] 2.16.840.1.527279.3.579.2.128 6 1997 Unknown [id number] 2.16.840.1.885384.3.579.2.128 6 1997 Unknown [id number] 2.16.840.1.309818.3.579.2.128 6 1997 Unknown [id number] 2.16.840.1.215291.3.579.2.125 9 1997 Unknown [id number] 2.16.840.1.016755.3.579.2.125 9 1997 Unknown [id number] 2.16.840.1.762458.3.579.2.125 9 1997 Unknown [id number] 2.16.840.1.448081.3.579.2.125 9 1997 Unknown [id number] 2.16.840.1.373380.3.579.2.125 9 1997 Unknown [id number] 2.16.840.1.368790.3.579.2.125 9 1997 Unknown [id number] 2.16.840.1.106995.3.579.2.125 9 1959 Unknown [id number] [id number] 1959 Unknown [id number] Unknown [facility] [id number] Unknown [id number] Social History Date Type Detail Facility Start: 08-23-2019 End: 12-16-2015 Tobacco smoking status AKIS Current some day smoker [place] Start: 08-23-2019 End: 12-19-2020 Alcohol intake No [facility] Start: 01-10-2019 Tobacco Comment a pack lasts a month or 2 [place] Start: 1997 Sex Assigned At Not on file [place] Start: 04-23-2020 End: 04-29-2023 Tobacco smoking status NHIS Former smoker [facility] End: 09-08-2019 History of tobacco use Current smoker [place] Start: 04-23-2020 End: 05-28-2020 Alcohol intake Current non-drinker of alcohol (finding) [place] Start: 09-10-2019 [place] Exposure to SARS-CoV -2 (event) Unable to assess [place] Start: 05-28-2020 End: 07-15-2023 Tobacco use and exposure Never used [place] Exposure to SARS-CoV -2 (event) Not sure [place] Start: 1997 Sex Assigned At Female F [facility] End: 11-08-2018 History of tobacco use Cigarette Smoker [facility] Start: 08-12-2023 End: 12-29-2023 Alcohol intake Current drinker of alcohol (finding) [facility] Start: 12-19-2020 End: 08-12-2023 History of Social function [facility] Adolescent depressio n screening assessment 12 [facility] Start: 06-14-2023 Tobacco Comment Quit age 18-19 -smoked 1-2 years, 1 pack lasted 3 months [facility] Start: 07-15-2023 Alcohol Comment yearly [facility] Start: 06-03-2023 End: 12-22-2023 Tobacco smoking status NHIS Never smoked tobacco [facility] Start: 06-03-2023 Alcohol Comment Less than lynette hly. caffeine: more than 4 cups per day [facility] Start: 01-20-2023 Gender identity Identifies as female gender (finding) [facility] Goals Date Patient Goal Desired Activity /State Clinical Notes 12-30-2021 to 01-02-2024 Telephone Encounter - Hugo Friedman MD - 01/02/2024 10:54 AM ESTTelephone Encounter - Hugo Friedman MD - 01/02/2024 10:54 AM Jerome Ray CNM - 12/22/2023 2:30 PM EST Note Date & Type Note Facility 01-02-2024 Miscellaneous Notes Post op pain meds documented in this encounter [facility] 01-02-2024 Telephone encounter Note Post op pain meds [facility] 12-29-2023 Instructions Formatting of th is note might be different from the original. Your surgery/procedure is scheduled at [facility] on January 05 at 730 Arrival Time 530 [facility] Address: [address] [place] [address]. [address] in [address] Parking lot located on [facility]. Report to the Entrance B. Check in at the information desk the surgery. The waiting room located on the second floor. If you have any questions prior to surgery, please call Pre-Admission Clinic at [phone] between 7:30 am and 4:30 pm Wednesday through Wednesday. If you have questions the morning of surgery, please call the Pre-op Department at [phone]. Notify your SURGEON if you develop any [...] would like to schedule therapy at a [facility] facility, please call [phone] ([phone]). Do not use lotions, creams, powders, perfume, make up, cologne or after-shaves day of surgery. Remove ALL jewelry including wedding rings, body piercings,hair extensions that contain metal, nail guamanian, make-up, and contact lens. You may brush [...] RIGHTS AND RESPONSIBILITIES As a patient at [facility], you have the right to: Receive medical care and be informed of who is taking care of you Be treated with dignity and respect Have a family member/customer retention representative of choice and your physician notified [...] of hospital charges and payment methods Patient/patient customer retention representative responsibilities are to: Provide information about health status to facilitate care, treatment and services Follow the treatment, plan, keep appointments and speak up when you do not understand the plan Respect the rights of other patients and healthcare personnel Follow organizational rules and regulations that support quality care and a safe environment Fulfill financial obligations as promptly as possible [facility] 12-29-2023 Miscellaneous Notes Patient states had a phone interview with Dr Garcia, and medications pre op and post op for day of surgery on 01/05/2024. Your surgery/procedure is scheduled at [facility] on January 05 at 730 Arrival Time 530 [facility] Address: [address] [place] [address]. [place], [place] [address] Park in [address] Parking lot located on [facility]. Report to the Entrance B. Check in at the information desk the surgery. The waiting room located on the second floor. If you have any questions prior to surgery, please call Pre-Admission Clinic at [phone] between 7:30 am and 4:30 pm Wednesday through Wednesday. If you have questions the morning of surgery, please call the Pre-op Department at [phone]. Notify your SURGEON if you develop any [...] would like to schedule therapy at a [facility] Re[facility] facility, please call [phone] ([phone]). Do not use lotions, creams, powders, perfume, make up, cologne or after-shaves day of surgery. Remove ALL jewelry including wedding rings, body piercings,hair extensions that contain metal, nail guamanian, make-up, and contact lens. You may brush [...] RIGHTS AND RESPONSIBILITIES As a patient at [facility], you have the right to: Receive medical care and be informed of who is taking care of you Be treated with dignity and respect Have a family member/customer retention representative of choice and your physician notified [...] of hospital charges and payment methods Patient/patient customer retention representative responsibilities are to: Provide information about [...] promptly as possible [facility] Nurse Note Patient states had a phone interview with Dr Garcia, and medications pre op and post op for day of surgery on 01/05/2024. [facility] History of Presen t illness Narrative Images from the original note were not included. PROBLEM VISIT Riri Alejandro is 28 y.o. a established patient. Here for No chief complaint on file. . Last pap: 01/18/23 Last mammogram: No LMP recorded. Patient has had an implant. History: Past Medical History: Diagnosis Date ADHD (attention deficit hyperactivity disorder) ([facility]) Asthma ([facility]) high schoool History of being hospitalized childbirth x1 06/24, ICU for strep throat 01/2023 Ulcerative colitis ([facility]) 2008 Past Surgical History: Procedure Laterality Date IN MEDICATION MANAGEMENT Procedure:medications;Disease:ul cerative colitis Family History [...] MA,12/22/2023 2:50 PM documented in this encounter [facility] 12-21-2023 Telephone encounter Note Gume left a VM asking what her diagnosis was from [facility] ..Her other Dr is asking and she did not remember .. Please call (can leave a message) and let her know what that is . Ty [phone] Looks like she was here last February [facility] 12-21-2023 Miscellaneous Notes Gume left a VM asking what her diagnosis was from [facility] ..Her other Dr is asking and she did not remember .. Please call (can leave a message) and let her know what that is . Ty [phone] Looks like she was here last February documented in this encounter [facility] 12-10-2023 Miscellaneous Notes Received fax that patient is scheduled for T and A on 01/05 @ [facility] w/ Dr. Jain Per Dr Sotelo office note: For her T+A, She will require DDAVP prior to surgery and then lysteda 1300 mg po q8 hours for 14 days. She should have her T+A at [facility]. Clearance faxed to ENT office and scanned into media. Spoke with patient. Reviewed plan for T and A in detail. Reviewed DDAVP, fluid restriction for 24 hours, post op lysteda. Reviewed to call if any trouble getting lysteda from pharmacy. Script sent to pharmacy documented in this encounter [facility] 12-10-2023 Telephone encounter Note Received fax that patient is scheduled for T and A on 01/05 @ [facility] w/ Dr. Jain Per Dr Sotelo office note: For her T+A, She will require DDAVP prior to surgery and then lysteda 1300 mg po q8 hours for 14 days. She should have her T+A at [facility]. Clearance faxed to ENT office and scanned into media. Spoke with patient. Reviewed plan for T and A in detail. Reviewed DDAVP, fluid restriction for 24 hours, post op lysteda. Reviewed to call if any trouble getting lysteda from pharmacy. Script sent to pharmacy [employer] 12-07-2023 History of Presen t illness Narrative [...] freq - daily. Imaging MR brain (09/2023, [facility]) - neg Testing Surgery Failed TPM 50 [...] difficult to control. Circad Noct oxim PSG ([facility]) - AHI=37, REM=12 vs 41, supine=46 vs 13; PLMI=6.8, PLMAI=5.8 PAPT ([facility]) - AHI=0.3 @ 13, still=7.5 supine @ [...] Diagnosis Date ADHD (attention deficit hyperactivity disorder) ([facility]) Asthma ([facility]) high schoool History of being hospitalized childbirth x1 06/24, ICU for strep throat 01/2023 Ulcerative colitis ([facility]) 2008 Past Surgical History: Procedure Laterality Date IN MEDICATION MANAGEMENT Procedure:medications;Disease:ul cerative colitis No Known [...] as of 12/07/2023. documented in this encounter [facility] 07-29-2023 Evaluation note Encounter Date Diagnosis Assessment Notes Jul, Ulcerative colitis (ICD-10 - K51.90) COLITIS IS SHOWING IN REMISSION AT THIS TIME. PATIENT TO CONTINUE ON THE HUMIRA. PATIENT WILL REPEAT CBC AND CMP IN 6 MONTHS [employer]* Encounter Date Diagnosis Assessment Notes Treatment Notes Treatment Clinical Notes 27 Apr, 2023 Ulcerative colitis (ICD-10 - K51.90) [facility] Other 04-04-2023 Evaluation note* Encounter Date Diagnosis Assessment Notes Treatment Notes Treatment Clinical Notes Feb, Ulcerative colitis (ICD-10 - K51.90) Obtain labs from [facility] Mary Dickinsonira Proceed with colonoscopy [facility] Other 03-01-2022 History general Narrative - Reported* Type Description Date Hospitalization History throat closed 01/2022 [facility] Other 03-01-2022 History general Narrative - Reported* Type Description Date Medical History ulcerative colitis Medical History STORAGE POOLS Medical History sleep apnea Hospitalization History throat closed 01/2022 [facility] Other 02-22-2022 Evaluation note* Encounter Date Diagnosis Assessment Notes Treatment Notes Treatment Clinical Notes Dec, Colitis (ICD-10 - K52.9) RTO 6 MONTHS [facility] Other Evaluation noteNo InformationNort [employer] Other [employer] note* Diagnosis Onset Date Resolution Status Ulcerative colitis [facility] Work Phone: Evaluation note* Diagnosis Tonsillar hypertrophy Hypertrophy of tonsils alone Sleep apnea Unspecified sleep apnea Recurrent streptococcal tonsillitis Snoring Other dyspnea and respiratory abnormality Platelet function defect (CMS-HCC)- Primary Tonsillar hypertrophy Hypertrophy of tonsils alone Sleep apnea, unspecified type Recurrent streptococcal tonsillitis Snoring Other dyspnea and respiratory abnormality documented in this encounter [facility] GeoSentric SystemEvaluation note* Diagnosis JENSEN (obstructive sleep apnea)- Primary Obstructive sleep apnea (adult) (pediatric) Migraine without aura, intractable, without status migrainosus (CMS/HCC) 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) documented in this encounter [facility] HealthcareEvaluation note* Diagnosis Folliculitis- Primary Other specified disease of hair and hair follicles documented in this encounter [facility] HealthcareEvaluation note* Diagnosis Sleep apnea, unspecified type- Primary documented in this encounter [facility] SystemEvaluation note* Diagnosis Onset Date Resolution Status GERD (gastroesophageal reflux disease) acute Ulcerative colitis [facility] Work Phone: Hospital Discharge instructions Additional Instructions DISCHARGE INSTRUCTIONS FOR [...] if you have any problems. -Office number [phone] Work Phone: InstructionsNot on filedocumented in this encounter [facility] SystemInstructionsNot on filedocumented in this encounter [facility] Ge[facility] SystemInstructionsNot on filedocumented in this encounter [facility] Summary Purpose Family History No Family History Records Found Relationship Condition Age at Onset Recorded Date/T cece grandparent Heart disease Unknown Diabetes mellitus Unknown Sleep apnea Unknown grandparent Malignant neoplasm Unknown father Diabetes mellitus Unknown Advance Directives No Advanced Directives Records FoundDocuments on File Type Date Recorded 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 Advance Directives and Living Will Power of Artists' Model Latest Code Status on File Code Status Date Activated Date Inactivated Comments Full Code 12/07/2018 6:20 PM 12/09/2018 9:25 PM Full Code 12/07/2018 5:59 AM 12/07/2018 5:55 PM Full Code 06/19/2017 9:49 PM 06/21/2017 12:29 PM Full Code 06/18/2017 4:59 PM 06/19/2017 9:49 PM Full Code 06/18/2017 12:49 PM 06/18/2017 4:59 PM Documents on File Type Date Recorded 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 documented in this encounter* Instructions* Cindy So RN - 04/23/2020 OUTPATIENT DISCHARGE Jessica Mullen [facility] [place] or [address] Dr. Clancy Dr. Castro, Felecia LOPEZ Godwin Ray [facility] Felecia Paige [facility] Tati Olmedo [facility] ACTIVITY LIMITATIONS: ( )Up and about [...] Everywhere. * Coronavirus Disease (COVID-19): General Info (Czech) documented in this encounter* Discharge Instr - Activity* Shelly Guerrero RN - 05/29/2020 8:16 AM EDT As tolerated * Discharge Instr - Diet* Shelly Guerrero RN - 05/29/2020 8:16 AM EDT General diet * Additional Instructions* Shelly Guerrero RN - 05/29/2020 Follow-up with your OB doctor as specified. [facility] OB Department phone: Dr. Jake Grossman [facility] Dr. Matthew Carpenter [facility] [address] [facility] [address] [place] or [place] Godwin Ray, MSN, LACEWORKER, CNM [facility] [address] [facility] [address] [address] Cl[address] [facility] [id number] Felecia Paige CN [address] [place], [place] [id number] Tati Olmedo CNM [address] [place] [address] [place] [address] [place] [address] [phone] DIET Eat a well balanced diet focusing on foods high in fiber and protein. Drink plenty of fluids especially water. To avoid constipation you may take a mild stool softener as recommended by your doctor or design technician. ACTIVITY Gradually increase your activity. Resume exercise regimen only after advice by your doctor or design technician. Avoid lifting anything heavier than a gallon of milk for SIX weeks. Avoid driving until your doctor or design technician has given their approval. Rise slowly from [...] have thoughts of harming yourself or your . If infant will not stop crying, contact another adult for help or place in their crib on their back and [...] medications as recommended by your doctor or design technician for pain If you develop a warm, [...] vitamins as directed by your doctor or design technician. Refer to the booklet in the folder/binder for more information. If you feel you need more assistance or have questions, please call Megan Turner IBCLC, senior analytic consultant, at or the OB department to [...] they become loose or soiled. If used, Yobany should be removed by your care provider. [...] cannot be sent through Care Everywhere. * (Czech) documented in this encounter* Instructions* Heller, Basia Olivia, RN - 05/22/2020 Home Undelivered Discharge Instructions After Discharge Orders: Future Appointments Date Time Provider Department Center 05/27/2020 8:00 AM [facility] L&D INDUCTION [facility] [place] HOD 07/23/2020 2:15 PM Raman Barnard MD [...] swishes, or rolls. Call your physician or design technician if there have not been 10 kicks in 2 hours Call physician or design technician, return to Labor and Delivery, call 911, or go to the nearest Emergency Room if: increased leakage or fluid, contractions more than 6 per 30 minutes, decreased movement, persistent low back pain or cramping, bleeding from vaginal area, difficulty urinating, pain withurination, difficulty breathing or new calf pain electronic equipment set up operator scripts from [facility] in [place] and take as directed. documented in this [...] Patient given discharge instructions at this time. Reuse Technician offered to go sinan them and patient [...] pressure OBJECTIVE: Vitals: 05/27/20 2230 05/27/20 2235 05/27/20224305/27/202244 BP: (!) 96/59 Pulse: 83 Resp: Temp: TempSrc: SpO2: 98% 98% 98% Weight: Height: heart rate: Baseline Heart Rate: 130 Accelerations: present Wildlife Ecology Professor Variability: moderate Decelerations: variable Contraction frequency: 2-4 [...] and I feel sleepy now OBJECTIVE: Vitals: 05/27/20 2005 05/27/20 2008 05/27/20200905/27/202018 BP: 106/64 Pulse: 94 Resp: Temp: TempSrc: SpO2: 100% 99% 99% Weight: Height: heart rate: Baseline Heart Rate: 135 Accelerations: present Wildlife Ecology Professor Variability: moderate Decelerations: absent Contraction frequency: 2-3 [...] sitting upright in bed for epidural from [id number]. FHR not tracing on monitor yet FHR [...] rate: Baseline Heart Rate: 125 Accelerations: present Wildlife Ecology Professor Variability: moderate Decelerations: absent Contraction frequency: 2-3 [...] rate: Baseline Heart Rate: 130 Accelerations: present Senior Living Variability: moderate Decelerations: absent Contraction frequency: 2-3 [...] NR Final HIV: No results found for: [id number] Results for orders placed or performed during [...] # 1.62 1.10 - 3.70 k/uL Absolute [place] # 0.75 0.10 - 1.20 k/uL Absolute [...] Discharge Medication: Riri Alejandro Home Medication Instructions PRICE:[phone] Printed on:05/29/20 0748 Medication Information Adalimumab (HUMIRA) [...] Ulcerative Colitis Reason for Visit Ulcerative colitis Chief Complaint 6 month follow up Reason for Visit GERD (gastroesophage al reflux disease) Ulcerative colitis Additional Source Comments INFORMATION SOURCE (unrecogn ized section and content) DATE CREATED AUTHOR 04/29/2018 [facility] DATE CREATED AUTHOR AUTHOR'S ORGANIZ ATION 02/16/2023 [facility] DATE CREATED AUTHOR AUTHOR'S ORGANIZ ATION 03/22/2023 [facility] DATE CREATED AUTHOR AUTHOR'S ORGANIZ ATION 05/03/2023 [facility] DATE CREATED AUTHOR AUTHOR'S ORGANIZ ATION 01/12/2024 [facility] DATE CREATED AUTHOR AUTHOR'S ORGANIZ ATION 03/29/2024 [facility] EPIC Reason for Visit (unrecogniz ed section and content) Status Reason Specialty Diagnoses / Procedures Referre d By Contact Referred To Contact Diagnoses Ulcerative pancolitis (HCC) ULCERATIVE PANCOILITIS WITHOUT COMPLICATION Procedures IN COLONOSCOPY FLX DX W/COLLJ SPEC WHEN PFRMD COLONOSCOPY DIAGNOSTIC Raman Barnard MD [address] [place] [address] [place] [address] [facility] Reason Comments Abdominal Pain Reason Comments Scheduled Induction Status Reason Specialty Diagnoses / Procedures Referre d By Contact Referred To Contact Diagnoses Term Myriam Ray, LACEWORKER - CNM [address] [place] [address] [facility] Reason Onset Date Comments Surgical Or Dental Clearance 12/10/2023 Reason Comments Migraine Care Teams (unrecognized sec tion and content) Team Status: Active Member Role Status Dates MARCELINO Stafford Primary Care Provider Active Team Status: Inactive Member Role Status Dates Jm Bell MD Attending Provider Active MARCELINO Stafford Primary Care Provider Active [employer] Relationship Specialty Start Date End Date Maegan Lara, LACEWORKER-PROCESS PLANNER [address] [facility], [place] [address] [phone] PCP - General Family Medicine 06/09/23 [employer] Relationship Specialty Start Date End Date Unallocated, Noms Provider Feder[place] [address] PCP - General 05/24/23 [employer] Relationship Specialty Start Date End Date Unallocated, Noms Provider [address] [place] [address] PCP - General 05/24/23 [employer] Relationship Specialty Start Date End Date Unallocated, Noms Provider [address] [place] [address] PCP - General 05/24/23 [employer] Relationship Specialty Start Date End Date Unallocated, Noms Provider [address] [place] [address] PCP - General 05/24/23 [employer] Relationship Specialty Start Date End Date Maegan Lara APRN-CNP [address] [facility] [place] [phone] PCP - [facility] Family Medicine 06/09/23 T[employer] Relationship Specialty Start Date End Date Maegan Lara APRN-CNP [address] [facility] [place] [phone] PCP - [facility] Family Medicine 06/09/23 Team Status: Inactive Member Role Status Dates Maegan Lara , OPERATIONAL COMMUNICATION CHIEF-C Primary Care Provider Active Start: January 31, 2024 End: January 31, 2024 Jm Bell MD Attending Provider Active Start: January 31, 2024 End: January 31, 2024 Goals (unrecognized section and content) Goals may be documented in a n alternate section FOR RECORDS PERTAINING TO PATIENTS WHO ARE [...] BE BASED ON THE PRIMARY CLINICAL RECORDS. [facility] [employer] [facility]. provides no warranty or guarantee of the accuracy or completeness of information in this document.
== END 2024-04-05 09:39 | disposition home or self-care (01) ==
LOC: PM 09:38
PROVIDERS: PCP Nurse Practitioner Family; Visit Provider Nurse Practitioner
DX: M54.16 Radiculopathy, lumbar region (principal); M79.605 Pain in left leg; M54.42 Lumbago with sciatica, left side
CPT/HCPCS: G0463